=== PATIENT | male | born 1965 | race Caucasian/White ===

== ENCOUNTER 2022-04-08 16:29 | Inpatient (IN) ==
[2022-04-08] MEDS ORDERED: IOPAMIDOL 100 ML BOTTLE IV ONE (16:30)
[2022-04-08] MEDS ORDERED: LACTATED RINGERS 1,000 ML IV ONE (16:31)
[2022-04-08] MEDS ORDERED: ONDANSETRON 4 MG/2 ML VIAL IV ONE (16:31)
[2022-04-08] MEDS ORDERED: morphine 10 MG/ML VIAL IV ONE ×2 (16:31→18:18)
[2022-04-08] MEDS ORDERED: 0.9 % SODIUM CHLORIDE 1,000 ML IV ONE (16:55)
[2022-04-08 17:00] LABS: POC Calcium, Ionized 1.04 (1.16-1.32); POC Creatinine 1.5 (0.6-1.2); POC Potassium 3.5 (3.3-5.1)
[2022-04-08] MEDS ORDERED: PIPERACILLIN SODIUM/TAZOBACTAM 3.375 GM in DEXTROSE 5% IN WATER 50 ML IV ONE (17:03)
[2022-04-08 17:26] LABS: Basophils # (Auto) 0.06 K/mcL (0.00-0.30); Basophils % (Auto) 0.7 % (0.0-2.0); Eosinophils # (Auto) 0.05 K/mcL (0.00-0.70); Eosinophils % (Auto) 0.6 % (0.0-7.0); Hematocrit 33.2 % (40.1-51.0); Hemoglobin 11.5 g/dL (13.7-17.5); Lymphocytes # (Auto) 1.69 K/mcL (1.50-4.80); Lymphocytes % (Auto) 19.7 % (15.5-49.0); Mean Cell Volume 98.5 fL (80.0-100.0); Mean Corpuscular HGB Conc 34.6 g/dL (31.0-36.0); Mean Platelet Volume 11.9 fL (7.4-10.4); Monocytes # (Auto) 0.68 K/mcL (0.10-0.90); Monocytes % (Auto) 7.9 % (1.0-12.0); Neutrophils % (Auto) 70.6 % (38.0-78.0); Platelet Count 144 K/mcL (140-440); RBC 3.37 M/mcL (4.63-6.08); Red Cell Distribution Width 13.4 % (11.5-14.5); WBC 8.6 K/mcL (4.5-11.0)
[2022-04-08 17:44] LABS: ALT/SGPT 19 U/L (<40); AST/SGOT 287 U/L (<40); Albumin 3.8 gm/dL (3.2-5.2); Alkaline Phosphatase 169 U/L (39-117); Bilirubin,Direct < 0.2 mg/dL (0-0.3); Bilirubin,Total 0.6 mg/dL (0.1-1.0); Globulin 2.5 gm/dL (2.2-3.7)
--- NOTE | 2022-04-08 17:57 | Cat Scan Report ---
CLINICAL INFORMATION: Epigastric pain COMPARISON: Abdomen and pelvic CT 12/10/2016 TECHNIQUE: Following enteric contrast, 80 cc of Isovue-370 were injected intravenously, and 60 seconds later, 0.625 mm helical slices were obtained from the mid heart through the subtrochanteric regions. Following reconstruction, 2.5 mm sagittal, coronal and axial reformatted images were processed and reviewed at bone, lung and soft tissue windows. Five minutes later, 0.625 mm helical slices were obtained from the mid heart through the kidneys and viewed at soft tissue windows.The exam was performed using radiation dose optimization techniques including, but not limited to, automated exposure control, adjustment of the mA and/or kV according to patient size and use of iterative reconstruction technique. FINDINGS: Left diaphragm is moderately dated resulting in mild compressive subsegmental atelectasis in the overlying left lower lobe. This is a new finding. Remaining lung bases are clear. The visualized heart is grossly normal. No effusions. Abdominal images show mild fatty change within the liver. The gallbladder is enlarged with slight wall thickening/enhancement moderate rim of pericholecystic fluid. No stones identified. Intrahepatic, common hepatic and common bile duct have increased in caliber and are now moderately dilated colon CBD 12 mm. There is abrupt tapering of the intrapancreatic common bile duct in the ampullary region. No definite stone or mass identified, however. The pancreas is mildly enlarged and inhomogeneous low attenuation with moderate dilatation of pancreatic duct: diameter 4 mm. There is moderate fluid in the peripancreatic fat planes compatible with acute interstitial pancreatitis. Fluid extends into the lesser sac with a small amount in the mesentery. Both kidneys, adrenal glands, spleen and aorta, including aortic branches are normal in size configuration and attenuation without focal lesion. There is no adenopathy or free air Pelvic images show mild prostate enlargement: transverse dimension 5 cm. Mild diffuse wall thickening urinary bladder noted. Scattered sigmoid diverticula appreciated.. Moderate wall thickening of the right colon mild wall thickening of the transverse and left colon. Small bowel and stomach are grossly normal. Bone windows show no osseous abnormality IMPRESSION: 1. Severe acute interstitial pancreatitis. There is no necrosis, pseudocyst or other complication. Small amount of free fluid noted. 2. Moderate gallbladder enlargement with wall enhancement and pericholecystic fluid. This could indicate associated cholecystitis. No stones identified. Intrahepatic, common bile and pancreatic ducts are all moderately dilated to the ampullary level. No stone or mass identified. Stones may however be occult on CT. Suggest ultrasound to evaluate for stones and the gallbladder and possibly choledocholithiasis. 3. Moderate wall thickening of the ascending colon with mild wall thickening of the transverse and descending colon. The patient could have ischemic, inflammatory or infectious colitis as a secondary process. Consider colonoscopy. 4. Mild prostate enlargement with wall thickening urinary bladder compatible chronic bladder outlet narrowing related to prostatism. Interpreted and Authenticated by: Moo Woods 04/08/22
--- NOTE | 2022-04-08 18:22 | Emergency Department Note ---
Abdominal Pain HPI General Chief Complaint: Abdominal Pain Stated Complaint: ABD pain Time Seen by Provider: 04/08/22 16:30 Source: patient and EMS Mode of arrival: EMS History of Present Illness HPI Narrative: Narrative: This is a 56-year-old male with a history of significant alcohol use he reports he drinks about a half a gallon of whiskey every 4 days, prior history of alcohol use reports sudden onset mid epigastric abdominal pain that started 1 hour prior to arrival there is associated nausea and vomiting. He also has a history of H. pylori infection. He reports he was in his usual state of health prior to the onset of his symptoms. There has been no associated fevers or chills. There is no alleviating or exacerbating factors. His pain radiates into his back. Related Data Home Medications Medication Instructions Recorded Confirmed oxygen 2 L as needed See Rx Instructions .Route .COMPLEX 08/13/20 03/19/22 omeprazole 20 mg capsule,delayed See Rx Instructions .Route .COMPLEX 12/03/20 03/19/22 release losartan 100 mg tablet 100 mg PO QDAY 05/27/21 03/19/22 tamsulosin 0.4 mg capsule 0.4 mg PO QDAY PRN 01/07/22 03/19/22 furosemide 20 mg tablet 10 mg PO PRN 03/19/22 03/19/22 Previous Rx's Medication Instructions Recorded melatonin 5 mg tablet 5 mg PO .COMPLEX PRN sleep #60 tabs 08/23/20 fluticasone 250 mcg-salmeterol 50 1 inh inhalation BID #60 ea 03/13/21 mcg/dose blistr powdr for inhalation (Advair Diskus) albuterol sulfate 90 mcg/actuation 2 puff inhalation .Q4-6H PRN 09/30/21 aerosol inhaler (Ventolin HFA) wheezing and/or shortness of breath #18 grams folic acid 1 mg tablet 1 mg PO QDAY #90 tabs 11/19/21 ferrous sulfate 325 mg (65 mg 325 mg PO BID #60 tabs 12/17/21 iron) tablet pregabalin 75 mg capsule (Lyrica) 75 mg PO BID #60 caps 12/17/21 hydrocodone 7.5 mg-acetaminophen 1 tab PO .COMPLEX PRN pain #120 04/07/22 325 mg tablet tabs Allergies Allergy/AdvReac Type Severity Reaction Status Date / Time amlodipine Allergy Unknown Itching Verified 04/08/22 16:29 Terazosin Allergy Unknown Itching Verified 04/08/22 16:29 Review of Systems ROS ROS Narrative: Narrative: All systems ED: reviewed and negative except as stated. PFSH Narrative Patient History Narrative: Narrative: Medical/Surgical/Family History All Active Problems Acute pancreatitis (Acute) Chronic back pain (Acute) Strain of left hip (Acute) Duodenitis (Acute) Increased serum lipase level (Acute) H. pylori infection (Acute) C. difficile colitis (Acute) Colitis (Acute) Upper GI hemorrhage (Chronic) Hypertension (Chronic) Back pain (Chronic) Pain in joint, multiple sites (Chronic) Neutrophilia (Chronic) Screening for malignant neoplasm of colon (Chronic) Screening for malignant neoplasm of prostate (Chronic) Tobacco dependence (Chronic) Alcohol dependence (Chronic) Chronic bronchitis (Chronic) Hypertension (Chronic) GERD (gastroesophageal reflux disease) (Chronic) Anxiety (Chronic) Arthritis (Chronic) Muscle pain (Chronic) Daytime sleepiness (Chronic) Heart problem (Chronic) History of arthroplasty of right ankle (Chronic ~2015) Cellulitis of foot (Chronic) Urticaria (Chronic) COPD (chronic obstructive pulmonary disease) (Chronic) Bilateral lower extremity edema (Chronic) Eczema (Chronic) Claudication of both lower extremities (Chronic) Stasis dermatitis (Chronic) Prostatitis (Chronic) Difficulty urinating (Chronic) Dizziness (Chronic) Syncope (Chronic) Pneumonia (Chronic) Hypotension (Chronic) Tooth abscess (Chronic) Dysphagia (Chronic) Hypokalemia (Chronic) Ascending aorta enlargement (Chronic) Aortic root enlargement (Chronic) Low back pain (Chronic) Chronic pain (Chronic) Tobacco use (Chronic) 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) use of opiate analgesic (Chronic) Spondylosis without myelopathy or radiculopathy, lumbar region (Acute) Spondylosis without myelopathy or radiculopathy, lumbosacral region (Acute) Decreased renal function (Acute) Blurred vision, bilateral (Acute) Alteration in vision (Acute) History of Helicobacter pylori infection (Acute) Episode of gagging (Acute) Nausea & vomiting (Acute) Low folate (Acute) Iron deficiency anemia (Acute) Resistant hypertension (Chronic) Excessive chloride salt intake (Chronic) Hyponatremia (Chronic) Alcohol abuse (Acute) Medical History Alcohol dependence Anxiety Arthritis Back pain Chronic alcohol use Chronic bronchitis Chronic pain Daytime sleepiness GERD (gastroesophageal reflux disease) Heart problem Hypertension Iron deficiency anemia 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) use of opiate analgesic for nonmalignant pain Low back pain Low folate Muscle pain Neutrophilia Pain in joint, multiple sites Screening for malignant neoplasm of colon Screening for malignant neoplasm of prostate Tobacco dependence Tobacco use Surgical History History of arthroplasty of right ankle (~2015) due to fracture Family History Family/Other Cancer Hypertension Mother Hypertension Arthritis Father Arthritis Hypertension Sister Arthritis Chronic pain Social History Smoking Status: Current every day smoker Alcohol Intake Frequency: 2+ drinks per day Substance Use: does not use Exam Narrative Narrative: Narrative: Vital signs noted General: Awake. Alert. Significant distress HEENT: NCAT PERRL EOMI. No conjunctivitis. Membranes moist. Neck: Supple, trachea midline Cardiovascular: RRR. No murmur. No rubs. No gallops. Respiratory: No respiratory distress. Breath sounds equal. Lungs clear. Gastrointestinal: Soft. Midepigastric tenderness to palpation there is voluntary guarding diffusely Musculoskeletal: No pain. No soft tissue swelling. Good ROM. No signs injury Skin: Warm. Dry. No rash Neurologic: Alert and oriented x3 moves all extremities equally and fully, speech is fluent face is symmetric Course Vital Signs Vital signs: Vital Signs Temperature 96.6 F L 04/08/22 16:29 Pulse Rate 68 04/08/22 16:29 Respiratory Rate 20 04/08/22 16:29 Blood Pressure 138/103 04/08/22 16:29 Pulse Oximetry (%) 100 04/08/22 16:29 Oxygen Delivery Method 04/08/22 16:29 Temperature 96.6 F L 04/08/22 16:29 Pulse Rate 73 04/08/22 18:39 Respiratory Rate 20 04/08/22 16:29 Blood Pressure 140/97 04/08/22 18:39 Pulse Oximetry (%) 100 04/08/22 18:39 Oxygen Delivery Method 04/08/22 16:29 [facility] MDM Narrative Medical decision making narrative: Narrative: Patient presents to the emergency department with midepigastric pain. His lipase is found to be 1700, CT scan is concerning for acute pancreatitis there is also inflammatory changes including pericholecystic fluid gallbladder wall thickening. His AST is mildly elevated likely related to his alcohol use, ALT is not significantly elevated, his bilirubin is 0.6 reviewing with low suspicion for an obstructed biliary stone. I did speak with Dr. Mackay on-call for surgery that these are likely secondary findings from the pancreatitis. He did recommen d obtaining an ultrasound and would like to be consulted for the case. I did give patient Zosyn he will be given 30 cc/kg of IV fluids. He has required multiple doses of IV pain medications for his pancreatitis. Lab Data Result diagrams: 04/08/22 16:47 Labs: Lab Results 04/08/22 04/08/22 04/08/22 Range/Units 16:47 16:47 16:50 WBC 8.6 (4.5-11.0) K/mcL RBC 3.37 L (4.63-6.08) M/mcL Hgb 11.5 L (13.7-17.5) g/dL Hct 33.2 L (40.1-51.0) % POC Hct (41-55) MCV 98.5 (80.0-100.0) fL MCH 34.1 H (26.0-34.0) pg MCHC 34.6 (31.0-36.0) g/dL RDW 13.4 (11.5-14.5) % Plt Count 144 (140-440) K/mcL MPV 11.9 H (7.4-10.4) fL Immature Gran % (Auto) 0.5 (0.0-0.5) % Neut % (Auto) 70.6 (38.0-78.0) % Lymph % (Auto) 19.7 (15.5-49.0) % Bailey % (Auto) 7.9 (1.0-12.0) % Eos % (Auto) 0.6 (0.0-7.0) % Baso % (Auto) 0.7 (0.0-2.0) % Lymph # (Auto) 1.69 (1.50-4.80) K/mcL Bailey # (Auto) 0.68 (0.10-0.90) K/mcL Eos # (Auto) 0.05 (0.00-0.70) K/mcL Baso # (Auto) 0.06 (0.00-0.30) K/mcL Immature Gran # 0.04 (0.00-0.05) K/mcl Absolute Neutrophils 6.04 (1.80-8.00) K/mcL POC VBG pH 7.44 H (7.32-7.42) POC VBG pCO2 at Temp 27.3 L (41-51) POC VBG pO2 30 (25-40) POC VBG HCO3 18.3 L (24-28) POC VBG Total CO2 19.0 L (25-29) POC Venous O2 Sat 61.0 (40-70) POC VBG Base Excess -6.0 L (-2-2) VBG Lactic Acid 5.2 H* (0.5-2) POC Sodium (133-145) POC Potassium (3.3-5.1) POC Chloride (96-108) POC Total CO2 (22-30) POC BUN (6-20) POC Creatinine (0.6-1.2) POC Glucose (70-105) POC WB Ioniz Calcium (1.16-1.32) Total Bilirubin 0.6 (0.1-1.0) mg/dL Direct Bilirubin < 0.2 (0-0.3) mg/dL AST 287 H (<40) U/L ALT 19 (<40) U/L Alkaline Phosphatase 169 H (39-117) U/L Total Protein 6.3 (5.9-8.4) gm/dL Albumin 3.8 (3.2-5.2) gm/dL Globulin 2.5 (2.2-3.7) gm/dL Lipase 1755 H (7-60) U/L POC Troponin I (0.02-0.08) 04/08/22 04/08/22 Range/Units 16:54 16:56 WBC (4.5-11.0) K/mcL RBC (4.63-6.08) M/mcL Hgb (13.7-17.5) g/dL Hct (40.1-51.0) % POC Hct 38.0 L (41-55) MCV (80.0-100.0) fL MCH (26.0-34.0) pg MCHC (31.0-36.0) g/dL RDW (11.5-14.5) % Plt Count (140-440) K/mcL MPV (7.4-10.4) fL Immature Gran % (Auto) (0.0-0.5) % Neut % (Auto) (38.0-78.0) % Lymph % (Auto) (15.5-49.0) % Bailey % (Auto) (1.0-12.0) % Eos % (Auto) (0.0-7.0) % Baso % (Auto) (0.0-2.0) % Lymph # (Auto) (1.50-4.80) K/mcL Bailey # (Auto) (0.10-0.90) K/mcL Eos # (Auto) (0.00-0.70) K/mcL Baso # (Auto) (0.00-0.30) K/mcL Immature Gran # (0.00-0.05) K/mcl Absolute Neutrophils (1.80-8.00) K/mcL POC VBG pH (7.32-7.42) POC VBG pCO2 at Temp (41-51) POC VBG pO2 (25-40) POC VBG HCO3 (24-28) POC VBG Total CO2 (25-29) POC Venous O2 Sat (40-70) POC VBG Base Excess (-2-2) VBG Lactic Acid (0.5-2) POC Sodium 135 (133-145) POC Potassium 3.5 (3.3-5.1) POC Chloride 101 (96-108) POC Total CO2 19.0 L (22-30) POC BUN 13 (6-20) POC Creatinine 1.5 H (0.6-1.2) POC Glucose 101 (70-105) POC WB Ioniz Calcium 1.04 L (1.16-1.32) Total Bilirubin (0.1-1.0) mg/dL Direct Bilirubin (0-0.3) mg/dL AST (<40) U/L ALT (<40) U/L Alkaline Phosphatase (39-117) U/L Total Protein (5.9-8.4) gm/dL Albumin (3.2-5.2) gm/dL Globulin (2.2-3.7) gm/dL Lipase (7-60) U/L POC Troponin I 0.01 L (0.02-0.08) Discharge Plan Patient/Caregiver Discharge Instructions Pt seen by [facility]/PA only: No Clinical Impression: Acute pancreatitis Patient Disposition: Xfer As Inpt ([facility]) Condition: Serious Follow up with: Pasquale Laboy, JASPREET [Primary Care Provider] - Prescriptions: No Action melatonin 5 mg tablet 5 mg PO .COMPLEX PRN (Reason: sleep) Qty: 60 2RF Rx Instructions: 5 mg PO 1-2 tabs q HS prn for insomnia PRN; albuterol sulfate [Ventolin HFA] 90 mcg/actuation HFA aerosol inhaler 2 puff INHALATION .Q4-6H PRN (Reason: wheezing and/or shortness of breath) Qty: 18 5RF folic acid 1 mg tablet 1 mg PO QDAY Qty: 90 1RF hydrocodone-acetaminophen 7.5-325 mg tablet 1 tab PO .COMPLEX PRN (Reason: pain) Qty: 120 0RF Rx Instructions: 1 tab orally q 6 hrs prn for pain. Max of 4/day. Must last 30 days. PRN; tamsulosin 0.4 mg capsule 0.4 mg PO QDAY PRN oxygen 2 L as needed See Rx Instructions .ROUTE .COMPLEX Rx Instructions: Nasal as needed; omeprazole 20 mg capsule,delayed release(DR/EC) See Rx Instructions .ROUTE .COMPLEX Dose Instruction: take 1 capsule by mouth once daily Rx Instructions: take capsule by mouth once daily losartan 100 mg tablet 100 mg PO QDAY furosemide 20 mg tablet 10 mg PO PRN fluticasone propion-salmeterol [Advair Diskus] 250-50 mcg/dose blister with device 1 inh INHALATION BID Qty: 60 5RF ferrous sulfate 325 mg (65 mg iron) tablet 325 mg PO BID Qty: 60 2RF pregabalin [Lyrica] 75 mg capsule 75 mg PO BID Qty: 60 2RF
--- NOTE | 2022-04-08 20:49 | Internal Med History&Physical ---
HPI History of Present Illness Patient information: Note initiated : 04/08/22 at 8:41 pm Service Date, if different from initiated Date: [] Patient: Artie Zavala 56 y/o M admitted on for ABD pain. Chief Complaint: [] History of present illness: Mr. Zavala is a 56 year old male with a history of hypertension, COPD, GERD, tobacco use disorder, alcohol use disorder who presented to the emergency department for abdominal pain and found to have acute pancreatitis. CT abdomen pelvis with contrast showed severe acute interstitial pancreatitis with no evidence of necrosis pseudocyst or other complication. The CT scan also showed moderate gallbladder enlargement with gallbladder wall enhancement and pericholecystic fluid, no gallstones identified. The patient drinks of substantial amount of alcohol daily and has had episodes of acute pancreatitis before. Laboratory work-up in the ED shows the patient also has an acute kidney injury, elevated lactic acid, hypocalcemia, elevated AST with normal ALT consistent with alcoholic hepatitis. Lipase level was 1755. Review of systems Constitutional: no fever, fatigue, or weight loss Eyes: no vision changes or pain Cardiovascular: no chest pain, no palpitations Respiratory: no cough or dyspnea Gastrointestinal: Positive for epigastric abdominal pain radiating to back. Genitourinary: no dysuria or difficulty voiding Musculoskeletal: no arthralgia or myalgia Integumentary: no skin lesion or wound Neurological: no focal weakness or numbness Psychiatric: no anxiety or depression Physical exam Head: Atraumatic, normal inspection. Eyes: normal appearance, no scleral icterus. Neck: full ROM Respiratory: no respiratory distress. Cardiovascular: normal rate and rhythm, S1, S2. GI/Abdominal: Distended abdomen, diffusely tender, involuntary guarding. Extremities: full range of motion, nontender. Neurological: CN II-XII intact, intact motor, intact sensation. Psychiatric: normal mood. Skin: warm, normal color PFSH PFSH All Active Problems Acute pancreatitis (Acute) Chronic back pain (Acute) Strain of left hip (Acute) Duodenitis (Acute) Increased serum lipase level (Acute) H. pylori infection (Acute) C. difficile colitis (Acute) Colitis (Acute) Upper GI hemorrhage (Chronic) Hypertension (Chronic) Back pain (Chronic) Pain in joint, multiple sites (Chronic) Neutrophilia (Chronic) Screening for malignant neoplasm of colon (Chronic) Screening for malignant neoplasm of prostate (Chronic) Tobacco dependence (Chronic) Alcohol dependence (Chronic) Chronic bronchitis (Chronic) Hypertension (Chronic) GERD (gastroesophageal reflux disease) (Chronic) Anxiety (Chronic) Arthritis (Chronic) Muscle pain (Chronic) Daytime sleepiness (Chronic) Heart problem (Chronic) History of arthroplasty of right ankle (Chronic ~2016) Cellulitis of foot (Chronic) Urticaria (Chronic) COPD (chronic obstructive pulmonary disease) (Chronic) Bilateral lower extremity edema (Chronic) Eczema (Chronic) Claudication of both lower extremities (Chronic) Stasis dermatitis (Chronic) Prostatitis (Chronic) Difficulty urinating (Chronic) Dizziness (Chronic) Syncope (Chronic) Pneumonia (Chronic) Hypotension (Chronic) Tooth abscess (Chronic) Dysphagia (Chronic) Hypokalemia (Chronic) Ascending aorta enlargement (Chronic) Aortic root enlargement (Chronic) Low back pain (Chronic) Chronic pain (Chronic) Tobacco use (Chronic) Chronic alcohol use (Chronic) penitentiary (current) use of opiate analgesic (Chronic) Spondylosis without myelopathy or radiculopathy, lumbar region (Acute) Spondylosis without myelopathy or radiculopathy, lumbosacral region (Acute) Decreased renal function (Acute) Blurred vision, bilateral (Acute) Alteration in vision (Acute) History of Helicobacter pylori infection (Acute) Episode of gagging (Acute) Nausea & vomiting (Acute) Low folate (Acute) Iron deficiency anemia (Acute) Resistant hypertension (Chronic) Excessive chloride salt intake (Chronic) Hyponatremia (Chronic) Alcohol abuse (Acute) Medical History Alcohol dependence Anxiety Arthritis Back pain Chronic alcohol use Chronic bronchitis Chronic pain Daytime sleepiness GERD (gastroesophageal reflux disease) Heart problem Hypertension Iron deficiency 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 analgesic for nonmalignant pain Low back pain Low folate Muscle pain Neutrophilia Pain in joint, multiple sites Screening for malignant neoplasm of colon Screening for malignant neoplasm of prostate Tobacco dependence Tobacco use Surgical History History of arthroplasty of right ankle (~2016) due to fracture Family History Family/Other Cancer Hypertension Mother Hypertension Arthritis Father Arthritis Hypertension Sister Arthritis Chronic pain Social History marital status: physical activity: none smoking status: Current every day smoker tobacco type: cigarettes per day: 1 smoking status start date: 07/26/81 alcohol intake frequency: 2+ drinks per day substance use type: does not use seatbelt use: always MEDS/ALLERGIES Home Medications and Allergies Home Medications Medication Instructions Recorded Confirmed Type oxygen 2 L as needed See Rx Instructions .Route .COMPLEX 08/13/20 03/19/22 History melatonin 5 mg tablet 5 mg PO .COMPLEX PRN sleep #60 tabs 08/23/20 03/19/22 Rx omeprazole 20 mg capsule,delayed See Rx Instructions .Route .COMPLEX 12/03/20 03/19/22 History release fluticasone 250 mcg-salmeterol 50 1 inh inhalation BID #60 ea 03/13/21 03/19/22 Rx mcg/dose blistr powdr for inhalation (Advair Diskus) losartan 100 mg tablet 100 mg PO QDAY 05/27/21 03/19/22 History albuterol sulfate 90 mcg/actuation 2 puff inhalation .Q4-6H PRN 09/30/21 03/19/22 Rx aerosol inhaler (Ventolin HFA) wheezing and/or shortness of breath #18 grams folic acid 1 mg tablet 1 mg PO QDAY #90 tabs 11/19/21 03/19/22 Rx ferrous sulfate 325 mg (65 mg 325 mg PO BID #60 tabs 12/17/21 03/19/22 Rx iron) tablet pregabalin 75 mg capsule (Lyrica) 75 mg PO BID #60 caps 12/17/21 03/19/22 Rx tamsulosin 0.4 mg capsule 0.4 mg PO QDAY PRN 01/07/22 03/19/22 History furosemide 20 mg tablet 10 mg PO PRN 03/19/22 03/19/22 History hydrocodone 7.5 mg-acetaminophen 1 tab PO .COMPLEX PRN pain #120 04/07/22 Rx 325 mg tablet tabs Allergies Allergy/AdvReac Type Severity Reaction Status Date / Time amlodipine Allergy Unknown Itching Verified 04/08/22 16:29 Terazosin Allergy Unknown Itching Verified 04/08/22 16:29 EXAM Constitutional Vitals: Temp Pulse Resp BP Pulse Ox O2 Del Method 96.6 F L 83 20 123/93 98 04/08/22 16:29 04/08/22 20:36 04/08/22 16:29 04/08/22 20:36 04/08/22 20:36 04/08/22 16:29 DATA Data Completed and Pending Labs: Labs from last 24 hours 04/08/22 04/08/22 04/08/22 16:56 16:54 16:50 WBC RBC Hgb Hct POC Hct 38.0 L MCV MCH MCHC RDW Plt Count MPV Immature Gran % (Auto) Neut % (Auto) Lymph % (Auto) Mineral % (Auto) Eos % (Auto) Baso % (Auto) Lymph # (Auto) Mineral # (Auto) Eos # (Auto) Baso # (Auto) Immature Gran # Absolute Neutrophils POC VBG pH 7.44 H POC VBG pCO2 at Temp 27.3 L POC VBG pO2 30 POC VBG HCO3 18.3 L POC VBG Total CO2 19.0 L POC Venous O2 Sat 61.0 POC VBG Base Excess -6.0 L VBG Lactic Acid 5.2 H* POC Sodium 135 POC Potassium 3.5 POC Chloride 101 POC Total CO2 19.0 L POC BUN 13 POC Creatinine 1.5 H POC Glucose 101 POC WB Ioniz Calcium 1.04 L Total Bilirubin Direct Bilirubin AST ALT Alkaline Phosphatase Total Protein Albumin Globulin Lipase POC Troponin I 0.01 L 04/08/22 04/08/22 16:47 16:47 WBC 8.6 RBC 3.37 L Hgb 11.5 L Hct 33.2 L POC Hct MCV 98.5 MCH 34.1 H MCHC 34.6 RDW 13.4 Plt Count 144 MPV 11.9 H Immature Gran % (Auto) 0.5 Neut % (Auto) 70.6 Lymph % (Auto) 19.7 Mineral % (Auto) 7.9 Eos % (Auto) 0.6 Baso % (Auto) 0.7 Lymph # (Auto) 1.69 Mineral # (Auto) 0.68 Eos # (Auto) 0.05 Baso # (Auto) 0.06 Immature Gran # 0.04 Absolute Neutrophils 6.04 POC VBG pH POC VBG pCO2 at Temp POC VBG pO2 POC VBG HCO3 POC VBG Total CO2 POC Venous O2 Sat POC VBG Base Excess VBG Lactic Acid POC Sodium POC Potassium POC Chloride POC Total CO2 POC BUN POC Creatinine POC Glucose POC WB Ioniz Calcium Total Bilirubin 0.6 Direct Bilirubin < 0.2 AST 287 H ALT 19 Alkaline Phosphatase 169 H Total Protein 6.3 Albumin 3.8 Globulin 2.5 Lipase 1755 H POC Troponin I Pending A/P Narrative A/P Narrative: Assessment: 56 year old male with a history of hypertension, COPD, GERD, tobacco use disorder, alcohol use disorder admitted for moderate to severe acute pancreatitis likely secondary to alcohol. CT abdomen pelvis with contrast showed severe acute interstitial pancreatitis as well as moderate gallbladder enlargement and wall enhancement and pericholecystic fluid, no gallstones identified on CT scan. #Moderate to severe acute pancreatitis likely secondary to alcohol #Acute kidney injury secondary to acute pancreatitis #Moderate gallbladder wall enhancement and pericholecystic fluid #Severe alcohol use disorder #Severe tobacco use disorder #COPD #Hypertension #GERD Plan -IV fluid, monitor urine output and volume status. -Analgesics as needed. -Monitor CBC, inpatient panel. -Replace electrolytes as needed. -Follow-up right upper quadrant ultrasound report. -Home medication reconciliation, continue important meds. -Nicotine replacement. -Monitor for alcohol withdrawal. -Thiamine and folic acid supplementation. -Clear liquid diet. -DVT prophylaxis: Lovenox -CODE STATUS: Programmer Spent With Patient Time: Total time spent is greater than 50% in coordination of care (as documented) at patient's floor/unit and/or counseling patient:
[2022-04-08] MEDS: LACTATED RINGERS 1,000 ML IV SCH (21:20)
[2022-04-08] MEDS ORDERED: ACETAMINOPHEN 325 MG TABLET PO PRN (21:43)
[2022-04-08] MEDS ORDERED: SENNOSIDES 1 TABLET PO PRN (21:43)
[2022-04-08] MEDS ORDERED: ONDANSETRON 4 MG/2 ML VIAL IV PRN (21:43)
[2022-04-08] MEDS ORDERED: HYDROmorphone 0.5 MG/0.5 ML SYRINGE IV PRN (21:43)
[2022-04-08] MEDS ORDERED: LACTULOSE 20 GM/30 ML ORAL.SOL PO PRN (21:43)
[2022-04-08] MEDS ORDERED: NICOTINE POLACRILEX 2 MG GUM CHEW/PARK PRN (21:43)
[2022-04-08] MEDS: 0.9 % SODIUM CHLORIDE 10 ML SYRINGE IV SCH (21:52)
[2022-04-08] MEDS: HYDROmorphone 1 MG/ML SYRINGE IV PRN ×2 (21:55→23:49)
[2022-04-08] MEDS ORDERED: HYDROmorphone 1 MG/ML SYRINGE ONE (22:06)
[2022-04-09] MEDS: LACTATED RINGERS 1,000 ML IV SCH ×3 (01:26→11:16)
--- NOTE | 2022-04-09 02:56 | Ultrasound Report ---
CLINICAL INFORMATION: Right upper quadrant pain COMPARISON: None. FINDINGS: Liver is normal in size with elevated echotexture compatible fatty change. No focal hepatic lesion. The gallbladder is enlarged with mild wall thickening. No stones identified. A 4 mm polyp noted in the gallbladder fundus, but no stones identified. Common bile duct is moderately dilated colon 12 mm. No stone could be identified within the common bile duct however. The pancreas is mildly enlarged and heterogeneous compatible with the diagnosis of pancreatitis. Small amount of free fluid noted. IMPRESSION: 1. Moderately enlarged gallbladder with diffuse wall thickening. No stones identified. This could represent associated acalculus cholecystitis. 2. Moderate dilatation of the common bile duct. No stone identified within the duct. Note: Stones in the common bile duct may not be detected by ultrasound. Suggest gastroenterology referral in consultation for ERCP 3, Heterogeneous pancreas compatible with the CT diagnosis of acute interstitial pancreatitis. Interpreted and Authenticated by: Moo Woods 04/09/22
[2022-04-09] MEDS: NICOTINE 21 MG PATCH TOPICAL SCH ×2 (05:34→10:42)
[2022-04-09] MEDS: 0.9 % SODIUM CHLORIDE 10 ML SYRINGE IV SCH ×3 (05:45→20:19)
[2022-04-09 06:49] LABS: Basophils # (Auto) 0.06 K/mcL (0.00-0.30); Basophils % (Auto) 0.3 % (0.0-2.0); Eosinophils # (Auto) 0.04 K/mcL (0.00-0.70); Eosinophils % (Auto) 0.2 % (0.0-7.0); Hematocrit 32.9 % (40.1-51.0); Hemoglobin 11.4 g/dL (13.7-17.5); Lymphocytes # (Auto) 0.33 K/mcL (1.50-4.80); Lymphocytes % (Auto) 1.7 % (15.5-49.0); Mean Cell Volume 101.9 fL (80.0-100.0); Mean Corpuscular HGB Conc 34.7 g/dL (31.0-36.0); Mean Platelet Volume 12.2 fL (7.4-10.4); Monocytes # (Auto) 0.59 K/mcL (0.10-0.90); Monocytes % (Auto) 3.1 % (1.0-12.0); Neutrophils % (Auto) 94.3 % (38.0-78.0); Platelet Count 123 K/mcL (140-440); RBC 3.23 M/mcL (4.63-6.08); Red Cell Distribution Width 13.7 % (11.5-14.5); WBC 19.3 K/mcL (4.5-11.0)
[2022-04-09 06:58] LABS: ALT/SGPT 34 U/L (<40); AST/SGOT 213 U/L (<40); Albumin 3.2 gm/dL (3.2-5.2); Albumin/Globulin Ratio 1.2 (1.0-2.3); Alkaline Phosphatase 280 U/L (39-117); Bilirubin,Direct 0.3 mg/dL (<0.3); Bilirubin,Total 0.7 mg/dL (0.1-1.0); Blood Urea Nitrogen 9 mg/dL (6-20); Calcium 7.8 mg/dL (8.6-10.4); Carbon Dioxide 19 mmol/L (22-30); Chloride 98 mmol/L (96-108); Globulin 2.6 gm/dL (2.2-3.7); Glomerular Filtration Rate 94; Glucose 84 mg/dL (70-105); Lactate Dehydrogenase 309 U/L (135-225); Phosphorous 3.2 mg/dL (2.5-4.5); Triglycerides 89 mg/dL (<150)
[2022-04-09] MEDS: FOLIC ACID 1 MG TABLET PO SCH (09:00)
[2022-04-09] MEDS: ENOXAPARIN 40 MG/0.4 ML SYRINGE SQ SCH (09:00)
[2022-04-09] MEDS ORDERED: MAGNESIUM SULFATE 2 GM/50 ML BAG IV ONE (09:00)
[2022-04-09] MEDS: HYDROmorphone 1 MG/ML SYRINGE IV PRN (09:12)
[2022-04-09] MEDS ORDERED: HYDROmorphone 1 MG/ML SYRINGE IV PRN (10:30)
[2022-04-09] MEDS: OMEPRAZOLE 20 MG CAPSULE PO SCH (11:04)
[2022-04-09] MEDS: LOSARTAN 50 MG TABLET PO SCH (11:04)
[2022-04-09] MEDS: FLUTICASONE/SALMETEROL 250/50 INHALER #14 INH SCH ×2 (11:06→21:40)
[2022-04-09] MEDS: 0.9 % SODIUM CHLORIDE 1,000 ML IV SCH ×4 (11:23→23:25)
[2022-04-09] MEDS: THIAMINE 100 MG in 0.9 % SODIUM CHLORIDE 50 ML IV SCH (11:23)
[2022-04-09] MEDS ORDERED: LORazepam 2 MG/ML VIAL IV PRN (11:32)
[2022-04-09] MEDS: cefTRIAXone 2 GM in DEXTROSE 5% IN WATER 50 ML IV SCH (12:44)
[2022-04-09] MEDS: metroNIDAZOLE 500 MG/100 ML BAG IV SCH ×2 (14:16→21:39)
[2022-04-09] MEDS: LORazepam 2 MG/ML VIAL IV PRN ×2 (14:58→22:44)
--- NOTE | 2022-04-09 15:08 | Internal Med Progress Note ---
SUBJECTIVE Subjective Patient information: Note initiated : 04/09/22 at 3:03 pm Service Date, if different from initiated Date: [] Patient: Artie Zavala 56 y/o M admitted on 04/08/22 for ABD pain. Chief Complaint: [] Interval history: Mr. Zavala is a 56 year old male with a history of hypertension, COPD, GERD, tobacco use disorder, alcohol use disorder who presented to the emergency department for abdominal pain and found to have acute pancreatitis. CT abdomen pelvis with contrast showed severe acute interstitial pancreatitis with no rowan dence of necrosis pseudocyst or other complication. The CT scan also showed moderate gallbladder enlargement with gallbladder wall enhancement and pericholecystic fluid, no gallstones identified. The patient drinks of substantial amount of alcohol daily and has had episodes of acute pancreatitis b efore. Laboratory work-up in the ED shows the patient also has an acute kidney injury, elevated lactic acid, hypocalcemia, elevated AST with normal ALT consistent with alcoholic hepatitis. Lipase level was 1755. 04/09 Patient had a high-grade temp overnight, leukocytosis noted from a morning labs. Acute kidney injury resolved with IV fluid. Lactic acid downtrending. Right upper quadrant ultrasound showed a moderately enlarged gallbladder with diffuse wall thickening, no stones identified. There is also moderate dilation of the common bile duct, no stone identified within the duct. Started empiric ceftriaxone and metronidazole IV for possible acalculous cholecystitis. MRCP ordered, GI and surgery consulted. Continue clear liquid diet for now. Physical exam Head: Atraumatic, normal inspection. Eyes: normal appearance, no scleral icterus. Neck: full ROM Respiratory: no respiratory distress. Cardiovascular: normal rate and rhythm, S1, S2. GI/Abdominal: Distended abdomen, diffusely tender, involuntary guarding. Extremities: full range of motion, nontender. Neurological: CN II-XII intact, intact motor, intact sensation. Psychiatric: normal mood. Skin: warm, normal color Constitutional Vitals: Vital Signs Temp Pulse Resp BP Pulse Ox O2 Del Method O2 Flow Rate 98.3 F 94 H 19 157/109 95 2 04/09/22 08:33 04/09/22 08:33 04/09/22 13:25 04/09/22 10:01 04/09/22 08:33 04/09/22 00:00 04/09/22 00:00 Period Temp Pulse Resp BP Sys/Mata Pulse Ox O2 Del Method O2 Flow Rate Last 24 Hr 96.6 F-100.3 F 65-104 11-20 122-176/85-113 90-100 Nasal Cannula-Room Air 2-3 Intake and Output 04/09/22 04/09/22 04/09/22 05:59 13:59 21:59 Intake Total 2530 1101 Output Total 275 275 Balance 2255 826 Weight 61.779 kg Patient Weight 04/10/22 05:59 Weight 61.779 kg Intake & Output: Intake & Output 04/09/22 04/09/22 04/09/22 05:59 13:59 21:59 Intake Total 2530 1101 Output Total 275 275 Balance 2255 826 Weight 61.779 kg Intake: IV 2000 1101 Lactated Ringers 1,000 ml @ 250 2000 1000 mls/hr IV .Q4H [facility] Rx#: [id number] Vitamin B1 100 mg In Sodium 51 Chloride 0.9% 50 ml @ 50 mls/hr IV DAILY [facility] Rx#:[id number] Oral 530 Output: Void Amount 275 275 Other: Urine Appearance Clear Clear Urine Color Bright Yellow Light Leyla Urine Odor Normal Normal Stool Size Small Stool Color Brown Stool Consistency Watery Loose # Voids 1 # Bowel Movements 1 OBJ DATA Labs CBC & Chem 7: 04/09/22 05:26 04/09/22 05:26 Labs: Abnormal Lab Results 04/09/22 04/09/22 04/08/22 05:26 05:26 22:24 WBC 19.3 H RBC 3.23 L Hgb 11.4 L Hct 32.9 L POC Hct MCV 101.9 H MCH 35.3 H Plt Count 123 L MPV 12.2 H Neut % (Auto) 94.3 H Lymph % (Auto) 1.7 L Lymph # (Auto) 0.33 L Immature Gran # 0.08 H Absolute Neutrophils 18.16 H POC VBG pH POC VBG pCO2 at Temp POC VBG HCO3 POC VBG Total CO2 POC VBG Base Excess VBG Lactic Acid 3.3 H Sodium 129 L Carbon Dioxide 19 L POC Total CO2 POC Creatinine Calcium 7.8 L POC WB Ioniz Calcium Magnesium 1.3 L Direct Bilirubin 0.3 H GGT 599 H AST 213 H Alkaline Phosphatase 280 H Lactate Dehydrogenase 309 H Total Protein 5.8 L Lipase POC Troponin I 04/08/22 04/08/22 04/08/22 16:56 16:54 16:50 WBC RBC Hgb Hct POC Hct 38.0 L MCV MCH Plt Count MPV Neut % (Auto) Lymph % (Auto) Lymph # (Auto) Immature Gran # Absolute Neutrophils POC VBG pH 7.44 H POC VBG pCO2 at Temp 27.3 L POC VBG HCO3 18.3 L POC VBG Total CO2 19.0 L POC VBG Base Excess -6.0 L VBG Lactic Acid 5.2 H* Sodium Carbon Dioxide POC Total CO2 19.0 L POC Creatinine 1.5 H Calcium POC WB Ioniz Calcium 1.04 L Magnesium Direct Bilirubin GGT AST Alkaline Phosphatase Lactate Dehydrogenase Total Protein Lipase POC Troponin I 0.01 L 04/08/22 04/08/22 16:47 16:47 WBC RBC 3.37 L Hgb 11.5 L Hct 33.2 L POC Hct MCV MCH 34.1 H Plt Count MPV 11.9 H Neut % (Auto) Lymph % (Auto) Lymph # (Auto) Immature Gran # Absolute Neutrophils POC VBG pH POC VBG pCO2 at Temp POC VBG HCO3 POC VBG Total CO2 POC VBG Base Excess VBG Lactic Acid Sodium Carbon Dioxide POC Total CO2 POC Creatinine Calcium POC WB Ioniz Calcium Magnesium Direct Bilirubin GGT AST 287 H Alkaline Phosphatase 169 H Lactate Dehydrogenase Total Protein Lipase 1755 H POC Troponin I Meds: Medications Acetaminophen (Acetaminophen 325 Mg Tablet) 650 mg PO Q6HP PRN; Protocol PRN Reason: Per Pain Protocol/Fever > 101 Hydrocodone Bitart/Acetaminophen (Hydrocodone/Apap 5/325mg Tablet) 1 tab PO Q4HP PRN; Protocol PRN Reason: Per Pain Protocol Albuterol Sulfate (Albuterol Sulfate 200 Puff Inhaler) 2 puff INH Q4-6HP PRN PRN Reason: wheezing and/or shortness of breath Enoxaparin Sodium (Enoxaparin 40 Mg/0.4 Ml Syringe) 40 mg SQ DAILY [facility] Last Admin: 04/09/22 09:00 Dose: 40 mg Folic Acid (Folic Acid 1 Mg Tablet) 1 mg PO DAILY [facility] Last Admin: 04/09/22 09:00 Dose: 1 mg Hydromorphone HCl (Hydromorphone 0.5 Mg/0.5 Ml Syringe) 0.5 - 1 mg IV Q2HP PRN; Protocol PRN Reason: Per Pain Protocol Thiamine HCl 100 mg/ Sodium (Chloride) 51 mls @ 50 mls/hr IV DAILY [facility] Stop: 04/11/22 10:02 Last Infusion: 04/09/22 13:08 Dose: Infused Ceftriaxone Sodium 2 gm/ (Dextrose) 50 mls @ 100 mls/hr IV Q24H [facility]; Protocol Last Admin: 04/09/22 12:44 Dose: 100 mls/hr Metronidazole (Flagyl) 500 mg in 100 mls @ 100 mls/hr IV Q8H [facility]; Protocol Last Admin: 04/09/22 14:16 Dose: 100 mls/hr Sodium Chloride (Sodium Chloride 0.9%) 1,000 mls @ 250 mls/hr IV .Q4H [facility] Last Admin: 04/09/22 11:23 Dose: 250 mls/hr Lactulose (Lactulose 20 Gm/30 Ml Oral.Sarah) 10 gm PO DAILYP PRN PRN Reason: Constipation Lorazepam (Lorazepam 2 Mg/Ml Vial) 1 mg IV Q1HP PRN PRN Reason: ANXIETY/SEDATION Last Admin: 04/09/22 14:58 Dose: 1 mg Losartan Potassium (Losartan 50 Mg Tablet) 100 mg PO DAILY [facility] Last Admin: 04/09/22 11:04 Dose: 100 mg Nicotine (Nicotine 21 Mg Patch) 21 mg TOPICAL DAILY@1000 [facility] Last Admin: 04/09/22 10:42 Dose: 21 mg Nicotine Polacrilex (Nicotine Polacrilex 2 Mg Gum) 2 mg CHEW/PARK Q4HP PRN PRN Reason: Nicotine Cravings Omeprazole ([facility] 20 Mg Capsule) [facility] Admin: 04/09/22 11:04 Dose: 20 mg Ondansetron HCl (Ondansetron 4 Mg/2 Ml Vial) 4 mg IV Q4HP PRN; Protocol PRN Reason: Nausea And Vomiting Last Admin: 04/08/22 23:48 Dose: 4 mg Oxycodone/Acetaminophen (Oxycodone/Apap 5/325mg Tablet) 1 tab PO Q4HP PRN; Protocol PRN Reason: Per Pain Protocol Pregabalin (Pregabalin 75 Mg Capsule) 75 mg PO BID [facility] Fluticasone/Salmeterol (Fluticasone/Salmeterol 250/50 Inhaler #14) 1 puff INH BID [facility] Last Admin: 04/09/22 11:06 Dose: Not Given Senna (Sennosides 1 Tablet) 2 tab PO HSP PRN PRN Reason: Constipation Sodium Chloride (0.9 % Sodium Chloride 10 Ml Syringe) 10 ml IV Q8 [facility] Last Admin: 04/09/22 14:21 Dose: Not Given A/P Narrative A/P Narrative: Assessment: 56 year old male with a history of hypertension, COPD, GERD, tobacco use disorder, alcohol use disorder admitted for moderate to severe acute pancreatitis likely secondary to alcohol. CT abdomen pelvis with contrast showed severe acute interstitial pancreatitis as well as moderate gallbladder enlargement and wall enhancement and pericholecystic fluid, no gallstones identified on CT scan. #Moderately severe acute pancreatitis likely secondary to alcohol #Concern for acalculous cholecystitis #Dilated common bile duct #Resolved acute kidney injury secondary to acute pancreatitis #Thrombocytopenia #Hyponatremia #Severe alcohol use disorder #Severe tobacco use disorder #COPD #Hypertension #GERD Plan -IV fluid, monitor urine output and volume status. -Analgesics as needed. -Ceftriaxone and metronidazole IV for possible acalculous cholecystitis. -General surgery consulted for possible acalculous cholecystitis. -GI consulted for dilated common bile duct occurring in the setting of acute pancreatitis. -MRCP ordered. -Monitor CBC, inpatient panel. -Replace electrolytes as needed. -Continue home losartan, Prilosec, Lyrica. -Nicotine replacement. -Monitor for alcohol withdrawal with CIWA scores. -Thiamine and folic acid supplementation. -Clear liquid diet. -DVT prophylaxis: Lovenox -CODE STATUS: Scale Manager Spent With Patient Time: Total time spent is greater than 50% in coordination of care (as documented) at patient's floor/unit and/or counseling patient: QUALITY VTE Deep Vein Thrombosis/Pulmonary Embolism Present on Admission: No
--- NOTE | 2022-04-09 16:13 | Magnetic Resonance Report ---
CLINICAL INFORMATION: Interstitial pancreatitis. Gallbladder enlargement with wall thickening possible associated cholecystitis. Also common bile and pancreatic duct dilatation. Evaluate for choledocholithiasis COMPARISON: Abdomen and pelvic CT 04/08/2022. TECHNIQUE: MRCP was performed using 3D FRFSE respiratory triggered and single-shot FSE thick slab technique. Axial T2 SSFSE and coronal SSFSE images were obtained through the upper abdomen as well. FINDINGS: Gallbladder is mildly enlarged with wall thickening and pericholecystic fluid. There are no stones within the gallbladder. Intrahepatic, common hepatic common bile ducts are mildly dilated colon CBD is 8 mm. No stones identified within the common bile duct. Pancreatic duct is only slightly dilated 3 mm. There is increased T2 signal throughout the pancreas compatible with acute interstitial pancreatitis. Moderate edema and peripancreatic fat planes Liver is normal in size and signal intensity. There is an 8 mm simple cyst superior right hepatic lobe. Both adrenal glands, spleen and aorta unremarkable. Leak Left diaphragm mildly elevated. Tiny bilateral pleural effusions noted IMPRESSION: 1. Mild dilatation of the intrahepatic, common hepatic and common bile ducts. No evidence, however, for choledocholithiasis. 2. Acute interstitial pancreatitis. Pancreatic duct is only slightly dilated proximally 3. Mild gallbladder enlargement with diffuse wall thickening. Patient could have as coexistent acalculous cholecystitis. Interpreted and Authenticated by: Moo Woods 04/09/22
--- NOTE | 2022-04-09 16:48 | General Surgery Consult Note ---
HPI Data of Consult Consult date: 04/09/22 Requesting physician: Odin Westbrook Primary Care Provider: JASPREET Wall Consult Narrative Patient Information: Note initiated : 04/09/22 at 4:46 pm Service Date, if different from initiated Date: [] Patient: Artie Zavala 56 y/o M admitted on 04/08/22 for ABD pain. Chief Complaint: [] Reason for consult: Abdominal pain, pancreatitis, dilated biliary ducts without stones cc:: CC: Odin Westbrook MD 56-year-old male with a long history of chronic alcohol abuse who developed acute onset of severe upper abdominal pain in the midepigastrium on yesterday. This was followed by nausea and vomiting. A few hours later he presented to the emergency room complaining of abdominal pain. Labs reveaed White blood count 8.6, hemoglobin 11.5, hematocrit 33.2, AST 285, ALT 19, alkaline phos 169. Lipase was 1750. CT of the abdomen showed dilated gallbladder with mild wall thickening and pericholecystic fluid but no stones. Common bile duct was also felt to be dilated. Upper abdominal ultrasound showed mild thickening of the gallbladder wall without stones but with dilated ducts. MRCP which was just completed shows no evidence of filling defect in the common bile duct to the common bile duct is dilated. Patient's white blood count increased today to 19,300. Lipase was not repeated today. At the present time the patient complains of diffuse pain in his upper abdomen more prominent on the left and midline than on the right. He also has some mid abdominal pain. Constitutional Constitutional: Present lethargy, malaise and weakness EENT Ears: Absent tinnitus Nose, mouth and throat: Absent dysphagia or hoarseness Cardiovascular Cardiovascular: Present dyspnea, dyspnea on exertion and rapid heart rate; Absent palpatations or pedal edema Respiratory Respiratory: Present cough and dyspnea on exertion Gastrointestinal Gastrointestinal: Present abdominal pain, heartburn, nausea and vomiting Genitourinary Genitourinary: urinary frequency, urinary hesitancy and urinary incontinence Musculoskeletal Musculoskeletal: Present arthralgias, muscle cramps and myalgias; Absent abnormal gait Integumentary Integumentary: Present changing lesions, new lesions, rash, sores and unusual bruising; Absent jaundice Neurological Neurological: Present weakness; Absent abnormal gait, behavioral changes, convulsions, restless legs, syncope or vertigo Psychiatric Psychiatric: Absent mood swings Endocrine Endocrine: Absent palpitations Hematologic/Lymphatic Hematologic/Lymphatic: Absent easy bleeding, easy bruising or lymphadenopathy Allergic/Immunologic Allergic/Immunologic: Absent tongue swelling, uticaria or wheezing PFSH PFSH All Active Problems Chronic alcoholism (Acute) Acute pancreatitis (Acute) Chronic back pain (Acute) Strain of left hip (Acute) Duodenitis (Acute) Increased serum lipase level (Acute) H. pylori infection (Acute) C. difficile colitis (Acute) Colitis (Acute) Upper GI hemorrhage (Chronic) Hypertension (Chronic) Back pain (Chronic) Pain in joint, multiple sites (Chronic) Neutrophilia (Chronic) Screening for malignant neoplasm of colon (Chronic) Screening for malignant neoplasm of prostate (Chronic) Tobacco dependence (Chronic) Alcohol dependence (Chronic) Chronic bronchitis (Chronic) Hypertension (Chronic) GERD (gastroesophageal reflux disease) (Chronic) Anxiety (Chronic) Arthritis (Chronic) Muscle pain (Chronic) Daytime sleepiness (Chronic) Heart problem (Chronic) History of arthroplasty of right ankle (Chronic ~2015) Cellulitis of foot (Chronic) Urticaria (Chronic) COPD (chronic obstructive pulmonary disease) (Chronic) Bilateral lower extremity edema (Chronic) Eczema (Chronic) Claudication of both lower extremities (Chronic) Stasis dermatitis (Chronic) Prostatitis (Chronic) Difficulty urinating (Chronic) Dizziness (Chronic) Syncope (Chronic) Pneumonia (Chronic) Hypotension (Chronic) Tooth abscess (Chronic) Dysphagia (Chronic) Hypokalemia (Chronic) Ascending aorta enlargement (Chronic) Aortic root enlargement (Chronic) Low back pain (Chronic) Chronic pain (Chronic) Tobacco use (Chronic) Chronic alcohol use (Chronic) prison (current) use of opiate analgesic (Chronic) Spondylosis without myelopathy or radiculopathy, lumbar region (Acute) Spondylosis without myelopathy or radiculopathy, lumbosacral region (Acute) Decreased renal function (Acute) Blurred vision, bilateral (Acute) Alteration in vision (Acute) History of Helicobacter pylori infection (Acute) Episode of gagging (Acute) Nausea & vomiting (Acute) Low folate (Acute) Iron deficiency anemia (Acute) Resistant hypertension (Chronic) Excessive chloride salt intake (Chronic) Hyponatremia (Chronic) Alcohol abuse (Acute) Medical History Alcohol dependence Anxiety Arthritis Back pain Chronic alcohol use Chronic bronchitis Chronic pain Daytime sleepiness GERD (gastroesophageal reflux disease) Heart problem Hypertension Iron deficiency anemia prison (current) use of opiate analgesic for nonmalignant pain Low back pain Low folate Muscle pain Neutrophilia Pain in joint, multiple sites Screening for malignant neoplasm of colon Screening for malignant neoplasm of prostate Tobacco dependence Tobacco use Surgical History History of arthroplasty of right ankle (~2015) due to fracture Family History Family/Other Cancer Hypertension Mother Hypertension Arthritis Father Arthritis Hypertension Sister Arthritis Chronic pain Social History marital status: physical activity: none smoking status: Current every day smoker tobacco type: cigarettes per day: 1 smoking status start date: 07/26/81 alcohol intake frequency: 2+ drinks per day substance use type: does not use seatbelt use: always MEDS/ALLERGIES Home Medications and Allergies Home Medications Medication Instructions Recorded Confirmed Type oxygen 2 L as needed See Rx Instructions .Route .COMPLEX 08/13/20 03/19/22 History melatonin 5 mg tablet 5 mg PO .COMPLEX PRN sleep #60 tabs 08/23/20 03/19/22 Rx omeprazole 20 mg capsule,delayed 20 mg PO QAM 12/03/20 04/09/22 History release fluticasone 250 mcg-salmeterol 50 1 inh inhalation BID #60 ea 03/13/21 04/09/22 Rx mcg/dose blistr powdr for inhalation (Advair Diskus) losartan 100 mg tablet 100 mg PO QDAY 05/27/21 04/09/22 History albuterol sulfate 90 mcg/actuation 2 puff inhalation .Q4-6H PRN 09/30/21 Rx aerosol inhaler (Ventolin HFA) wheezing and/or shortness of breath #18 grams folic acid 1 mg tablet 1 mg PO QDAY #90 tabs 11/19/21 03/19/22 Rx ferrous sulfate 325 mg (65 mg 325 mg PO BID #60 tabs 12/17/21 04/09/22 Rx iron) tablet pregabalin 75 mg capsule (Lyrica) 75 mg PO BID #60 caps 12/17/21 04/09/22 Rx tamsulosin 0.4 mg capsule 0.4 mg PO QDAY PRN 01/07/22 03/19/22 History hydrocodone 7.5 mg-acetaminophen 1 tab PO .COMPLEX PRN pain #120 04/07/22 04/09/22 Rx 325 mg tablet tabs Allergies Allergy/AdvReac Type Severity Reaction Status Date / Time amlodipine AdvReac Mild Itching Verified 04/08/22 22:01 Terazosin AdvReac Mild Itching Verified 04/08/22 22:01 Physical Examination Vital Signs Vital signs: Temp Pulse Resp BP Pulse Ox O2 Del Method O2 Flow Rate 98.3 F 94 H 19 157/109 95 2 04/09/22 08:33 04/09/22 08:33 04/09/22 13:25 04/09/22 10:01 04/09/22 08:33 04/09/22 00:00 04/09/22 00:00 General physical appearance General physical exam: well developed, well nourished, no distress and moderate pain Eyes Eye exam: PERRL and normal ocular movement; negative icteric ENT ENT exam: normal mucosa Head Head exam IM: Present atraumatic, normal inspection and normocephalic Neck Neck exam: no masses, no bruits, trachea midline, no lymphadenopathy and no venous distension Abdomen Abdomen: Present tender (Tenderness in epigastrium and bilateral upper quadrants; worse on left than right) Integumentary Integumentary: Present no rash, no growths and other (Scattered abrasions and old lacerations) Neurologic Neurologic: Present normal coordination and normal sensation Musculoskeletal Musculoskeletal: Present normal gait and normal posture Psychiatric Psychiatric: Present oriented to time, oriented to person, oriented to place, speech is normal and memory intact Results Labs Result diagrams: 04/09/22 05:26 04/09/22 05:26 Labs: Abnormal lab results 04/08/22 04/08/22 04/08/22 Range/Units 16:47 16:47 16:50 WBC (4.5-11.0) K/mcL RBC 3.37 L (4.63-6.08) M/mcL Hgb 11.5 L (13.7-17.5) g/dL Hct 33.2 L (40.1-51.0) % POC Hct (41-55) MCV (80.0-100.0) fL MCH 34.1 H (26.0-34.0) pg Plt Count (140-440) K/mcL MPV 11.9 H (7.4-10.4) fL Neut % (Auto) (38.0-78.0) % Lymph % (Auto) (15.5-49.0) % Lymph # (Auto) (1.50-4.80) K/mcL Immature Gran # (0.00-0.05) K/mcl Absolute Neutrophils (1.80-8.00) K/mcL POC VBG pH 7.44 H (7.32-7.42) POC VBG pCO2 at Temp 27.3 L (41-51) POC VBG HCO3 18.3 L (24-28) POC VBG Total CO2 19.0 L (25-29) POC VBG Base Excess -6.0 L (-2-2) VBG Lactic Acid 5.2 H* (0.5-2) Sodium (133-145) mmol/L Carbon Dioxide (22-30) mmol/L POC Total CO2 (22-30) POC Creatinine (0.6-1.2) Calcium (8.6-10.4) mg/dL POC WB Ioniz Calcium (1.16-1.32) Magnesium (1.6-2.5) mg/dL Direct Bilirubin (<0.3) mg/dL GGT (8-61) U/L AST 287 H (<40) U/L Alkaline Phosphatase 169 H (39-117) U/L Lactate Dehydrogenase (135-225) U/L Total Protein (5.9-8.4) gm/dL Lipase 1755 H (7-60) U/L POC Troponin I (0.02-0.08) 04/08/22 04/08/22 04/08/22 Range/Units 16:54 16:56 22:24 WBC (4.5-11.0) K/mcL RBC (4.63-6.08) M/mcL Hgb (13.7-17.5) g/dL Hct (40.1-51.0) % POC Hct 38.0 L (41-55) MCV (80.0-100.0) fL MCH (26.0-34.0) pg Plt Count (140-440) K/mcL MPV (7.4-10.4) fL Neut % (Auto) (38.0-78.0) % Lymph % (Auto) (15.5-49.0) % Lymph # (Auto) (1.50-4.80) K/mcL Immature Gran # (0.00-0.05) K/mcl Absolute Neutrophils (1.80-8.00) K/mcL POC VBG pH (7.32-7.42) POC VBG pCO2 at Temp (41-51) POC VBG HCO3 (24-28) POC VBG Total CO2 (25-29) POC VBG Base Excess (-2-2) VBG Lactic Acid 3.3 H (0.5-2) Sodium (133-145) mmol/L Carbon Dioxide (22-30) mmol/L POC Total CO2 19.0 L (22-30) POC Creatinine 1.5 H (0.6-1.2) Calcium (8.6-10.4) mg/dL POC WB Ioniz Calcium 1.04 L (1.16-1.32) Magnesium (1.6-2.5) mg/dL Direct Bilirubin (<0.3) mg/dL GGT (8-61) U/L AST (<40) U/L Alkaline Phosphatase (39-117) U/L Lactate Dehydrogenase (135-225) U/L Total Protein (5.9-8.4) gm/dL Lipase (7-60) U/L POC Troponin I 0.01 L (0.02-0.08) 04/09/22 04/09/22 Range/Units 05:26 05:26 WBC 19.3 H (4.5-11.0) K/mcL RBC 3.23 L (4.63-6.08) M/mcL Hgb 11.4 L (13.7-17.5) g/dL Hct 32.9 L (40.1-51.0) % POC Hct (41-55) MCV 101.9 H (80.0-100.0) fL MCH 35.3 H (26.0-34.0) pg Plt Count 123 L (140-440) K/mcL MPV 12.2 H (7.4-10.4) fL Neut % (Auto) 94.3 H (38.0-78.0) % Lymph % (Auto) 1.7 L (15.5-49.0) % Lymph # (Auto) 0.33 L (1.50-4.80) K/mcL Immature Gran # 0.08 H (0.00-0.05) K/mcl Absolute Neutrophils 18.16 H (1.80-8.00) K/mcL POC VBG pH (7.32-7.42) POC VBG pCO2 at Temp (41-51) POC VBG HCO3 (24-28) POC VBG Total CO2 (25-29) POC VBG Base Excess (-2-2) VBG Lactic Acid (0.5-2) Sodium 129 L (133-145) mmol/L Carbon Dioxide 19 L (22-30) mmol/L POC Total CO2 (22-30) POC Creatinine (0.6-1.2) Calcium 7.8 L (8.6-10.4) mg/dL POC WB Ioniz Calcium (1.16-1.32) Magnesium 1.3 L (1.6-2.5) mg/dL Direct Bilirubin 0.3 H (<0.3) mg/dL GGT 599 H (8-61) U/L AST 213 H (<40) U/L Alkaline Phosphatase 280 H (39-117) U/L Lactate Dehydrogenase 309 H (135-225) U/L Total Protein 5.8 L (5.9-8.4) gm/dL Lipase (7-60) U/L POC Troponin I (0.02-0.08) Diabetes panel 04/08/22 04/09/22 Range/Units 16:47 05:26 Sodium 129 L (133-145) mmol/L Potassium 4.0 (3.3-5.1) mmol/L Chloride 98 (96-108) mmol/L Carbon Dioxide 19 L (22-30) mmol/L BUN 9 (6-20) mg/dL Creatinine 0.9 (0.7-1.2) mg/dL Glucose 84 (70-105) mg/dL Calcium 7.8 L (8.6-10.4) mg/dL AST 287 H 213 H (<40) U/L ALT 19 34 (<40) U/L Alkaline Phosphatase 169 H 280 H (39-117) U/L Total Protein 6.3 5.8 L (5.9-8.4) gm/dL Albumin 3.8 3.2 (3.2-5.2) gm/dL Triglycerides 89 (<150) mg/dL Calcium panel 04/08/22 04/09/22 Range/Units 16:47 05:26 Calcium 7.8 L (8.6-10.4) mg/dL Phosphorus 3.2 (2.5-4.5) mg/dL Albumin 3.8 3.2 (3.2-5.2) gm/dL Pituitary panel 04/09/22 Range/Units 05:26 Sodium 129 L (133-145) mmol/L Potassium 4.0 (3.3-5.1) mmol/L Chloride 98 (96-108) mmol/L Carbon Dioxide 19 L (22-30) mmol/L BUN 9 (6-20) mg/dL Creatinine 0.9 (0.7-1.2) mg/dL Glucose 84 (70-105) mg/dL Calcium 7.8 L (8.6-10.4) mg/dL Adrenal panel 04/08/22 04/09/22 Range/Units 16:47 05:26 Sodium 129 L (133-145) mmol/L Potassium 4.0 (3.3-5.1) mmol/L Chloride 98 (96-108) mmol/L Carbon Dioxide 19 L (22-30) mmol/L BUN 9 (6-20) mg/dL Creatinine 0.9 (0.7-1.2) mg/dL Glucose 84 (70-105) mg/dL Calcium 7.8 L (8.6-10.4) mg/dL Total Bilirubin 0.6 0.7 (0.1-1.0) mg/dL AST 287 H 213 H (<40) U/L ALT 19 34 (<40) U/L Alkaline Phosphatase 169 H 280 H (39-117) U/L Total Protein 6.3 5.8 L (5.9-8.4) gm/dL Albumin 3.8 3.2 (3.2-5.2) gm/dL All other labs normal. A/P Assessment and plan (1) Acute pancreatitis: Status: Acute (2) Chronic alcoholism: Status: Acute (3) Hypertension: Status: Chronic Qualifiers: Hypertension type: essential hypertension Qualified Code(s): I10 - Essential (primary) hypertension (4) GERD (gastroesophageal reflux disease): Status: Chronic Qualifiers: Esophagitis presence: esophagitis presence not specified Qualified Code(s): K21.9 - Gastro-esophageal reflux disease without esophagitis (5) COPD (chronic obstructive pulmonary disease): Status: Chronic Qualifiers: COPD type: emphysema Emphysema type: unspecified Qualified Code(s): J43.9 - Emphysema, unspecified (6) Tobacco use: Status: Chronic Plan Presently the patient does not have any findings that would support acute chol ecystitis. With the extra edema from the pancreatitis it is not unusual for the gallbladder to have mild swelling of the gallbladder. She has significant fluid in the lesser sac and paraduodenal area from the pancreatitis. I will follow the patient closely just in case symptoms ofl acalculus cholecystitis should develop.. Time Spent With Patient Time: Total time spent is greater than 50% in coordination of care (as documented) at patient's floor/unit and/or counseling patient:
[2022-04-09] MEDS: LABETALOL 5 MG/ML ML IV PRN (17:04)
[2022-04-09] MEDS: HYDROmorphone 0.5 MG/0.5 ML SYRINGE IV PRN (18:52)
[2022-04-09] MEDS: HYDROcodone/APAP 5/325MG TABLET PO PRN (18:53)
[2022-04-09] MEDS: PREGABALIN 75 MG CAPSULE PO SCH (21:39)
[2022-04-10] MEDS: 0.9 % SODIUM CHLORIDE 1,000 ML IV SCH ×5 (03:36→20:30)
[2022-04-10] MEDS: metroNIDAZOLE 500 MG/100 ML BAG IV SCH (05:27)
[2022-04-10] MEDS: 0.9 % SODIUM CHLORIDE 10 ML SYRINGE IV SCH ×2 (05:27→14:10)
[2022-04-10] MEDS: HYDROmorphone 0.5 MG/0.5 ML SYRINGE IV PRN ×3 (06:46→18:08)
[2022-04-10 07:08] LABS: ALT/SGPT 17 U/L (<40); AST/SGOT 60 U/L (<40); Albumin 2.3 gm/dL (3.2-5.2); Albumin/Globulin Ratio 0.9 (1.0-2.3); Alkaline Phosphatase 194 U/L (39-117); Bilirubin,Direct < 0.2 mg/dL (0-0.3); Bilirubin,Total 0.3 mg/dL (0.1-1.0); Blood Urea Nitrogen 6 mg/dL (6-20); Calcium 7.3 mg/dL (8.6-10.4); Carbon Dioxide 19 mmol/L (22-30); Chloride 103 mmol/L (96-108); Globulin 2.6 gm/dL (2.2-3.7); Glomerular Filtration Rate 99; Glucose 78 mg/dL (70-105); Lactate Dehydrogenase 245 U/L (135-225); Phosphorous 2.3 mg/dL (2.5-4.5); Triglycerides 76 mg/dL (<150); Uric Acid 3.8 mg/dL (2.5-8.0)
[2022-04-10] MEDS: PREGABALIN 75 MG CAPSULE PO SCH ×2 (08:29→20:29)
[2022-04-10] MEDS: OMEPRAZOLE 20 MG CAPSULE PO SCH (08:29)
[2022-04-10] MEDS: ENOXAPARIN 40 MG/0.4 ML SYRINGE SQ SCH (08:29)
[2022-04-10] MEDS: FOLIC ACID 1 MG TABLET PO SCH (08:29)
[2022-04-10] MEDS: LOSARTAN 50 MG TABLET PO SCH (08:29)
[2022-04-10] MEDS: cefTRIAXone 2 GM in DEXTROSE 5% IN WATER 50 ML IV SCH (08:29)
[2022-04-10 08:54] LABS: Basophils # (Auto) 0.02 K/mcL (0.00-0.30); Basophils % (Auto) 0.2 % (0.0-2.0); Eosinophils # (Auto) 0.05 K/mcL (0.00-0.70); Eosinophils % (Auto) 0.4 % (0.0-7.0); Hematocrit 29.9 % (40.1-51.0); Hemoglobin 9.7 g/dL (13.7-17.5); Lymphocytes # (Auto) 0.64 K/mcL (1.50-4.80); Mean Cell Volume 103.8 fL (80.0-100.0); Mean Corpuscular HGB Conc 32.4 g/dL (31.0-36.0); Mean Platelet Volume 12.4 fL (7.4-10.4); Monocytes # (Auto) 0.65 K/mcL (0.10-0.90); Monocytes % (Auto) 5.1 % (1.0-12.0); Neutrophils % (Auto) 88.8 % (38.0-78.0); Platelet Count 81 K/mcL (140-440); RBC 2.88 M/mcL (4.63-6.08); Red Cell Distribution Width 13.7 % (11.5-14.5); WBC 12.8 K/mcL (4.5-11.0)
[2022-04-10] MEDS: THIAMINE 100 MG in 0.9 % SODIUM CHLORIDE 50 ML IV SCH (09:47)
[2022-04-10] MEDS: HYDROcodone/APAP 5/325MG TABLET PO PRN ×3 (09:47→20:29)
[2022-04-10] MEDS: NICOTINE 21 MG PATCH TOPICAL SCH (09:47)
[2022-04-10] MEDS: FLUTICASONE/SALMETEROL 250/50 INHALER #14 INH SCH (09:48)
[2022-04-10] MEDS ORDERED: POTASSIUM CHLORIDE 20 MEQ in DEXTROSE 5% IN WATER 250 ML IV ONE (12:18)
[2022-04-10] MEDS ORDERED: MAGNESIUM SULFATE 8.12 MEQ in DEXTROSE 5% IN WATER 50 ML IV ONE (12:18)
--- NOTE | 2022-04-10 13:29 | Internal Med Progress Note ---
SUBJECTIVE Subjective Patient information: Note initiated : 04/10/22 at 1:25 pm Service Date, if different from initiated Date: [] Patient: Artie Zavala 56 y/o M admitted on 04/08/22 for ABD pain. Chief Complaint: [] Interval history: Mr. Zavala is a 56 year old male with a history of hypertension, COPD, GERD, tobacco use disorder, alcohol use disorder who presented to the emergency department for abdominal pain and found to have acute pancreatitis. CT abdomen pelvis with contrast showed severe acute interstitial pancreatitis with no rowan dence of necrosis pseudocyst or other complication. The CT scan also showed moderate gallbladder enlargement with gallbladder wall enhancement and pericholecystic fluid, no gallstones identified. The patient drinks of substantial amount of alcohol daily and has had episodes of acute pancreatitis b efore. Laboratory work-up in the ED shows the patient also has an acute kidney injury, elevated lactic acid, hypocalcemia, elevated AST with normal ALT consistent with alcoholic hepatitis. Lipase level was 1755. 04/09 Patient had a high-grade temp overnight, leukocytosis noted from a morning labs. Acute kidney injury resolved with IV fluid. Lactic acid downtrending. Right upper quadrant ultrasound showed a moderately enlarged gallbladder with diffuse wall thickening, no stones identified. There is also moderate dilation of the common bile duct, no stone identified within the duct. Started empiric ceftriaxone and metronidazole IV for possible acalculous cholecystitis. MRCP ordered, GI and surgery consulted. Continue clear liquid diet for now. 04/10 Vital stable overnight, the patient feels better overall. General surgery did not feel the patient has acute cholecystitis. Empiric antibiotics discontinued. IV fluid rate decreased. Diet advanced. Physical exam Head: Atraumatic, normal inspection. Eyes: normal appearance, no scleral icterus. Neck: full ROM Respiratory: no respiratory distress. Cardiovascular: normal rate and rhythm, S1, S2. GI/Abdominal: Decreased abdominal tenderness, no guarding. Extremities: full range of motion, nontender. Neurological: CN II-XII intact, intact motor, intact sensation. Psychiatric: normal mood. Skin: warm, normal color Constitutional Vitals: Vital Signs Temp Pulse Resp BP Pulse Ox O2 Del Method O2 Flow Rate 98.3 F 79 17 152/99 100 2 04/10/22 12:04/10/22 12:04/10/22 12:04/10/22 12:01 04/10/22 12:01 04/10/22 00:00 04/09/22 00:00 Period Temp Pulse Resp BP Sys/Mata Pulse Ox O2 Del Method O2 Flow Rate Last 24 Hr 98.3 F-100.1 F 79-106 14-21 126-169/87-113 90-100 Room Air- Room Air Intake and Output 04/09/22 04/10/22 04/10/22 21:59 05:59 13:59 Intake Total 1650 2500 2021 Output Total 800 1325 1225 Balance 850 1175 797 Weight 66.088 kg Intake & Output: Intake & Output 04/09/22 04/10/22 04/10/22 21:59 05:59 13:59 Intake Total 1650 2500 2021 Output Total 800 1325 1225 Balance 850 1175 797 Weight 66.088 kg Intake: IV 1150 2100 2021 Sodium Chloride 0.9% 1,000 ml @ 1000 2000 1821 250 mls/hr IV .Q4H [facility] Rx#: [id number] Vitamin B1 100 mg In Sodium 51 Chloride 0.9% 50 ml @ 50 mls/hr IV DAILY [facility] Rx#:[id number] Rocephin 2 gm In Dextrose 5% in 50 50 Water 50 ml @ 100 mls/hr IV Q24H [facility] Rx#:[id number] Oral 500 400 Output: Void Amount 800 1025 525 Urine/Stool Mix 700 Stool 300 Other: Meal Dinner Percent of Meal Consumed 0% Urine Appearance Clear Clear Clear Urine Color Yellow Pale Yellow Urine Odor Normal Normal Stool Size Large Stool Color Green Stool Consistency Liquid # Bowel Movements 1 OBJ DATA Labs CBC & Chem 7: 04/10/22 05:36 04/10/22 05:36 Labs: Abnormal Lab Results 04/10/22 04/10/22 04/10/22 05:36 05:36 05:36 WBC 12.8 H RBC 2.88 L Hgb 9.7 L Hct 29.9 L POC Hct MCV 103.8 H MCH Plt Count 81 L MPV 12.4 H Neut % (Auto) 88.8 H Lymph % (Auto) 5.0 L Lymph # (Auto) 0.64 L Immature Gran # 0.07 H Absolute Neutrophils 11.37 H POC VBG pH POC VBG pCO2 at Temp POC VBG HCO3 POC VBG Total CO2 POC VBG Base Excess VBG Lactic Acid Sodium Carbon Dioxide 19 L POC Total CO2 POC Creatinine Calcium 7.3 L POC WB Ioniz Calcium Phosphorus 2.3 L Magnesium Direct Bilirubin GGT 402 H AST 60 H Alkaline Phosphatase 194 H Lactate Dehydrogenase 245 H C-Reactive Protein 15.30 H Total Protein 4.9 L Albumin 2.3 L Albumin/Globulin Ratio 0.9 L Lipase 160 H POC Troponin I 04/09/22 04/09/22 04/08/22 05:26 05:26 22:24 WBC 19.3 H RBC 3.23 L Hgb 11.4 L Hct 32.9 L POC Hct MCV 101.9 H MCH 35.3 H Plt Count 123 L MPV 12.2 H Neut % (Auto) 94.3 H Lymph % (Auto) 1.7 L Lymph # (Auto) 0.33 L Immature Gran # 0.08 H Absolute Neutrophils 18.16 H POC VBG pH POC VBG pCO2 at Temp POC VBG HCO3 POC VBG Total CO2 POC VBG Base Excess VBG Lactic Acid 3.3 H Sodium 129 L Carbon Dioxide 19 L POC Total CO2 POC Creatinine Calcium 7.8 L POC WB Ioniz Calcium Phosphorus Magnesium 1.3 L Direct Bilirubin 0.3 H GGT 599 H AST 213 H Alkaline Phosphatase 280 H Lactate Dehydrogenase 309 H C-Reactive Protein Total Protein 5.8 L Albumin Albumin/Globulin Ratio Lipase POC Troponin I 04/08/22 04/08/22 04/08/22 16:56 16:54 16:50 WBC RBC Hgb Hct POC Hct 38.0 L MCV MCH Plt Count MPV Neut % (Auto) Lymph % (Auto) Lymph # (Auto) Immature Gran # Absolute Neutrophils POC VBG pH 7.44 H POC VBG pCO2 at Temp 27.3 L POC VBG HCO3 18.3 L POC VBG Total CO2 19.0 L POC VBG Base Excess -6.0 L VBG Lactic Acid 5.2 H* Sodium Carbon Dioxide POC Total CO2 19.0 L POC Creatinine 1.5 H Calcium POC WB Ioniz Calcium 1.04 L Phosphorus Magnesium Direct Bilirubin GGT AST Alkaline Phosphatase Lactate Dehydrogenase C-Reactive Protein Total Protein Albumin Albumin/Globulin Ratio Lipase POC Troponin I 0.01 L 04/08/22 04/08/22 16:47 16:47 WBC RBC 3.37 L Hgb 11.5 L Hct 33.2 L POC Hct MCV MCH 34.1 H Plt Count MPV 11.9 H Neut % (Auto) Lymph % (Auto) Lymph # (Auto) Immature Gran # Absolute Neutrophils POC VBG pH POC VBG pCO2 at Temp POC VBG HCO3 POC VBG Total CO2 POC VBG Base Excess VBG Lactic Acid Sodium Carbon Dioxide POC Total CO2 POC Creatinine Calcium POC WB Ioniz Calcium Phosphorus Magnesium Direct Bilirubin GGT AST 287 H Alkaline Phosphatase 169 H Lactate Dehydrogenase C-Reactive Protein Total Protein Albumin Albumin/Globulin Ratio Lipase 1755 H POC Troponin I Meds: Medications Acetaminophen (Acetaminophen 325 Mg Tablet) 650 mg PO Q6HP PRN; Protocol PRN Reason: Per Pain Protocol/Fever > 101 Hydrocodone Bitart/Acetaminophen (Hydrocodone/Apap 5/325mg Tablet) 1 tab PO Q4HP PRN; Protocol PRN Reason: Per Pain Protocol Last Admin: 04/10/22 09:47 Dose: 1 tab Albuterol Sulfate (Albuterol Sulfate 200 Puff Inhaler) 2 puff INH Q4-6HP PRN PRN Reason: wheezing and/or shortness of breath Enoxaparin Sodium (Enoxaparin 40 Mg/0.4 Ml Syringe) 40 mg SQ DAILY [facility] Last Admin: 04/10/22 08:29 Dose: 40 mg Folic Acid (Folic Acid 1 Mg Tablet) 1 mg PO DAILY [facility] Last Admin: 04/10/22 08:29 Dose: 1 mg Hydromorphone HCl (Hydromorphone 0.5 Mg/0.5 Ml Syringe) 0.5 - 1 mg IV Q2HP PRN; Protocol PRN Reason: Per Pain Protocol Last Admin: 04/10/22 11:16 Dose: 0.5 mg Thiamine HCl 100 mg/ Sodium (Chloride) 51 mls @ 50 mls/hr IV DAILY [facility] Stop: 04/11/22 10:02 Last Infusion: 04/10/22 10:49 Dose: Infused Potassium Chloride 20 meq/ (Dextrose) 260 mls @ 130 mls/hr IV ONCE ONE Stop: 04/10/22 14:17 Sodium Chloride (Sodium Chloride 0.9%) 1,000 mls @ 75 mls/hr IV .[id number] [facility] Labetalol HCl (Labetalol 5 Mg/Ml Ml) 10 mg IV Q2HP PRN PRN Reason: hypertension Last Admin: 04/09/22 17:04 Dose: 10 mg Lactulose (Lactulose 20 Gm/30 Ml Oral.Sarah) 10 gm PO DAILYP PRN PRN Reason: Constipation Lorazepam (Lorazepam 2 Mg/Ml Vial) 1 mg IV Q1HP PRN PRN Reason: ANXIETY/SEDATION Last Admin: 04/09/22 22:44 Dose: 1 mg Losartan Potassium (Losartan 50 Mg Tablet) 100 mg PO DAILY [facility] Last Admin: 04/10/22 08:29 Dose: 100 mg Nicotine (Nicotine 21 Mg Patch) 21 mg TOPICAL DAILY@1000 [facility] Last Admin: 04/10/22 09:47 Dose: 21 mg Nicotine Polacrilex (Nicotine Polacrilex 2 Mg Gum) 2 mg CHEW/PARK Q4HP PRN PRN Reason: Nicotine Cravings Last Admin: 04/09/22 16:41 Dose: 2 mg Omeprazole (Omeprazole 20 Mg Capsule) 20 mg PO QAM [facility] Last Admin: 04/10/22 08:29 Dose: 20 mg Ondansetron HCl (Ondansetron 4 Mg/2 Ml Vial) 4 mg IV Q4HP PRN; Protocol PRN Reason: Nausea And Vomiting Last Admin: 04/08/22 23:48 Dose: 4 mg Oxycodone/Acetaminophen (Oxycodone/Apap 5/325mg Tablet) 1 tab PO Q4HP PRN; Protocol PRN Reason: Per Pain Protocol Pregabalin (Pregabalin 75 Mg Capsule) 75 mg PO BID [facility] Last Admin: 04/10/22 08:29 Dose: 75 mg Fluticasone/Salmeterol (Fluticasone/Salmeterol 250/50 Inhaler #14) 1 puff INH BID [facility] Last Admin: 04/10/22 09:48 Dose: Not Given Senna (Sennosides 1 Tablet) 2 tab PO HSP PRN PRN Reason: Constipation Sodium Chloride (0.9 % Sodium Chloride 10 Ml Syringe) 10 ml IV Q8 [facility] Last Admin: 04/10/22 05:27 Dose: Not Given A/P Narrative A/P Narrative: Assessment: 56 year old male with a history of hypertension, COPD, GERD, tobacco use disorder, alcohol use disorder admitted for moderate to severe acute pancreatitis likely secondary to alcohol. CT abdomen pelvis with contrast showed severe acute interstitial pancreatitis as well as moderate gallbladder enlargement and wall enhancement and pericholecystic fluid, no gallstones identified on CT scan. #Moderately severe acute pancreatitis likely secondary to alcohol #Resolved acute kidney injury secondary to acute pancreatitis #Thrombocytopenia #Anemia, likely dilutional #Severe alcohol use disorder #Severe tobacco use disorder #COPD #Hypertension #GERD Plan -IV fluid, monitor urine output and volume status. -Analgesics as needed. -Discontinue ceftriaxone and metronidazole IV. -General surgery consulted for possible acalculous cholecystitis. -Monitor CBC, inpatient panel. -Replace electrolytes as needed. -Continue home losartan, Prilosec, Lyrica. -Nicotine replacement. -Monitor for alcohol withdrawal with CIWA scores. -Thiamine and folic acid supplementation. 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
[2022-04-10] MEDS: LABETALOL 5 MG/ML ML IV PRN ×2 (14:14→16:49)
[2022-04-11] MEDS: 0.9 % SODIUM CHLORIDE 10 ML SYRINGE IV SCH ×4 (00:22→21:08)
[2022-04-11] MEDS: FLUTICASONE/SALMETEROL 250/50 INHALER #14 INH SCH ×3 (00:22→20:37)
[2022-04-11] MEDS: LABETALOL 5 MG/ML ML IV PRN ×3 (03:27→21:39)
[2022-04-11 07:27] LABS: ALT/SGPT 13 U/L (<40); AST/SGOT 31 U/L (<40); Albumin 2.9 gm/dL (3.2-5.2); Alkaline Phosphatase 174 U/L (39-117); Bilirubin,Direct < 0.2 mg/dL (0-0.3); Bilirubin,Total 0.4 mg/dL (0.1-1.0); Blood Urea Nitrogen 4 mg/dL (6-20); Carbon Dioxide 20 mmol/L (22-30); Chloride 102 mmol/L (96-108); Globulin 2.8 gm/dL (2.2-3.7); Glomerular Filtration Rate 99; Glucose 77 mg/dL (70-105); Lactate Dehydrogenase 298 U/L (135-225); Phosphorous 1.6 mg/dL (2.5-4.5); Triglycerides 82 mg/dL (<150); Uric Acid 3.9 mg/dL (2.5-8.0)
[2022-04-11 07:36] LABS: Basophils # (Auto) 0.04 K/mcL (0.00-0.30); Basophils % (Auto) 0.4 % (0.0-2.0); Eosinophils # (Auto) 0.16 K/mcL (0.00-0.70); Eosinophils % (Auto) 1.4 % (0.0-7.0); Hematocrit 33.2 % (40.1-51.0); Lymphocytes # (Auto) 0.73 K/mcL (1.50-4.80); Lymphocytes % (Auto) 6.6 % (15.5-49.0); Mean Cell Volume 102.8 fL (80.0-100.0); Mean Corpuscular HGB Conc 33.1 g/dL (31.0-36.0); Mean Platelet Volume 12.1 fL (7.4-10.4); Monocytes # (Auto) 0.76 K/mcL (0.10-0.90); Monocytes % (Auto) 6.8 % (1.0-12.0); Neutrophils % (Auto) 84.4 % (38.0-78.0); Platelet Count 85 K/mcL (140-440); RBC 3.23 M/mcL (4.63-6.08); Red Cell Distribution Width 13.3 % (11.5-14.5); WBC 11.1 K/mcL (4.5-11.0)
[2022-04-11] MEDS: oxyCODONE/APAP 5/325MG TABLET PO PRN ×2 (07:52→11:40)
[2022-04-11] MEDS: ALBUTEROL SULFATE 200 PUFF INHALER INH PRN ×2 (08:14→17:15)
[2022-04-11] MEDS: PREGABALIN 75 MG CAPSULE PO SCH ×2 (08:14→20:32)
[2022-04-11] MEDS: FOLIC ACID 1 MG TABLET PO SCH (08:14)
[2022-04-11] MEDS: ENOXAPARIN 40 MG/0.4 ML SYRINGE SQ SCH (08:14)
[2022-04-11] MEDS: LOSARTAN 50 MG TABLET PO SCH (08:14)
[2022-04-11] MEDS: OMEPRAZOLE 20 MG CAPSULE PO SCH (08:14)
[2022-04-11] MEDS ORDERED: POTASSIUM CHLORIDE 20 MEQ TABLET PO ONE (08:31)
[2022-04-11] MEDS: THIAMINE 100 MG in 0.9 % SODIUM CHLORIDE 50 ML IV SCH (09:16)
[2022-04-11] MEDS: NEUTRA PHOS 1 PACKET PO SCH ×2 (09:16→20:32)
[2022-04-11] MEDS: NICOTINE 21 MG PATCH TOPICAL SCH (09:16)
[2022-04-11] MEDS: amLODIPine 5 MG TABLET PO SCH ×2 (09:16→09:39)
[2022-04-11] MEDS: 0.9 % SODIUM CHLORIDE 1,000 ML IV SCH (09:35)
--- NOTE | 2022-04-11 12:24 | Internal Med Progress Note ---
SUBJECTIVE Subjective Patient information: Note initiated : 04/11/22 at 12:14 pm Service Date, if different from initiated Date: [] Patient: Artie Zavala 56 y/o M admitted on 04/08/22 for ABD pain. Chief Complaint: [] Interval history: Mr. Zavala is a 56 year old male with a history of hypertension, COPD, GERD, tobacco use disorder, alcohol use disorder who presented to the emergency department for abdominal pain and found to have acute pancreatitis. CT abdomen pelvis with contrast showed severe acute interstitial pancreatitis with no ev idence of necrosis pseudocyst or other complication. The CT scan also showed moderate gallbladder enlargement with gallbladder wall enhancement and pericholecystic fluid, no gallstones identified. The patient drinks of substantial amount of alcohol daily and has had episodes of acute pancreatitis before. Laboratory work-up in the ED shows the patient also has an acute kidney injury, elevated lactic acid, hypocalcemia, elevated AST with normal ALT consistent with alcoholic hepatitis. Lipase level was 1755. 04/09 Patient had a high-grade temp overnight, leukocytosis noted from a morning labs. Acute kidney injury resolved with IV fluid. Lactic acid downtrending. Right upper quadrant ultrasound showed a moderately enlarged gallbladder with diffuse wall thickening, no stones identified. There is also moderate dilation of the common bile duct, no stone identified within the duct. Started empiric ceftriaxone and metronidazole IV for possible acalculous cholecystitis. MRCP ordered, GI and surgery consulted. Continue clear liquid diet for now. 04/10 Vital stable overnight, the patient feels better overall. General surgery did not feel the patient has acute cholecystitis. Empiric antibiotics discontinued. IV fluid rate decreased. Diet advanced. 917 Improving clinically, tolerating diet. Replace phosphorus with Neutra-Phos, discontinue IV fluid. Weaning IV Dilaudid. Transition to MedSurg. Physical exam Head: Atraumatic, normal inspection. Eyes: normal appearance, no scleral icterus. Neck: full ROM Respiratory: no respiratory distress. Cardiovascular: normal rate and rhythm, S1, S2. GI/Abdominal: Decreased abdominal tenderness, no guarding. Extremities: full range of motion, nontender. Neurological: CN II-XII intact, intact motor, intact sensation. Psychiatric: normal mood. Skin: warm, normal color Constitutional Vitals: Vital Signs Temp Pulse Resp BP Pulse Ox O2 Del Method O2 Flow Rate 97.7 F 92 H 20 160/102 100 0 04/11/22 11:08 04/11/22 09:20 04/11/22 11:08 04/11/22 11:08 04/11/22 11:08 04/11/22 11:08 04/11/22 09:20 Period Temp Pulse Resp BP Sys/Mata Pulse Ox O2 Del Method O2 Flow Rate Last 24 Hr 97.7 F-99.8 F 79-98 14-26 144-171/95-112 90-100 Nasal Cannula- Room Air 0-2 Intake and Output 04/10/22 04/11/22 04/11/22 21:59 05:59 13:59 Intake Total 437 694 1157 Output Total 700 2150 550 Balance 252 -1750 1141 Weight 68.311 kg Intake & Output: Intake & Output 04/10/22 04/11/22 04/11/22 21:59 05:59 13:59 Intake Total 191 204 7703 Output Total 700 2150 550 Balance 252 -1750 1141 Weight 68.311 kg Intake: IV 312 1051 Sodium Chloride 0.9% 1,000 ml @ 0 1000 75 mls/hr IV .[id number] [facility] Rx#: [id number] Magnesium Sulfate 8.12 Meq In 52 Dextrose 5% in Water 50 ml @ 52 mls/hr IV ONCE ONE Rx#: [id number] Potassium Chloride 20 Meq In 260 Dextrose 5% in Water 250 ml @ 130 mls/hr IV ONCE ONE Rx#: [id number] Vitamin B1 100 mg In Sodium 51 Chloride 0.9% 50 ml @ 50 mls/hr IV DAILY [facility] Rx#:[id number] Oral 640 400 640 Output: Void Amount 450 2150 550 Urine/Stool Mix 250 Other: Meal Dinner Breakfast Percent of Meal Consumed 75% 50% Feeding Ability Independent Independent Urine Appearance Clear Clear Clear Urine Color Yellow Pale Dark Yellow Pale Stool Size Small Large Small Stool Color Green Brown Brown Green Black Stool Consistency Liquid Liquid Liquid Loose Watery # Voids 1 # Bowel Movements 1 1 # of times incontinent of 0 Bowels OBJ DATA Labs CBC & Chem 7: 04/11/22 05:03 04/11/22 05:03 Labs: Abnormal Lab Results 04/11/22 04/11/22 04/10/22 05:03 05:03 05:36 WBC 11.1 H RBC 3.23 L Hgb 11.0 L Hct 33.2 L POC Hct MCV 102.8 H MCH 34.1 H Plt Count 85 L MPV 12.1 H Neut % (Auto) 84.4 H Lymph % (Auto) 6.6 L Lymph # (Auto) 0.73 L Immature Gran # Absolute Neutrophils 9.38 H POC VBG pH POC VBG pCO2 at Temp POC VBG HCO3 POC VBG Total CO2 POC VBG Base Excess VBG Lactic Acid Sodium Potassium 3.2 L Carbon Dioxide 20 L POC Total CO2 BUN 4 L POC Creatinine Calcium 8.0 L POC WB Ioniz Calcium Phosphorus 1.6 L Magnesium Direct Bilirubin GGT 399 H AST Alkaline Phosphatase 174 H Lactate Dehydrogenase 298 H C-Reactive Protein Total Protein 5.7 L Albumin 2.9 L Albumin/Globulin Ratio Lipase 160 H POC Troponin I 04/10/22 04/10/22 04/09/22 05:36 05:36 05:26 WBC 12.8 H RBC 2.88 L Hgb 9.7 L Hct 29.9 L POC Hct MCV 103.8 H MCH Plt Count 81 L MPV 12.4 H Neut % (Auto) 88.8 H Lymph % (Auto) 5.0 L Lymph # (Auto) 0.64 L Immature Gran # 0.07 H Absolute Neutrophils 11.37 H POC VBG pH POC VBG pCO2 at Temp POC VBG HCO3 POC VBG Total CO2 POC VBG Base Excess VBG Lactic Acid Sodium 129 L Potassium Carbon Dioxide 19 L 19 L POC Total CO2 BUN POC Creatinine Calcium 7.3 L 7.8 L POC WB Ioniz Calcium Phosphorus 2.3 L Magnesium 1.3 L Direct Bilirubin 0.3 H GGT 402 H 599 H AST 60 H 213 H Alkaline Phosphatase 194 H 280 H Lactate Dehydrogenase 245 H 309 H C-Reactive Protein 15.30 H Total Protein 4.9 L 5.8 L Albumin 2.3 L Albumin/Globulin Ratio 0.9 L Lipase POC Troponin I 04/09/22 04/08/22 04/08/22 05:26 22:24 16:56 WBC 19.3 H RBC 3.23 L Hgb 11.4 L Hct 32.9 L POC Hct MCV 101.9 H MCH 35.3 H Plt Count 123 L MPV 12.2 H Neut % (Auto) 94.3 H Lymph % (Auto) 1.7 L Lymph # (Auto) 0.33 L Immature Gran # 0.08 H Absolute Neutrophils 18.16 H POC VBG pH POC VBG pCO2 at Temp POC VBG HCO3 POC VBG Total CO2 POC VBG Base Excess VBG Lactic Acid 3.3 H Sodium Potassium Carbon Dioxide POC Total CO2 BUN POC Creatinine Calcium POC WB Ioniz Calcium Phosphorus Magnesium Direct Bilirubin GGT AST Alkaline Phosphatase Lactate Dehydrogenase C-Reactive Protein Total Protein Albumin Albumin/Globulin Ratio Lipase POC Troponin I 0.01 L 04/08/22 04/08/22 04/08/22 16:54 16:50 16:47 WBC RBC Hgb Hct POC Hct 38.0 L MCV MCH Plt Count MPV Neut % (Auto) Lymph % (Auto) Lymph # (Auto) Immature Gran # Absolute Neutrophils POC VBG pH 7.44 H POC VBG pCO2 at Temp 27.3 L POC VBG HCO3 18.3 L POC VBG Total CO2 19.0 L POC VBG Base Excess -6.0 L VBG Lactic Acid 5.2 H* Sodium Potassium Carbon Dioxide POC Total CO2 19.0 L BUN POC Creatinine 1.5 H Calcium POC WB Ioniz Calcium 1.04 L Phosphorus Magnesium Direct Bilirubin GGT AST 287 H Alkaline Phosphatase 169 H Lactate Dehydrogenase C-Reactive Protein Total Protein Albumin Albumin/Globulin Ratio Lipase 1755 H POC Troponin I 04/08/22 16:47 WBC RBC 3.37 L Hgb 11.5 L Hct 33.2 L POC Hct MCV MCH 34.1 H Plt Count MPV 11.9 H Neut % (Auto) Lymph % (Auto) Lymph # (Auto) Immature Gran # Absolute Neutrophils POC VBG pH POC VBG pCO2 at Temp POC VBG HCO3 POC VBG Total CO2 POC VBG Base Excess VBG Lactic Acid Sodium Potassium Carbon Dioxide POC Total CO2 BUN POC Creatinine Calcium POC WB Ioniz Calcium Phosphorus Magnesium Direct Bilirubin GGT AST Alkaline Phosphatase Lactate Dehydrogenase C-Reactive Protein Total Protein Albumin Albumin/Globulin Ratio Lipase POC Troponin I Meds: Medications Acetaminophen (Acetaminophen 325 Mg Tablet) 650 mg PO Q6HP PRN; Protocol PRN Reason: Per Pain Protocol/Fever > 101 Hydrocodone Bitart/Acetaminophen (Hydrocodone/Apap 5/325mg Tablet) 1 tab PO Q4HP PRN; Protocol PRN Reason: Per Pain Protocol Last Admin: 04/10/22 20:29 Dose: 1 tab Albuterol Sulfate (Albuterol Sulfate 200 Puff Inhaler) 2 puff INH Q4-6HP PRN PRN Reason: wheezing and/or shortness of breath Last Admin: 04/11/22 08:14 Dose: 2 puff Enoxaparin Sodium (Enoxaparin 40 Mg/0.4 Ml Syringe) 40 mg SQ DAILY [facility] Last Admin: 04/11/22 08:14 Dose: 40 mg Folic Acid (Folic Acid 1 Mg Tablet) 1 mg PO DAILY [facility] Last Admin: 04/11/22 08:14 Dose: 1 mg Hydromorphone HCl (Hydromorphone 0.5 Mg/0.5 Ml Syringe) 0.5 - 1 mg IV Q2HP PRN; Protocol PRN Reason: Per Pain Protocol Last Admin: 04/10/22 18:08 Dose: 0.5 mg Labetalol HCl (Labetalol 5 Mg/Ml Ml) 10 mg IV Q2HP PRN PRN Reason: hypertension Last Admin: 04/11/22 03:27 Dose: 10 mg Lactulose (Lactulose 20 Gm/30 Ml Oral.Sarah) 10 gm PO DAILYP PRN PRN Reason: Constipation Lorazepam (Lorazepam 2 Mg/Ml Vial) 1 mg IV Q1HP PRN PRN Reason: ANXIETY/SEDATION Last Admin: 04/09/22 22:44 Dose: 1 mg Losartan Potassium (Losartan 50 Mg Tablet) 100 mg PO DAILY [facility] Last Admin: 04/11/22 08:14 Dose: 100 mg Nicotine (Nicotine 21 Mg Patch) 21 mg TOPICAL DAILY@1000 [facility] Last Admin: 04/11/22 09:16 Dose: 21 mg Nicotine Polacrilex (Nicotine Polacrilex 2 Mg Gum) 2 mg CHEW/PARK Q4HP PRN PRN Reason: Nicotine Cravings Last Admin: 04/09/22 16:41 Dose: 2 mg Omeprazole (Omeprazole 20 Mg Capsule) 20 mg PO QAM [facility] Last Admin: 04/11/22 08:14 Dose: 20 mg Ondansetron HCl (Ondansetron 4 Mg/2 Ml Vial) 4 mg IV Q4HP PRN; Protocol PRN Reason: Nausea And Vomiting Last Admin: 04/08/22 23:48 Dose: 4 mg Oxycodone/Acetaminophen (Oxycodone/Apap 5/325mg Tablet) 1 tab PO Q4HP PRN; Protocol PRN Reason: Per Pain Protocol Last Admin: 04/11/22 11:40 Dose: 1 tab Potassium/Phosphorus/Sodium (Neutra Phos 1 Packet) 2 packet PO BID [facility] Stop: 04/13/22 08:59 Last Admin: 04/11/22 09:16 Dose: 2 packet Pregabalin (Pregabalin 75 Mg Capsule) 75 mg PO BID [facility] Last Admin: 04/11/22 08:14 Dose: 75 mg Fluticasone/Salmeterol (Fluticasone/Salmeterol 250/50 Inhaler #14) 1 puff INH BID [facility] Last Admin: 04/11/22 08:15 Dose: Not Given Senna (Sennosides 1 Tablet) 2 tab PO HSP PRN PRN Reason: Constipation Sodium Chloride (0.9 % Sodium Chloride 10 Ml Syringe) 10 ml IV Q8 [facility] Last Admin: 04/11/22 07:47 Dose: Not Given A/P Narrative A/P Narrative: Assessment: 56 year old male with a history of hypertension, COPD, GERD, tobacco use disorder, alcohol use disorder admitted for moderate to severe acute pancreatitis likely secondary to alcohol. CT abdomen pelvis with contrast showed severe acute interstitial pancreatitis as well as moderate gallbladder enlargement and wall enhancement. Right upper quadrant ultrasound showed diffuse gallbladder wall thickening, moderate dilation of the common bile duct, no gallstones. MRCP did not show any evidence of choledocholithiasis. General surgery was consulted, did not feel the patient had acute cholecystitis. Empiri c ceftriaxone and metronidazole were discontinued at that time. The patient is recovering from acute pancreatitis, tolerating a diet. #Resolving moderately severe acute pancreatitis secondary to alcohol #Gallbladder wall thickening, mildly dilated CBD -MRCP did not show any evidence of choledocholithiasis. -General surgery did not feel the patient had acute cholecystitis. #Leukocytosis, likely secondary to acute pancreatitis -General surgery did not feel the patient has acute cholecystitis. -No evidence of other infectious etiology. #Thrombocytopenia, likely secondary to alcohol #Acute on chronic anemia, likely dilutional #Resolved acute kidney injury secondary to acute pancreatitis #Severe alcohol use disorder #Severe tobacco use disorder #COPD #Hypertension #GERD Plan -Transferred to [facility]. -Analgesics as needed, wean IV Dilaudid -Discontinue IV fluid. -General surgery was consulted, did not feel the patient had acute cholecystitis. -Monitor CBC, inpatient panel. -Replace electrolytes as needed. -Continue home losartan, Prilosec, Lyrica. -Nicotine replacement. -Monitor for alcohol withdrawal with CIWA scores, Ativan as needed. -Thiamine and folic acid supplementation. -Continue low-fat diet. 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
[2022-04-11] MEDS ORDERED: HYDROmorphone 0.5 MG/0.5 ML SYRINGE IV PRN (12:25)
[2022-04-11] MEDS: HYDROcodone/APAP 5/325MG TABLET PO PRN (19:18)
[2022-04-12] MEDS: 0.9 % SODIUM CHLORIDE 10 ML SYRINGE IV SCH (05:20)
[2022-04-12] MEDS: HYDROcodone/APAP 5/325MG TABLET PO PRN (06:00)
[2022-04-12] MEDS: ALBUTEROL SULFATE 200 PUFF INHALER INH PRN (06:00)
[2022-04-12 06:53] LABS: Basophils # (Auto) 0.04 K/mcL (0.00-0.30); Basophils % (Auto) 0.4 % (0.0-2.0); Eosinophils # (Auto) 0.15 K/mcL (0.00-0.70); Eosinophils % (Auto) 1.4 % (0.0-7.0); Hematocrit 28.6 % (40.1-51.0); Hemoglobin 9.7 g/dL (13.7-17.5); Lymphocytes # (Auto) 0.99 K/mcL (1.50-4.80); Lymphocytes % (Auto) 9.5 % (15.5-49.0); Mean Cell Volume 101.4 fL (80.0-100.0); Mean Corpuscular HGB Conc 33.9 g/dL (31.0-36.0); Mean Platelet Volume 12.3 fL (7.4-10.4); Monocytes # (Auto) 1.33 K/mcL (0.10-0.90); Monocytes % (Auto) 12.7 % (1.0-12.0); Neutrophils % (Auto) 75.5 % (38.0-78.0); Platelet Count 107 K/mcL (140-440); RBC 2.82 M/mcL (4.63-6.08); Red Cell Distribution Width 13.2 % (11.5-14.5); WBC 10.4 K/mcL (4.5-11.0)
[2022-04-12 07:07] LABS: ALT/SGPT 9 U/L (<40); AST/SGOT 17 U/L (<40); Albumin 2.9 gm/dL (3.2-5.2); Albumin/Globulin Ratio 1.5 (1.0-2.3); Alkaline Phosphatase 135 U/L (39-117); Bilirubin,Direct < 0.2 mg/dL (0-0.3); Bilirubin,Total 0.4 mg/dL (0.1-1.0); Blood Urea Nitrogen 4 mg/dL (6-20); Calcium 8.4 mg/dL (8.6-10.4); Carbon Dioxide 24 mmol/L (22-30); Chloride 100 mmol/L (96-108); Glomerular Filtration Rate 94; Glucose 77 mg/dL (70-105); Lactate Dehydrogenase 219 U/L (135-225); Phosphorous 1.7 mg/dL (2.5-4.5); Triglycerides 91 mg/dL (<150); Uric Acid 4.5 mg/dL (2.5-8.0)
[2022-04-12] MEDS: LOSARTAN 50 MG TABLET PO SCH (08:31)
[2022-04-12] MEDS: PREGABALIN 75 MG CAPSULE PO SCH (08:31)
[2022-04-12] MEDS: NEUTRA PHOS 1 PACKET PO SCH (08:31)
[2022-04-12] MEDS: FLUTICASONE/SALMETEROL 250/50 INHALER #14 INH SCH (08:31)
[2022-04-12] MEDS: OMEPRAZOLE 20 MG CAPSULE PO SCH (08:31)
[2022-04-12] MEDS: ENOXAPARIN 40 MG/0.4 ML SYRINGE SQ SCH (08:32)
[2022-04-12] MEDS: FOLIC ACID 1 MG TABLET PO SCH (08:32)
[2022-04-12] MEDS ORDERED: MAGNESIUM SULFATE 2 GM/50 ML BAG IV ONE (09:18)
--- NOTE | 2022-04-12 09:28 | Discharge Summary ---
Discharge Provider Provider IMPORTANT FOLLOW-UP INFORMATION FOR PCP: Patient information: Note initiated : 04/12/22 at 9:26 am Service Date, if different from initiated Date: [] Patient: Artie Zavala 56 y/o M admitted on 04/08/22 for ABD pain. Chief Complaint: [] Date of admission: 04/08/22 21:17 Discharge date: 04/12/22 Primary care physician: JASPREET Wall Consults: 04/08/22 18:51 Consult to Physician [CONS] Stat Comment: Consulting Provider: Odin Westbrook Reason For Exam: Physician to Consult 04/09/22 12:13 Consult to Physician [CONS] Routine Comment: Consulting Provider: Domingo Matthew Reason For Exam: Physician to Consult 04/09/22 12:24 Consult to Physician [CONS] Routine Comment: Consulting Provider: Paul Mackay Reason For Exam: Physician to Consult COURSE Hospital Course Hospital course: Mr. Zavala is a 56 year old male with a history of hypertension, COPD, GERD, tobacco use disorder, alcohol use disorder who presented to the emergency department for abdominal pain and found to have acute pancreatitis. CT abdomen pelvis with contrast showed severe acute interstitial pancreatitis with no evidence of necrosis pseudocyst or other complication. The CT scan also showed moderate gallbladder enlargement with gallbladder wall enhancement and pericholecystic fluid, no gallstones identified. The patient drinks of substantial amount of alcohol daily and has had episodes of acute pancreatitis before. Laboratory work-up in the ED shows the patient also has an acute kidney injury, elevated lactic acid, hypocalcemia, elevated AST with normal ALT consistent with alcoholic hepatitis. Lipase level was 1755. 04/09 Patient had a high-grade temp overnight, leukocytosis noted from a morning labs. Acute kidney injury resolved with IV fluid. Lactic acid downtrending. Right upper quadrant ultrasound showed a moderately enlarged gallbladder with diffuse wall thickening, no stones identified. There is also moderate dilation of the common bile duct, no stone identified within the duct. Started empiric ceftriaxone and metronidazole IV for possible acalculous cholecystitis. MRCP ordered, GI and surgery consulted. Continue clear liquid diet for now. 04/10 Vital stable overnight, the patient feels better overall. General surgery did not feel the patient has acute cholecystitis. Empiric antibiotics discontinued. IV fluid rate decreased. Diet advanced. 04/11 Improving clinically, tolerating diet. Replace phosphorus with Neutra-Phos, discontinue IV fluid. Weaning IV Dilaudid. Transition to MedSurg. 04/12 No significant events overnight, magnesium and phosphorus low on morning labs, replaced. Discharge this afternoon with sister. Discussed alcohol abstinence or at a minimum reducing alcohol intake, encouraged the patient to seek assistance for alcohol use disorder. Physical exam Head: Atraumatic, normal inspection. Eyes: normal appearance, no scleral icterus. Neck: full ROM Respiratory: no respiratory distress. Cardiovascular: normal rate and rhythm, S1, S2. GI/Abdominal: Decreased abdominal tenderness, no guarding. Extremities: full range of motion, nontender. Neurological: CN II-XII intact, intact motor, intact sensation. Psychiatric: normal mood. Skin: warm, normal color Discharge diagnosis: Acute pancreatitis secondary to alcohol Time Spent with Patient Time attestation: Total time spent providing and/or coordinating discharge services: Time spent: Less than 30 minutes EXAM Constitutional Vitals: Temp Pulse Resp BP Pulse Ox O2 Del Method O2 Flow Rate 99.2 F H 84 16 157/112 96 0 04/12/22 06:59 04/12/22 06:59 04/12/22 04:08 04/12/22 06:59 04/12/22 04:08 04/12/22 04:08 04/11/22 09:20 Discharge Data Data Completed and Pending Labs on day of discharge: Labs from last 24 hours 04/12/22 04/12/22 05:46 05:46 WBC 10.4 RBC 2.82 L Hgb 9.7 L Hct 28.6 L MCV 101.4 H MCH 34.4 H MCHC 33.9 RDW 13.2 Plt Count 107 L MPV 12.3 H Immature Gran % (Auto) 0.5 Neut % (Auto) 75.5 Lymph % (Auto) 9.5 L Cecil % (Auto) 12.7 H Eos % (Auto) 1.4 Baso % (Auto) 0.4 Lymph # (Auto) 0.99 L Cecil # (Auto) 1.33 H Eos # (Auto) 0.15 Baso # (Auto) 0.04 Immature Gran # 0.05 Absolute Neutrophils 7.88 Sodium 132 L Potassium 3.6 Chloride 100 Carbon Dioxide 24 Anion Gap 8.0 BUN 4 L Creatinine 0.9 GFR Calculation 94 Glucose 77 Uric Acid 4.5 Calcium 8.4 L Phosphorus 1.7 L Magnesium 1.5 L Total Bilirubin 0.4 Direct Bilirubin < 0.2 GGT 341 H AST 17 ALT 9 Alkaline Phosphatase 135 H Lactate Dehydrogenase 219 Total Protein 4.9 L Albumin 2.9 L Globulin 2.0 L Albumin/Globulin Ratio 1.5 Triglycerides 91 Preliminary micro results at discharge 04/08/22 17:50 Blood Culture - Preliminary Blood 04/08/22 17:40 Blood Culture - Preliminary Blood Discharge Plan Patient/Caregiver Discharge Instructions Activity: increase activity as tolerated Diet: Regular Diet Prescriptions: New nicotine (polacrilex) 2 mg Gum 2 mg CHEW/PARK Q4HP PRN (Reason: Nicotine Cravings) Qty: 100 6RF nicotine 21 mg/24 hr Patch 24 Hour 21 mg topical DAILY@1000 Qty: 60 2RF folic acid 1 mg Tablet 1 mg PO DAILY 60 Days Qty: 60 0RF thiamine HCl (vitamin B1) 100 mg tablet 100 mg PO QDAY Qty: 60 2RF Continued albuterol sulfate [Ventolin HFA] 90 mcg/actuation HFA aerosol inhaler 2 puff INHALATION .Q4-6H PRN (Reason: wheezing and/or shortness of breath) Qty: 18 5RF folic acid 1 mg tablet 1 mg PO QDAY Qty: 90 1RF hydrocodone-acetaminophen 7.5-325 mg tablet 1 tab PO .COMPLEX PRN (Reason: pain) Qty: 120 0RF Rx Instructions: 1 tab orally q 6 hrs prn for pain. Max of 4/day. Must last 30 days. PRN; tamsulosin 0.4 mg capsule 0.4 mg PO QDAY oxygen 2 L as needed See Rx Instructions .ROUTE .COMPLEX Rx Instructions: Nasal as needed; omeprazole 20 mg capsule,delayed release(DR/EC) 20 mg PO QAM Dose Instruction: take 1 capsule by mouth once daily losartan 100 mg tablet 100 mg PO QDAY fluticasone propion-salmeterol [Advair Diskus] 250-50 mcg/dose blister with device 1 inh INHALATION BID Qty: 60 5RF ferrous sulfate 325 mg (65 mg iron) tablet 325 mg PO BID Qty: 60 2RF pregabalin [Lyrica] 75 mg capsule 75 mg PO BID Qty: 60 2RF Follow Up Plan Follow up with: Pasquale Laboy ARNP [Primary Care Provider] - Patient Disposition: Home, Self-Care Prognosis: Serious Overall status at discharge: patient is progressing back to baseline Discharge Orders: Discharge Order (Routine); Ordered 04/12/22 Ordered By: Odin RICHARDS VTE Deep Vein Thrombosis/Pulmonary Embolism Present on Admission: No
[2022-04-12] MEDS: NICOTINE 21 MG PATCH TOPICAL SCH (10:22)
[2022-04-12] MEDS ORDERED: POTASSIUM PHOSPHATE 40 MEQ in DEXTROSE 5% IN WATER 500 ML IV ONE (11:00)
== END 2022-04-12 13:36 | disposition home or self-care (01) | DRG 439 ==
LOC: ED 16:29 → ICU 21:17 → MEDSUR 04-11 11:00
PROVIDERS: ADMIT Internal Medicine; ATTEND Internal Medicine

== ENCOUNTER 2022-05-08 16:25 | Inpatient (IN) ==
--- NOTE | 2022-05-08 16:45 | Internal Med History&Physical ---
HPI History of Present Illness Patient information: Note initiated : 05/08/22 at 4:37 pm Service Date, if different from initiated Date: [] Patient: Artie Zavala a 56 y/o M admitted on for Fracture/dislocation. Chief Complaint: [fall] Chief complaint: fall History of present illness: Mr. Zavala is a 56 year old M history of alcoholism, COPD, hypertensions, chronic back pain, presented with fall and resultant right intertrochanteric hip fracture. Patient was walking dog earlier today, being tripped by the dog leash, fell and unable to get up. He was sent by EMS to outside hospital, where he was found to have a right intertrochanteric hip fracture. Outside ER physicians contacted our orthopedic surgeon Dr. Cruz, who agreed to operate on the patient's. Admission request was called for medical management. Patient's is reported to be heavy drinker with daily drinks of at least 5 shots of hard liquor and last drink was earlier today. Review of Systems ROS unobtainable: other PFSH PFSH All Active Problems Fracture, intertrochanteric, right femur (Acute) Chronic alcoholism (Acute) Acute pancreatitis (Acute) Chronic back pain (Acute) Strain of left hip (Acute) Duodenitis (Acute) Increased serum lipase level (Acute) H. pylori infection (Acute) C. difficile colitis (Acute) Colitis (Acute) Upper GI hemorrhage (Chronic) Hypertension (Chronic) Back pain (Chronic) Pain in joint, multiple sites (Chronic) Neutrophilia (Chronic) Screening for malignant neoplasm of colon (Chronic) Screening for malignant neoplasm of prostate (Chronic) Tobacco dependence (Chronic) Alcohol dependence (Chronic) Chronic bronchitis (Chronic) Hypertension (Chronic) GERD (gastroesophageal reflux disease) (Chronic) Anxiety (Chronic) Arthritis (Chronic) Muscle pain (Chronic) Daytime sleepiness (Chronic) Heart problem (Chronic) History of arthroplasty of right ankle (Chronic ~2016) Cellulitis of foot (Chronic) Urticaria (Chronic) COPD (chronic obstructive pulmonary disease) (Chronic) Bilateral lower extremity edema (Chronic) Eczema (Chronic) Claudication of both lower extremities (Chronic) Stasis dermatitis (Chronic) Prostatitis (Chronic) Difficulty urinating (Chronic) Dizziness (Chronic) Syncope (Chronic) Pneumonia (Chronic) Hypotension (Chronic) Tooth abscess (Chronic) Dysphagia (Chronic) Hypokalemia (Chronic) Ascending aorta enlargement (Chronic) Aortic root enlargement (Chronic) Low back pain (Chronic) Chronic pain (Chronic) Tobacco use (Chronic) Chronic alcohol 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 (Chronic) 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 (Chronic) Spondylosis without myelopathy or radiculopathy, lumbar region (Acute) Spondylosis without myelopathy or radiculopathy, lumbosacral region (Acute) Decreased renal function (Acute) Blurred vision, bilateral (Acute) Alteration in vision (Acute) History of Helicobacter pylori infection (Acute) Episode of gagging (Acute) Nausea & vomiting (Acute) Low folate (Acute) Iron deficiency anemia (Acute) Resistant hypertension (Chronic) Excessive chloride salt intake (Chronic) Hyponatremia (Chronic) Alcohol abuse (Acute) Medical History Alcohol dependence Anxiety Arthritis Back pain Chronic alcohol use Chronic bronchitis Chronic pain Daytime sleepiness GERD (gastroesophageal reflux disease) Heart problem Hypertension Iron deficiency anemia 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 for nonmalignant pain Low back pain Low folate Muscle pain Neutrophilia Pain in joint, multiple sites Screening for malignant neoplasm of colon Screening for malignant neoplasm of prostate Tobacco dependence Tobacco use Surgical History (Updated 05/07/22 @ 15:38 by Nunu Morrow) History of arthroplasty of right ankle (~2015) due to fracture History of esophagogastroduodenoscopy (EGD) (05/06/22) Family History Family/Other Cancer Hypertension Mother Hypertension Arthritis Father Arthritis Hypertension Sister Arthritis Chronic pain Social History marital status: physical activity: none smoking status: Current every day smoker tobacco type: cigarettes per day: 1 smoking status start date: 07/26/81 alcohol intake frequency: 2+ drinks per day substance use type: does not use seatbelt use: always MEDS/ALLERGIES Home Medications and Allergies Home Medications Medication Instructions Recorded Confirmed Type oxygen 2 L as needed See Rx Instructions .Route .COMPLEX 08/13/20 05/07/22 History omeprazole 20 mg capsule,delayed 20 mg PO QAM 12/03/20 05/07/22 History release fluticasone 250 mcg-salmeterol 50 1 inh inhalation BID #60 ea 03/13/21 05/07/22 Rx mcg/dose blistr powdr for inhalation (Advair Diskus) losartan 100 mg tablet 100 mg PO QDAY 05/27/21 05/07/22 History albuterol sulfate 90 mcg/actuation 2 puff inhalation .Q4-6H PRN 09/30/21 05/07/22 Rx aerosol inhaler (Ventolin HFA) wheezing and/or shortness of breath #18 grams folic acid 1 mg tablet 1 mg PO QDAY #90 tabs 11/19/21 05/07/22 Rx ferrous sulfate 325 mg (65 mg 325 mg PO BID #60 tabs 12/17/21 05/07/22 Rx iron) tablet tamsulosin 0.4 mg capsule 0.4 mg PO QDAY 01/07/22 05/07/22 History folic acid 1 mg tablet 1 mg PO DAILY 60 days #60 tabs 04/12/22 05/07/22 Rx nicotine (polacrilex) 2 mg gum 2 mg CHEW/PARK Q4HP PRN Nicotine 04/12/22 05/07/22 Rx Cravings #100 ea nicotine 21 mg/24 hr daily 21 mg topical DAILY@1000 #60 ea 04/12/22 05/07/22 Rx transdermal patch thiamine HCl (vitamin B1) 100 mg 100 mg PO QDAY #60 tabs 04/12/22 05/07/22 Rx tablet pregabalin 75 mg capsule (Lyrica) 75 mg PO BID #60 caps 04/28/22 05/07/22 Rx sodium chloride 1 gram tablet 2,000 mg PO BID #180 tabs 04/29/22 05/07/22 Rx hydrocodone 7.5 mg-acetaminophen 1 tab PO .COMPLEX PRN pain #120 05/05/22 05/07/22 Rx 325 mg tablet tabs Allergies Allergy/AdvReac Type Severity Reaction Status Date / Time amlodipine AdvReac Mild Itching Verified 04/14/22 07:30 Terazosin AdvReac Mild Itching Verified 04/14/22 07:30 EXAM Constitutional General appearance: cooperative and no acute distress Head Head exam: Present atraumatic and normocephalic Eye Eye exam: Present EOMI and PERRL ENT ENT exam: Present mucous membranes moist, normal exam and normal external ear exam Neck Neck exam: Present normal inspection; Absent lymphadenopathy, tenderness or thyromegaly Respiratory Respiratory exam: Absent accessory muscle use, respiratory distress or wheezes Cardiovascular Cardiovascular exam: Present normal rate and rhythm; Absent JVD GI/Abdominal GI/Abdominal exam: Present normal bowel sounds and soft; Absent organomegaly or tenderness Rectal Rectal exam: Present deferred Extremities Exam Extremities exam: Present normal capillary refill and tenderness; Absent full ROM or normal inspection Neurological Exam Neurological exam: Present alert, CN II-XII intact and oriented X3; Absent motor sensory deficit Psychiatric Psychiatric exam: Present normal affect and normal mood; Absent anxious or depressed Skin Skin exam: Present dry and intact A/P Assessment and plan (1) Alcohol abuse: Status: Acute Comment: Root cause of all this patient's maladies (2) COPD (chronic obstructive pulmonary disease): Status: Chronic Qualifiers: COPD type: emphysema Emphysema type: unspecified Qualified Code(s): J43.9 - Emphysema, unspecified (3) Hypertension: Status: Chronic Qualifiers: Hypertension type: essential hypertension Qualified Code(s): I10 - Essential (primary) hypertension (4) Alcohol dependence: Status: Chronic Qualifiers: Substance use status: unspecified alcohol-induced disorder Qualified Code(s): F10.29 - Alcohol dependence with unspecified alcohol-induced disorder (5) Chronic back pain: Status: Acute (6) Fracture, intertrochanteric, right femur: Status: Acute Narrative A/P Narrative: Assessment and Plans: 1. Right intertrochanteric hip fracture: Inpatient med surg Bedrest NPO with NS@100cc/hr Consult orthopedic surgeon Dr. Cruz for surgical management Physical therapy Tylenol [place] Dialudid IV 2. 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 Essential hypertension: Losartan Hydralazine 10mg IV q4-6hr PRN SBP>=180 and/or DBP>=110mmHg Treat right hip pain, see #1 4. COPD: Continue bronchodilators from home regimen 5. Chronic back pain: [place] GI ppx: oral PPI DVT ppx: SCDs Code status: Full Prognosis: guarded Disposition: inpatient med surg Time Spent With Patient Time: Total time spent is greater than 50% in coordination of care (as documented) at patient's floor/unit and/or counseling patient: Total time spent with greater than 50% in coordination of care (as documented) at patient's floor/unit and/or counseling patient:: 50 - 70 minutes
[2022-05-08] MEDS ORDERED: hydrALAZINE 20 MG/ML VIAL IV PRN (17:48)
[2022-05-08] MEDS ORDERED: ACETAMINOPHEN 325 MG TABLET PO PRN (17:48)
[2022-05-08] MEDS ORDERED: HALOPERIDOL LACTATE 5 MG/ML VIAL IV PRN (17:48)
[2022-05-08] MEDS ORDERED: ONDANSETRON 4 MG/2 ML VIAL IV PRN (17:48)
[2022-05-08] MEDS ORDERED: IPRATROPIUM/ALBUTEROL 3 ML AMPUL.NEB NEB PRN (17:48)
[2022-05-08] MEDS ORDERED: LORazepam 1 MG TABLET PO PRN (17:48)
[2022-05-08] MEDS ORDERED: cloNIDine HCL 0.1 MG TABLET PO PRN (17:48)
--- OUTSIDE RECORDS SUMMARY | 2022-05-08 17:48 | External Medical Summary ---
:1965 Author Care Team Providers Name Role Phone NEISHA RILEY Referring Provider [phone] Allergies Code Code System Name Reaction Severity Status Onset RxNorm Amlodipine Active Medications Name Status Start Date Stop Date acetaminophen 300 mg-codeine 30 mg tablet Active Not available Take 1 tablet every 6 hours by oral route as needed. albuterol sulf 90 mcg/actuation breath activated powder inhaler, sensor Active Not available Inhale 2 puffs every 4 hours by inhalation route as needed. amlodipine 10 mg tablet Completed 04/15/20 20 Take 1 tablet every day by oral route. amlodipine 5 mg tablet Completed 0 Ativan 1 mg tablet Active Not available 1 tab prior to MRI cephalexin 500 mg capsule Completed 2019 ciprofloxacin 500 mg tablet Completed 03/27 ferrous sulfate 325 mg (65 mg iron) tablet Completed 06/10/2020 folic acid 1 mg tablet Completed 0 furosemide 20 mg tablet Active Not avai lable halobetasol propionate 0.05 % topical ointment Active Not available hydrochlorothiazide 12.5 mg capsule Completed 04/15/2020 hydroxyzine HCl 25 mg tablet Completed Take 1 tablet 3 times a day by oral route. hydroxyzine HCl 50 mg tablet Active Not available losartan 100 mg tablet Completed 0 losartan 100 mg-hydrochlorothiazide 12.5 mg tablet Completed 06/10/2020 Take 1 tablet every day by oral route. losartan 100 mg-hydrochlorothiazide 25 mg tablet Active Not available take 1 tablet by mouth once daily naproxen 500 mg tablet Completed 0 Take 1 tablet twice a day by oral route. omeprazole 10 mg capsule,delayed release Completed 04/15/2020 Take 2 capsules every day by oral route. omeprazole 20 mg capsule,delayed release Active Not available potassium chloride ER 10 mEq capsule,extended release Completed 06/10/2020 potassium chloride ER 10 mEq tablet,extended release Active Not available Take 1 tablet every day by oral route. prednisone 20 mg tablet Completed 04/15/20 20 Take 1 tablet every day by oral route. prednisone 50 mg tablet Completed 04/15/20 20 salmeterol 50 mcg/dose blister powder for inhalation Active Not available Inhale 1 puff twice a day by inhalation route. sodium chloride 1 gram tablet Active No t available take 2 tablets by mouth twice a day tamsulosin 0.4 mg capsule Active Not av ailable terazosin 5 mg capsule Completed 0 tizanidine 4 mg tablet Active Not avail able triamcinolone acetonide 0.1 % topical cream Active Not available Problems Name Status Onset Date Source Peripheral Vascular Disease Active 04/15/2020 Peripheral Venous Insufficiency Active 04/15/2020 Procedures Date Name Performed by 07/26/2016 Foot Surgery Information not avai lable 05/22/2020 US, Duplex, Arterial, Lower Extremity, [facility] [place] Rad[facility] Complete [address] [facility] [place] [id number] ([address]) 06/13/2020 MRI, Lumbar Spine, W/wo Contrast [facility] [address] [facility] [place] [id number] (Work Place) 06/13/2020 MRI, Sacral Plexus, W/wo Contrast [facility] [address] [facility] [place] [address] (Work Place) Results Lab Results None recorded. Past Encounters None recorded. Social History Tobacco Smoking Status Heavy Tobacco Smoker (1 pack per day) Vaccine List None recorded. Plan of Care Reminders Provider Appointments None recorded. Lab None recorded. Referral None recorded. Procedures None recorded. Surgeries None recorded. Imaging None recorded. Vitals 06/10/2020 08:15AM IR- ESTABLISHED Height Weight BMI Blood Pressure 5 ft 8 in 154.5 lbs 23.5 kg/m2 (1) 125/88 mm[H g] (2) 125/88 mm[Hg ] 04/15/2020 08:30AM New Patient 30 Height Weight BMI Blood Pressure 5 ft 8 in 162 lbs 24.6 kg/m2 151/62 mm[Hg] 01/18/2020 Height Weight BMI Blood Pressure 5 ft 8 in 153 lbs 23.3 kg/m2 142/90 mm[Hg]
[2022-05-08 18:58] LABS: Alcohol, Blood < 10.0 mg/dL; Alcohol,Blood < 0.010 gm/dL (<0.010)
[2022-05-08] MEDS: HYDROmorphone 0.5 MG/0.5 ML SYRINGE IV PRN ×2 (18:59→23:13)
[2022-05-08] MEDS: 0.9 % SODIUM CHLORIDE 1,000 ML IV SCH (18:59)
[2022-05-08] MEDS: HYDROcodone/APAP 5/325MG TABLET PO PRN ×2 (19:00→23:04)
--- NOTE | 2022-05-08 19:57 | Orthopedic History & Physical ---
HPI History of Present Illness Patient information: Note initiated : 05/08/22 at 7:47 pm Service Date, if different from initiated Date: [] Patient: Artie Zavala a 56 y/o M admitted on 05/08/22 for Fracture/dislocation. Chief Complaint: [Right hip pain s/p fall ] Chief complaint: Right hip pain s/p fall History of present illness: Mr. Zavala is a 56 year old M history of alcoholism, COPD, hypertensions, chronic back pain, who presented to [place] ER after a fall. Imaging obtained at that facility demonstrated a right intertrochanteric hip fracture. Reportedly; Patient was walking dog earlier today, and fell when his own dog jumped on him, he was unable to get up. ER physicians contacted orthopedic surgeon Dr. Cruz, who asked that patient be transferred and admitted to [facility] hospitalist service. Patient is a 1/2 pack a day smoker and admitted heavy drinker with daily drinks of at least 5 shots of hard liquor and last drink was earlier today. Review of Systems All systems: reviewed and no additional remarkable complaints except as stated PFSH PFSH All Active Problems Fracture, intertrochanteric, right femur (Acute) Chronic alcoholism (Acute) Acute pancreatitis (Acute) Chronic back pain (Acute) Strain of left hip (Acute) Duodenitis (Acute) Increased serum lipase level (Acute) H. pylori infection (Acute) C. difficile colitis (Acute) Colitis (Acute) Upper GI hemorrhage (Chronic) Hypertension (Chronic) Back pain (Chronic) Pain in joint, multiple sites (Chronic) Neutrophilia (Chronic) Screening for malignant neoplasm of colon (Chronic) Screening for malignant neoplasm of prostate (Chronic) Tobacco dependence (Chronic) Alcohol dependence (Chronic) Chronic bronchitis (Chronic) Hypertension (Chronic) GERD (gastroesophageal reflux disease) (Chronic) Anxiety (Chronic) Arthritis (Chronic) Muscle pain (Chronic) Daytime sleepiness (Chronic) Heart problem (Chronic) History of arthroplasty of right ankle (Chronic ~2015) Cellulitis of foot (Chronic) Urticaria (Chronic) COPD (chronic obstructive pulmonary disease) (Chronic) Bilateral lower extremity edema (Chronic) Eczema (Chronic) Claudication of both lower extremities (Chronic) Stasis dermatitis (Chronic) Prostatitis (Chronic) Difficulty urinating (Chronic) Dizziness (Chronic) Syncope (Chronic) Pneumonia (Chronic) Hypotension (Chronic) Tooth abscess (Chronic) Dysphagia (Chronic) Hypokalemia (Chronic) Ascending aorta enlargement (Chronic) Aortic root enlargement (Chronic) Low back pain (Chronic) Chronic pain (Chronic) Tobacco use (Chronic) 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) use of opiate analgesic (Chronic) Spondylosis without myelopathy or radiculopathy, lumbar region (Acute) Spondylosis without myelopathy or radiculopathy, lumbosacral region (Acute) Decreased renal function (Acute) Blurred vision, bilateral (Acute) Alteration in vision (Acute) History of Helicobacter pylori infection (Acute) Episode of gagging (Acute) Nausea & vomiting (Acute) Low folate (Acute) Iron deficiency anemia (Acute) Resistant hypertension (Chronic) Excessive chloride salt intake (Chronic) Hyponatremia (Chronic) Alcohol abuse (Acute) Medical History Alcohol dependence Anxiety Arthritis Back pain Chronic alcohol use Chronic bronchitis Chronic pain Daytime sleepiness GERD (gastroesophageal reflux disease) Heart problem Hypertension Iron deficiency anemia [facility] (current) use of opiate analgesic for nonmalignant pain Low back pain Low folate Muscle pain Neutrophilia Pain in joint, multiple sites Screening for malignant neoplasm of colon Screening for malignant neoplasm of prostate Tobacco dependence Tobacco use Surgical History History of arthroplasty of right ankle (~2015) due to fracture History of esophagogastroduodenoscopy (EGD) (05/06/22) Family History Family/Other Cancer Hypertension Mother Hypertension Arthritis Father Arthritis Hypertension Sister Arthritis Chronic pain Social History marital status: physical activity: none smoking status: Current every day smoker tobacco type: cigarettes per day: 1 smoking status start date: 07/26/81 alcohol intake frequency: 2+ drinks per day substance use type: does not use seatbelt use: always MEDS/ALLERGIES Home Medications and Allergies Home Medications Medication Instructions Recorded Confirmed Type oxygen 2 L as needed See Rx Instructions .Route .COMPLEX 08/13/20 05/07/22 History omeprazole 20 mg capsule,delayed 20 mg PO QAM 12/03/20 05/07/22 History release fluticasone 250 mcg-salmeterol 50 1 inh inhalation BID #60 ea 03/13/21 05/07/22 Rx mcg/dose blistr powdr for inhalation (Advair Diskus) losartan 100 mg tablet 100 mg PO QDAY 05/27/21 05/07/22 History albuterol sulfate 90 mcg/actuation 2 puff inhalation .Q4-6H PRN 09/30/21 05/07/22 Rx aerosol inhaler (Ventolin HFA) wheezing and/or shortness of breath #18 grams folic acid 1 mg tablet 1 mg PO QDAY #90 tabs 11/19/21 05/07/22 Rx ferrous sulfate 325 mg (65 mg 325 mg PO BID #60 tabs 12/17/21 05/07/22 Rx iron) tablet tamsulosin 0.4 mg capsule 0.4 mg PO QDAY 01/07/22 05/07/22 History folic acid 1 mg tablet 1 mg PO DAILY 60 days #60 tabs 04/12/22 05/07/22 Rx nicotine (polacrilex) 2 mg gum 2 mg CHEW/PARK Q4HP PRN Nicotine 04/12/22 05/07/22 Rx Cravings #100 ea nicotine 21 mg/24 hr daily 21 mg topical DAILY@1000 #60 ea 04/12/22 05/07/22 Rx transdermal patch thiamine HCl (vitamin B1) 100 mg 100 mg PO QDAY #60 tabs 04/12/22 05/07/22 Rx tablet pregabalin 75 mg capsule (Lyrica) 75 mg PO BID #60 caps 04/28/22 05/07/22 Rx sodium chloride 1 gram tablet 2,000 mg PO BID #180 tabs 04/29/22 05/07/22 Rx hydrocodone 7.5 mg-acetaminophen 1 tab PO .COMPLEX PRN pain #120 05/05/22 05/07/22 Rx 325 mg tablet tabs Allergies Allergy/AdvReac Type Severity Reaction Status Date / Time amlodipine AdvReac Mild Itching Verified 04/14/22 07:30 Terazosin AdvReac Mild Itching Verified 04/14/22 07:30 Physical Examination Narrative Narrative: Narrative: Results Labs Labs: All other labs normal. Diagnostic results Shoulder x-ray: pending A/P Assessment and plan (1) Fracture, intertrochanteric, right femur: Status: Acute Plan On exam, patient is seated in bed in no acute distress eating dinner. Pupils are PERRL with intact ocular motion, CN II through XII are grossly intact, mucous membranes are moist. Heart is normal rate and rhythm, lungs are equal and clear bilaterally head, neck, chest, abdomen are nontender to palpation, bilateral upper extremities are nontender to palpation warm, well-perfused neurovascular intact with normal range of motion. Bilateral lower extremities are warm, well-perfused neurovascularly intact. At the right side pelvis and hip area there is tenderness palpation and with any range of motion. Sepsis Sepsis Identified: No Narrative A/P Narrative: On exam patient seated in bed in no acute distress eating dinner. Pupils are PERRL with intact ocular motion, CN II through XII are grossly intact, mucous membranes are moist. Heart is normal rate and rhythm, lungs are equal and clear bilaterally head, neck, chest, abdomen are nontender to palpation, bilateral upper extremities are nontender to palpation warm, well-perfused neurovascular intact with normal range of motion. Bilateral lower extremities are warm, well- perfused, neurovascularly intact. At the right side pelvis and hip area there is tenderness palpation and with any range of motion. Plan of Treatment: Options were presented to the patient including nonsurgical and surgical. Nonsurgical consisting of splinting, pain medication carries risk of increased pain, increased risk of injury to adjacent structures including nerves and blood vessels, loss of range of motion and ambulation. Surgical option consisting of right hip intramedullary hip nail or TFNA. At this time patient is interested in surgery. Plan is for right hip TFNA to be performed semi-emergently with Dr. Cruz orthopedic surgeon and José Miguel LIZARRAGA. Surgical risks were explained the patient including but not limited to: Pain, bleeding, infection, injury to adjacent structures, need for further surgery, implant failure, stroke risk, cardiac complications including heart attack or [place], pulmonary complications including pneumonia or pulmonary embolism, anesthesia reactions and . Patient understands his risks and wishes to proceed with surgery. Time Spent With Patient Time: Total time spent is greater than 50% in coordination of care (as documented) at patient's floor/unit and/or counseling patient:
[2022-05-08] MEDS: DOCUSATE SODIUM 100 MG CAPSULE PO SCH (21:27)
[2022-05-08] MEDS: ZOLPIDEM 5 MG TABLET PO PRN (21:27)
[2022-05-08] MEDS: CYCLOBENZAPRINE 10 MG TABLET PO PRN (21:27)
[2022-05-08] MEDS: 0.9 % SODIUM CHLORIDE 10 ML SYRINGE IV SCH ×2 (21:28→21:46)
[2022-05-08] MEDS ORDERED: NICOTINE 21 MG PATCH TOPICAL ONE (21:41)
[2022-05-08] MEDS ORDERED: NICOTINE 21 MG PATCH ONE (22:26)
[2022-05-08] MEDS: SENNOSIDES 1 TABLET PO SCH (22:26)
[2022-05-09] MEDS: HYDROcodone/APAP 5/325MG TABLET PO PRN (03:50)
[2022-05-09] MEDS: 0.9 % SODIUM CHLORIDE 1,000 ML IV SCH ×3 (04:21→14:17)
[2022-05-09] MEDS: 0.9 % SODIUM CHLORIDE 10 ML SYRINGE IV SCH ×6 (06:38→20:06)
[2022-05-09 06:40] LABS: Basophils # (Auto) 0.04 K/mcL (0.00-0.30); Basophils % (Auto) 0.4 % (0.0-2.0); Eosinophils % (Auto) 1.1 % (0.0-7.0); Hematocrit 28.9 % (40.1-51.0); Hemoglobin 9.2 g/dL (13.7-17.5); Lymphocytes # (Auto) 1.24 K/mcL (1.50-4.80); Lymphocytes % (Auto) 13.7 % (15.5-49.0); Mean Cell Volume 104.3 fL (80.0-100.0); Mean Corpuscular HGB Conc 31.8 g/dL (31.0-36.0); Mean Platelet Volume 12.7 fL (8.8-12.5); Monocytes # (Auto) 1.13 K/mcL (0.10-0.90); Monocytes % (Auto) 12.5 % (1.0-12.0); Neutrophils % (Auto) 71.9 % (38.0-78.0); Platelet Count 149 K/mcL (140-440); RBC 2.77 M/mcL (4.63-6.08)
[2022-05-09 07:01] LABS: ALT/SGPT < 5 U/L (<40); AST/SGOT 11 U/L (<40); Albumin 2.8 gm/dL (3.2-5.2); Albumin/Globulin Ratio 1.6 (1.0-2.3); Alkaline Phosphatase 82 U/L (39-117); Bilirubin,Total 0.4 mg/dL (0.1-1.0); Blood Urea Nitrogen 10 mg/dL (6-20); Calcium 7.8 mg/dL (8.6-10.4); Carbon Dioxide 21 mmol/L (22-30); Chloride 107 mmol/L (96-108); Globulin 1.8 gm/dL (2.2-3.7); Glomerular Filtration Rate 94; Glucose 82 mg/dL (70-105)
[2022-05-09] MEDS ORDERED: ceFAZolin 2 GM in DEXTROSE 5% IN WATER 50 ML IV SCH ×2 (07:45→09:15)
[2022-05-09] MEDS ORDERED: HYDROcodone/APAP (PP) 7.5/325MG TABLET (#4) PO PRN (07:48)
[2022-05-09] MEDS ORDERED: ALBUTEROL SULFATE 200 PUFF INHALER INH PRN (07:48)
[2022-05-09] MEDS ORDERED: SCOPOLAMINE 1 PATCH PATCH TOPICAL PRN (08:00)
[2022-05-09] MEDS ORDERED: ceFAZolin 1 GM VIAL ONE (08:01)
--- NOTE | 2022-05-09 08:01 | XRay Report ---
CLINICAL INFORMATION: Dyspnea COMPARISON: 08/13/2020 TECHNIQUE: Portable FINDINGS: The heart size, mediastinum and pulmonary vessels are unremarkable. COPD changes with scattered fibrosis the mid and lower lungs appreciated. No acute disease. No effusions. IMPRESSION: COPD changes no acute disease Interpreted and Authenticated by: Moo Woods 05/09/22
[2022-05-09] MEDS ORDERED: LIDOCAINE HCL/PF 100 MG/5 ML SYRINGE IV ONE (08:20)
[2022-05-09] MEDS ORDERED: MAGNESIUM SULFATE 2 GM/50 ML BAG IV ONE (08:20)
[2022-05-09] MEDS ORDERED: ONDANSETRON 4 MG/2 ML VIAL ONE (08:20)
[2022-05-09] MEDS ORDERED: fentaNYL 100 MCG/2 ML VIAL IV ONE (08:20)
[2022-05-09] MEDS ORDERED: TRANEXAMIC ACID 1,000 MG/10 ML VIAL ONE (08:20)
[2022-05-09] MEDS ORDERED: DEXAMETHASONE 10 MG/ML VIAL ONE (08:20)
[2022-05-09] MEDS ORDERED: ROPIVACAINE HCL/PF 20 ML VIAL IJ ONE (08:20)
[2022-05-09] MEDS ORDERED: PROPOFOL 200 MG/20 ML VIAL IV ONE (08:20)
[2022-05-09] MEDS ORDERED: KETAMINE 50 MG/ML Syringe (ANEST) IV ONE (08:20)
[2022-05-09] MEDS ORDERED: IPRATROPIUM/ALBUTEROL 3 ML AMPUL.NEB NEB PRN (08:47)
[2022-05-09] MEDS ORDERED: ACETAMINOPHEN 1,000 MG/100 ML BAG IV ONE (08:47)
[2022-05-09] MEDS ORDERED: diphenhydrAMINE 50 MG/ML VIAL IV PRN (08:47)
[2022-05-09] MEDS ORDERED: MEPERIDINE 25 MG/ML VIAL IV PRN (08:47)
[2022-05-09] MEDS ORDERED: ONDANSETRON 4 MG/2 ML VIAL IV PRN (08:47)
[2022-05-09] MEDS ORDERED: PROMETHAZINE 25 MG/ML VIAL IV PRN (08:47)
[2022-05-09] MEDS ORDERED: LACTATED RINGERS 250 ML IV PRN (08:47)
[2022-05-09] MEDS ORDERED: NALOXONE HCL 0.4 MG/ML VIAL IV PRN (08:47)
[2022-05-09] MEDS ORDERED: LOSARTAN 50 MG TABLET PO SCH (09:00)
[2022-05-09] MEDS ORDERED: LACTATED RINGERS 1,000 ML IV SCH (09:00)
[2022-05-09] MEDS ORDERED: THIAMINE 100 MG TABLET PO SCH (09:00)
[2022-05-09] MEDS ORDERED: FOLIC ACID 1 MG TABLET PO SCH (09:00)
--- NOTE | 2022-05-09 09:06 | General Surgery Procedure Note ---
Date of procedure: Note initiated : 05/09/22 at 9:05 am Service Date, if different from initiated Date: [] Pre-op diagnosis: right hip intertroch fracture Post-op diagnosis: same Procedure: right hip tfna nail Findings: IT fracture Anesthesia: DAYSI Surgeon: Moo Cruz Ampoule Sealer: Kobe Briceño Estimated blood loss: 100 Pathology: none sent Condition: stable Disposition: PACU
[2022-05-09] MEDS ORDERED: FLEETS ADULT ENEMA PR PRN (09:07)
[2022-05-09] MEDS ORDERED: BISACODYL 10 MG SUPP.RECT PR PRN (09:07)
[2022-05-09] MEDS ORDERED: POLYETHYLENE GLYCOL 3350 17 GM PACKET PO PRN (09:07)
[2022-05-09] MEDS ORDERED: ONDANSETRON 4 MG ODT TABLET SL PRN (09:07)
[2022-05-09] MEDS ORDERED: morphine 4 MG/ML VIAL IV PRN (09:07)
[2022-05-09] MEDS ORDERED: MAGNESIUM HYDROXIDE 30 ML ORAL.SUSP PO PRN (09:07)
--- NOTE | 2022-05-09 09:07 | Discharge Plan ---
DC Instructions-General Patient Instructions Dressing Care: May shower in 2 days Discharge Plan Patient/Caregiver Discharge Instructions Activity: ambulate only with your walker and as per physical therapy Prescriptions: No Action albuterol sulfate [Ventolin HFA] 90 mcg/actuation HFA aerosol inhaler 2 puff INHALATION .Q4-6H PRN (Reason: wheezing and/or shortness of breath) Qty: 18 5RF pregabalin [Lyrica] 75 mg capsule 75 mg PO BID Qty: 60 2RF hydrocodone-acetaminophen 7.5-325 mg tablet 1 tab PO .COMPLEX PRN (Reason: pain) Qty: 120 0RF Rx Instructions: 1 tab orally q 6 hrs prn for pain. Max of 4/day. Must last 30 days. PRN; tamsulosin 0.4 mg capsule 0.4 mg PO QDAY oxygen 2 L as needed See Rx Instructions .ROUTE .COMPLEX Rx Instructions: Nasal as needed; omeprazole 20 mg capsule,delayed release(DR/EC) 20 mg PO QAM Dose Instruction: take 1 capsule by mouth once daily losartan 100 mg tablet 100 mg PO QDAY fluticasone propion-salmeterol [Advair Diskus] 250-50 mcg/dose blister with device 1 inh INHALATION BID Qty: 60 5RF ferrous sulfate 325 mg (65 mg iron) tablet 325 mg PO BID Qty: 60 2RF folic acid 1 mg Tablet 1 mg PO DAILY 60 Days Qty: 60 0RF thiamine HCl (vitamin B1) 100 mg tablet 100 mg PO QDAY Qty: 60 2RF sodium chloride 1 gram tablet 2,000 mg PO QDAY Follow Up Plan Follow up with: Moo Cruz MD [Physician] - Patient Disposition: Home, Self-Care Plan of Treatment: Options were presented to the patient including nonsurgical and surgical. Nonsurgical consisting of splinting, pain medication carries risk of increased pain, increased risk of injury to adjacent structures including nerves and blood vessels, loss of range of motion and ambulation. Surgical option consisting of right hip intramedullary hip nail or TFNA. At this time patient is interested in surgery. Plan is for right hip TFNA to be performed semi-emergently with Dr. Cruz orthopedic surgeon and José Miguel LIZARRAGA. Surgical risks were explained the patient including but not limited to: Pain, bleeding, infection, injury to adjacent structures, need for further surgery, implant failure, stroke risk, cardiac complications including heart attack or [place], pulmonary complications including pneumonia or pulmonary embolism, anesthesia reactions and . Patient understands his risks and wishes to proceed with surgery. Rehab Potential: Good I certify that the patient requires SNF services: No Overall status at discharge: patient is progressing back to baseline Discharge Orders: Discharge Order (Routine); Ordered 05/09/22 Ordered By: Moo Cruz Discharge Comment: cc: right hip fx s/p imn
[2022-05-09] MEDS: fentaNYL 100 MCG/2 ML VIAL IV PRN ×4 (09:22→09:44)
[2022-05-09] MEDS: HYDROmorphone 0.5 MG/0.5 ML SYRINGE IV PRN ×4 (09:47→22:38)
--- NOTE | 2022-05-09 09:58 | EKG ---
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
[2022-05-09] MEDS: LOSARTAN 50 MG TABLET PO SCH (10:32)
[2022-05-09] MEDS: CYCLOBENZAPRINE 10 MG TABLET PO PRN ×2 (10:39→19:19)
[2022-05-09] MEDS: LACTATED RINGERS 1,000 ML IV SCH ×3 (11:05→19:53)
--- NOTE | 2022-05-09 11:05 | Internal Med Progress Note ---
SUBJECTIVE Subjective Patient information: Note initiated : 05/09/22 at 11:02 am Service Date, if different from initiated Date: [] Patient: Artie Zavala 56 y/o M admitted on 05/08/22 for Fractur e/dislocation. Chief Complaint: [] Interval history: Mr. Zavala is a 56 year old M history of alcoholism, COPD, hypertensions, chronic back pain, presented with fall and resultant right intertrochanteric hip fracture. Patient was walking dog earlier today, being tripped by the dog leash, fell and unable to get up. He was sent by EMS to outside hospital, where he was found to have a right intertrochanteric hip fracture. Outside ER physicians contacted our orthopedic surgeon Dr. Cruz, who agreed to operate on the patient's. Admission request was called for medical management. Patient's is reported to be heavy drinker with daily drinks of at least 5 shots of hard liquor and last drink was earlier today. 05/09: CIWA score 4 earlier this morning. s/p right hip tfna nail placement by Dr. Cruz earlier this morning. Continue post-surgical care as per Dr. Cruz. PT evaluation and treatment for placement planning. Continue CIWA protocol for any potential alcohol withdrawal. Constitutional Vitals: Vital Signs Temp Pulse Resp BP Pulse Ox O2 Del Method O2 Flow Rate 37.1 C 78 15 146/101 96 6 05/09/22 10:08 05/09/22 10:14 05/09/22 10:14 05/09/22 10:14 05/09/22 10:14 05/09/22 10:08 05/09/22 09:26 Period Temp Pulse Resp BP Sys/Mata Pulse Ox O2 Del Method O2 Flow Rate Last 24 Hr 36.8 C-37.6 C 78-95 10- 107-177/90-149 91-100 Room Air- Simple Mask 6-6 Intake and Output 05/08/22 05/09/22 05/09/22 21:59 05:59 13:59 Intake Total 1737 2515 Output Total 400 650 Balance 1337 1865 Weight 64.864 kg 64.864 kg Patient Weight 05/10/22 05:59 Weight 64.864 kg Intake & Output: Intake & Output 05/08/22 05/09/22 05/09/22 21:59 05:59 13:59 Intake Total 1737 7615 Output Total 400 650 Balance 1337 1865 Weight 64.864 kg 64.864 kg Intake: IV 937 815 Sodium Chloride 0.9% 1,000 ml @ 937 665 100 mls/hr IV .Q10H JASON Rx#: [id number] Ancef 2 gm In Dextrose 5% in 50 Water 50 ml @ 100 mls/hr IV PREOP JASON Rx#:[id number] Oral 800 IV - Manual Only 1700 Output: Urine Catheter Amount 550 Void Amount 400 Estimated Blood Loss 100 Other: Urine Appearance Clear Clear Urine Color Dark Yellow Yellow Urine Odor Normal Head Head exam: Present atraumatic and normal inspection Eye Eye exam: Present normal appearance ENT ENT exam: Present mucous membranes moist, normal exam and normal external ear exam Neck Neck exam: Present normal inspection Respiratory Respiratory exam: Present normal respiratory exam Cardiovascular Cardiovascular exam: Present normal rate and rhythm GI/Abdominal GI/Abdominal exam: Present normal bowel sounds Extremities Exam Extremities exam: Present tenderness; Absent full ROM or normal inspection Additional comments: Right lateral hip covered by surgical dressing Back Exam Back exam: Present normal inspection Neurological Exam Neurological exam: Present alert and oriented X3 Skin Skin exam: Present intact and warm OBJ DATA Labs CBC & Chem 7: 05/09/22 05:16 05/09/22 05:16 Labs: Abnormal Lab Results 05/09/22 05/09/22 05:16 05:16 RBC 2.77 L Hgb 9.2 L Hct 28.9 L MCV 104.3 H RDW 15.0 H MPV 12.7 H Lymph % (Auto) 13.7 L [place] % (Auto) 12.5 H Lymph # (Auto) 1.24 L [place] # (Auto) 1.13 H Carbon Dioxide 21 L Calcium 7.8 L Total Protein 4.6 L Albumin 2.8 L Globulin 1.8 L Meds: Medications Acetaminophen (Acetaminophen 325 Mg Tablet) 650 mg PO Q6HP PRN; Protocol PRN Reason: Per Pain Protocol/Fever > 101 Hydrocodone Bitart/Acetaminophen (Hydrocodone/Apap 5/325mg Tablet) 1 tab PO Q4HP PRN; Protocol PRN Reason: Per Pain Protocol Last Admin: 05/09/22 03:50 Dose: 1 tab Hydrocodone Bitart/Acetaminophen (Hydrocodone/Apap 10/325mg Tablet) 0 tab PO Q4HP PRN; Protocol PRN Reason: Per Pain Protocol Albuterol Sulfate (Albuterol Sulfate 200 Puff Inhaler) 2 puff INH Q4-6HP PRN PRN Reason: wheezing and/or shortness of breath Albuterol/Ipratropium (Ipratropium/Albuterol 3 Ml Ampul.Neb) 3 ml NEB Q4HRT PRN PRN Reason: Wheezing Aspirin (Aspirin 81 Mg Tab.Chew) 81 mg PO BID JAS[facility] Bisacodyl (Bisacodyl 10 Mg Supp.Rect) 10 mg HI Q2-3DAYS PRN PRN Reason: Constipation Cefazolin Sodium (Cefazolin 1 Gm Vial) 2 gm IV Q8H [facility] Stop: 05/10/22 00:01 Clonidine HCl (Clonidine Hcl 0.1 Mg Tablet) 0.1 mg PO Q4HP PRN PRN Reason: ALC Cyclobenzaprine HCl (Cyclobenzaprine 10 Mg Tablet) 5 mg PO Q8HP PRN PRN Reason: Muscle Spasm Last Admin: 05/09/22 10:39 Dose: 5 mg Docusate Sodium (Docusate Sodium 100 Mg Capsule) 100 mg PO BID [facility] Last Admin: 05/08/22 21:27 Dose: 100 mg Docusate Sodium (Docusate Sodium 100 Mg Capsule) 100 mg PO BID [facility] Ferrous Sulfate (Ferrous Sulfate 325 Mg Tablet) 325 mg PO BID [facility] Folic Acid (Folic Acid 1 Mg Tablet) 1 mg PO DAILY [facility] Folic Acid (Folic Acid 1 Mg Tablet) 1 mg PO DAILY [facility] Haloperidol Lactate (Haloperidol Lactate 5 Mg/Ml Vial) 0.5 mg IV Q2HP PRN PRN Reason: Alcohol Withdrawal/Assess CIWA Hydralazine HCl (Hydralazine 20 Mg/Ml Vial) 10 mg IV Q4-6HP PRN PRN Reason: Hypertension Last Admin: 05/09/22 09:52 Dose: 10 mg Hydromorphone HCl (Hydromorphone 0.5 Mg/0.5 Ml Syringe) 0.5 mg IV Q4HP PRN; Protocol PRN Reason: Per Pain Protocol Last Admin: 05/09/22 10:12 Dose: 0.5 mg Sodium Chloride (Sodium Chloride 0.9%) 1,000 mls @ 100 mls/hr IV .Q10H [facility] Last Admin: 05/09/22 11:00 Dose: 100 mls/hr Cefazolin Sodium 2 gm/ (Dextrose) 50 mls @ 100 mls/hr IV PREOP JASON; Protocol Stop: 05/09/22 17:00 Last Infusion: 05/09/22 08:20 Dose: Infused Lactated Ringer's (Lactated Ringers) 1,000 mls @ 125 mls/hr IV .Q8H [facility] Iron Carb/Multivit/Java Lead Engineer/Folic Acid (Multivit,Ther Iron,Ca,Fa & Min 1 Tablet) 1 tab PO DAILY [facility] Lorazepam (Lorazepam 1 Mg Tablet) 0 mg PO Q4HP PRN; Protocol PRN Reason: Alcohol Withdrawal/Assess CIWA Losartan Potassium (Losartan 50 Mg Tablet) 100 mg PO DAILY [facility] Last Admin: 05/09/22 10:32 Dose: Not Given Losartan Potassium (Losartan 50 Mg Tablet) 100 mg PO DAILY [facility] Magnesium Hydroxide (Magnesium Hydroxide 30 Ml Oral.Susp) 30 ml PO BIDP PRN PRN Reason: Constipation Morphine Sulfate (Morphine 4 Mg/Ml Vial) 0 mg IV Q1HP PRN; Protocol PRN Reason: Per Pain Protocol Nicotine (Nicotine 21 Mg Patch) 21 mg TOPICAL DAILY@1000 [facility] Omeprazole (Omeprazole 20 Mg Capsule) 20 mg PO QAM [facility] Ondansetron HCl (Ondansetron 4 Mg/2 Ml Vial) 4 mg IV Q6HP PRN PRN Reason: Nausea And Vomiting Ondansetron HCl (Ondansetron 4 Mg Odt Tablet) 4 mg SL Q4HP PRN; Protocol PRN Reason: Nausea And Vomiting Polyethylene Glycol (Polyethylene Glycol 3350 17 Gm Packet) 17 gm PO DAILYP PRN PRN Reason: Constipation Pregabalin (Pregabalin 75 Mg Capsule) 75 mg PO BID [facility] Fluticasone/Salmeterol (Fluticasone/Salmeterol 250/50 Inhaler #14) 1 puff INH BID [facility] Senna (Sennosides 1 Tablet) 2 tab PO HS [facility] Last Admin: 05/08/22 22:26 Dose: Not Given Senna (Sennosides 1 Tablet) 2 tab PO HS [facility] Sodium Biphosphate/Sodium Phosphate (Fleets Adult Enema) 1 dose HI Q3-4DAYS PRN PRN Reason: Constipation Sodium Chloride (0.9 % Sodium Chloride 10 Ml Syringe) 10 ml IV Q8 [facility] Last Admin: 05/09/22 06:38 Dose: Not Given Sodium Chloride (0.9 % Sodium Chloride 10 Ml Syringe) 10 ml IV Q8 [facility] Last Admin: 05/09/22 06:38 Dose: Not Given Sodium Chloride (Sodium Chloride 1 Gm Tablet) 2 gm PO QDAY [facility] Tamsulosin HCl (Tamsulosin 0.4 Mg Capsule) 0.4 mg PO QDAY [facility] Thiamine HCl (Thiamine 100 Mg Tablet) 100 mg PO QDAY [facility] Thiamine HCl (Thiamine 100 Mg Tablet) 100 mg PO DAILY [facility] Zolpidem Tartrate (Zolpidem 5 Mg Tablet) 5 mg PO HSP PRN PRN Reason: Insomnia Last Admin: 05/08/22 21:27 Dose: 5 mg A/P Assessment and plan (1) Alcohol abuse: Status: Acute Comment: Root cause of all this patient's maladies (2) COPD (chronic obstructive pulmonary disease): Status: Chronic Qualifiers: COPD type: emphysema Emphysema type: unspecified Qualified Code(s): J43.9 - Emphysema, unspecified (3) Hypertension: Status: Chronic Qualifiers: Hypertension type: essential hypertension Qualified Code(s): I10 - Essential (primary) hypertension (4) Alcohol dependence: Status: Chronic Qualifiers: Substance use status: unspecified alcohol-induced disorder Qualified Code(s): F10.29 - Alcohol dependence with unspecified alcohol-induced disorder (5) Chronic back pain: Status: Acute (6) Fracture, intertrochanteric, right femur: Status: Acute (7) Cigarette smoker: Status: Acute Narrative A/P Narrative: Assessment and Plans: 1. Right intertrochanteric hip fracture: Inpatient med surg s/p right hip tfna nail placement by Dr. Cruz earlier this morning Physical therapy Tylenol [place] Dialudid IV 2. Alcohol dependence and abuse: Serum alcohol level [facility] protocol with PO Ativan Thiamine, folic acid, multivitamins satellite manager 3. Essential hypertension: Losartan Hydralazine 10mg IV q4-6hr PRN SBP>=180 and/or DBP>=110mmHg Treat right hip pain, see #1 4. COPD: Continue bronchodilators from home regimen 5. Chronic back pain: [place] 6. Cigarette smoker: Nicotine replacement therapy GI ppx: oral PPI DVT ppx: SCDs Code status: Full Prognosis: guarded Disposition: inpatient med surg Plan of Treatment: Options were presented to the patient including nonsurgical and surgical. Nonsurgical consisting of splinting, pain medication carries risk of increased pain, increased risk of injury to adjacent structures including nerves and blood vessels, loss of range of motion and ambulation. Surgical option consisting of right hip intramedullary hip nail or TFNA. At this time patient is interested in surgery. Plan is for right hip TFNA to be performed semi-emergently with Dr. Cruz orthopedic surgeon and José Miguel LIZARRAGA. Surgical risks were explained the patient including but not limited to: Pain, bleeding, infection, injury to adjacent structures, need for further surgery, implant failure, stroke risk, cardiac complications including heart attack or [place], pulmonary complications including pneumonia or pulmonary embolism, anesthesia reactions and . Patient understands his risks and wishes to proceed with surgery. Time Spent With Patient Time: Total time spent is greater than 50% in coordination of care (as documented) at patient's floor/unit and/or counseling patient: QUALITY VTE Deep Vein Thrombosis/Pulmonary Embolism Present on Admission: No
[2022-05-09] MEDS: THIAMINE 100 MG TABLET PO SCH (11:06)
[2022-05-09] MEDS: NICOTINE 21 MG PATCH TOPICAL SCH (11:16)
[2022-05-09] MEDS: OMEPRAZOLE 20 MG CAPSULE PO SCH (11:17)
[2022-05-09] MEDS: DOCUSATE SODIUM 100 MG CAPSULE PO SCH ×2 (11:17→20:05)
[2022-05-09] MEDS: PREGABALIN 75 MG CAPSULE PO SCH ×2 (11:17→20:05)
[2022-05-09] MEDS: FERROUS SULFATE 325 MG TABLET PO SCH ×2 (11:18→20:05)
[2022-05-09] MEDS: TAMSULOSIN 0.4 MG CAPSULE PO SCH (11:18)
[2022-05-09] MEDS: MULTIVIT,THER IRON,CA,FA & MIN 1 TABLET PO SCH (11:18)
[2022-05-09] MEDS: FOLIC ACID 1 MG TABLET PO SCH (11:19)
[2022-05-09] MEDS: SODIUM CHLORIDE 1 GM TABLET PO SCH ×2 (11:19→11:49)
[2022-05-09] MEDS: FLUTICASONE/SALMETEROL 250/50 INHALER #14 INH SCH ×2 (11:49→20:15)
--- NOTE | 2022-05-09 13:09 | Internal Med Progress Note ---
SUBJECTIVE Subjective Patient information: Note initiated : 05/09/22 at 1:08 pm Service Date, if different from initiated Date: [] Patient: Artie Zavala 56 y/o M admitted on 05/08/22 for Fracture /dislocation. Chief Complaint: [] Interval history: 05/10 CIWA scores improved, main issue is pain with ambulation. Discussed possible discharge tomorrow if pain is adequately controlled on oral medications. Patient says he did use a walker at home prior to this admission. Hemoglobin was 7.2, will repeat hemoglobin this afternoon. Physical exam Head: Atraumatic, normal inspection. Eyes: normal appearance, no scleral icterus. Neck: full ROM Respiratory: no respiratory distress. Cardiovascular: normal rate and rhythm, S1, S2. GI/Abdominal: soft, nontender, no guarding. Extremities: Right hip covered with slightly bloody but otherwise clean bandages.. Neurological: CN II-XII intact, intact motor, intact sensation. Psychiatric: normal mood. Skin: warm, normal color Constitutional Vitals: Vital Signs Temp Pulse Resp BP Pulse Ox O2 Del Method O2 Flow Rate 98.7 F 78 15 146/101 96 6 05/09/22 10:08 05/09/22 10:14 05/09/22 10:14 05/09/22 10:14 05/09/22 10:14 05/09/22 10:08 05/09/22 09:26 Period Temp Pulse Resp BP Sys/Mata Pulse Ox O2 Del Method O2 Flow Rate Last 24 Hr 98.2 F-99.7 F 78-95 10-21 107-177/90-149 91-100 Room Air- Simple Mask 6-6 Intake and Output 05/08/22 05/09/22 05/09/22 21:59 05:59 13:59 Intake Total 1737 2515 Output Total 400 650 Balance 1337 1865 Weight 64.864 kg 64.864 kg Patient Weight 05/10/22 05:59 Weight 64.864 kg Intake & Output: Intake & Output 05/08/22 05/09/22 05/09/22 21:59 05:59 13:59 Intake Total 1737 2515 Output Total 400 650 Balance 1337 1865 Weight 64.864 kg 64.864 kg Intake: IV 937 815 Sodium Chloride 0.9% 1,000 ml @ 937 665 100 mls/hr IV .Q10H [facility] Rx#: [id number] Ancef 2 gm In Dextrose 5% in 50 Water 50 ml @ 100 mls/hr IV PREOP [facility] Rx#:[id number] Oral 800 IV - Manual Only 1700 Output: Urine Catheter Amount 550 Void Amount 400 Estimated Blood Loss 100 Other: Urine Appearance Clear Clear Urine Color Dark Yellow Yellow Urine Odor Normal OBJ DATA Labs CBC & Chem 7: 05/10/22 05:03 05/09/22 05:16 Labs: Abnormal Lab Results 05/09/22 05/09/22 05:16 05:16 RBC 2.77 L Hgb 9.2 L Hct 28.9 L MCV 104.3 H RDW 15.0 H MPV 12.7 H Lymph % (Auto) 13.7 L [place] % (Auto) 12.5 H Lymph # (Auto) 1.24 L [place] # (Auto) 1.13 H Carbon Dioxide 21 L Calcium 7.8 L Total Protein 4.6 L Albumin 2.8 L Globulin 1.8 L Meds: Medications Acetaminophen (Acetaminophen 325 Mg Tablet) 650 mg PO Q6HP PRN; Protocol PRN Reason: Per Pain Protocol/Fever > 101 Hydrocodone Bitart/Acetaminophen (Hydrocodone/Apap 5/325mg Tablet) 1 tab PO Q4HP PRN; Protocol PRN Reason: Per Pain Protocol Last Admin: 05/09/22 03:50 Dose: 1 tab Hydrocodone Bitart/Acetaminophen (Hydrocodone/Apap 10/325mg Tablet) 0 tab PO Q4HP PRN; Protocol PRN Reason: Per Pain Protocol Albuterol Sulfate (Albuterol Sulfate 200 Puff Inhaler) 2 puff INH Q4-6HP PRN PRN Reason: wheezing and/or shortness of breath Albuterol/Ipratropium (Ipratropium/Albuterol 3 Ml Ampul.Neb) 3 ml NEB Q4HRT PRN PRN Reason: Wheezing Aspirin (Aspirin 81 Mg Tab.Chew) 81 mg PO BID JASON Bisacodyl (Bisacodyl 10 Mg Supp.Rect) 10 mg [place] Q2-3DAYS PRN PRN Reason: Constipation Cefazolin Sodium (Cefazolin 1 Gm Vial) 2 gm IV Q8H [facility] Stop: 05/10/22 00:01 Clonidine HCl (Clonidine Hcl 0.1 Mg Tablet) 0.1 mg PO Q4HP PRN PRN Reason: ALC Cyclobenzaprine HCl (Cyclobenzaprine 10 Mg Tablet) 5 mg PO Q8HP PRN PRN Reason: Muscle Spasm Last Admin: 05/09/22 10:39 Dose: 5 mg Docusate Sodium (Docusate Sodium 100 Mg Capsule) 100 mg PO BID [facility] Last Admin: 05/09/22 11:17 Dose: 100 mg Docusate Sodium (Docusate Sodium 100 Mg Capsule) 100 mg PO BID [facility] Ferrous Sulfate (Ferrous Sulfate 325 Mg Tablet) 325 mg PO BID [facility] Last Admin: 05/09/22 11:18 Dose: 325 mg Folic Acid (Folic Acid 1 Mg Tablet) 1 mg PO DAILY [facility] Last Admin: 05/09/22 11:19 Dose: 1 mg Folic Acid (Folic Acid 1 Mg Tablet) 1 mg PO DAILY [facility] Last Admin: 05/09/22 11:05 Dose: Not Given Haloperidol Lactate (Haloperidol Lactate 5 Mg/Ml Vial) 0.5 mg IV Q2HP PRN PRN Reason: Alcohol Withdrawal/Assess CIWA Hydralazine HCl (Hydralazine 20 Mg/Ml Vial) 10 mg IV Q4-6HP PRN PRN Reason: Hypertension Last Admin: 05/09/22 09:52 Dose: 10 mg Hydromorphone HCl (Hydromorphone 0.5 Mg/0.5 Ml Syringe) 0.5 mg IV Q4HP PRN; Protocol PRN Reason: Per Pain Protocol Last Admin: 05/09/22 10:12 Dose: 0.5 mg Sodium Chloride (Sodium Chloride 0.9%) 1,000 mls @ 100 mls/hr IV .Q10H [facility] Last Admin: 05/09/22 11:00 Dose: 100 mls/hr Cefazolin Sodium 2 gm/ (Dextrose) 50 mls @ 100 mls/hr IV PREOP JASON; Protocol Stop: 05/09/22 17:00 Last Infusion: 05/09/22 08:20 Dose: Infused Lactated Ringer's (Lactated Ringers) 1,000 mls @ 125 mls/hr IV .Q8H [facility] Last Admin: 05/09/22 11:05 Dose: Not Given Iron Carb/Multivit/Dredge Pump Operator/Folic Acid (Multivit,Ther Iron,Ca,Fa & Min 1 Tablet) 1 tab PO DAILY [facility] Last Admin: 05/09/22 11:18 Dose: 1 tab Lorazepam (Lorazepam 1 Mg Tablet) 0 mg PO Q4HP PRN; Protocol PRN Reason: Alcohol Withdrawal/Assess CIWA Losartan Potassium (Losartan 50 Mg Tablet) 100 mg PO DAILY [facility] Last Admin: 05/09/22 10:32 Dose: Not Given Losartan Potassium (Losartan 50 Mg Tablet) 100 mg PO DAILY [facility] Last Admin: 05/09/22 11:19 Dose: 100 mg Magnesium Hydroxide (Magnesium Hydroxide 30 Ml Oral.Susp) 30 ml PO BIDP PRN PRN Reason: Constipation Morphine Sulfate (Morphine 4 Mg/Ml Vial) 0 mg IV Q1HP PRN; Protocol PRN Reason: Per Pain Protocol Nicotine (Nicotine 21 Mg Patch) 21 mg TOPICAL DAILY@1000 [facility] Last Admin: 05/09/22 11:16 Dose: 21 mg Omeprazole (Omeprazole 20 Mg Capsule) 20 mg PO QAM [facility] Last Admin: 05/09/22 11:17 Dose: 20 mg Ondansetron HCl (Ondansetron 4 Mg/2 Ml Vial) 4 mg IV Q6HP PRN PRN Reason: Nausea And Vomiting Ondansetron HCl (Ondansetron 4 Mg Odt Tablet) 4 mg SL Q4HP PRN; Protocol PRN Reason: Nausea And Vomiting Polyethylene Glycol (Polyethylene Glycol 3350 17 Gm Packet) 17 gm PO DAILYP PRN PRN Reason: Constipation Pregabalin (Pregabalin 75 Mg Capsule) 75 mg PO BID [facility] Last Admin: 05/09/22 11:17 Dose: 75 mg Fluticasone/Salmeterol (Fluticasone/Salmeterol 250/50 Inhaler #14) 1 puff INH BID [facility] Last Admin: 05/09/22 11:49 Dose: Not Given Senna (Sennosides 1 Tablet) 2 tab PO HS [facility] Last Admin: 05/08/22 22:26 Dose: Not Given Senna (Sennosides 1 Tablet) 2 tab PO HS [facility] Sodium Biphosphate/Sodium Phosphate (Fleets Adult Enema) 1 dose [place] Q3-4DAYS PRN PRN Reason: Constipation Sodium Chloride (0.9 % Sodium Chloride 10 Ml Syringe) 10 ml IV Q8 [facility] Last Admin: 05/09/22 06:38 Dose: Not Given Sodium Chloride (0.9 % Sodium Chloride 10 Ml Syringe) 10 ml IV Q8 [facility] Last Admin: 05/09/22 06:38 Dose: Not Given Sodium Chloride (Sodium Chloride 1 Gm Tablet) 2 gm PO QDAY [facility] Last Admin: 05/09/22 11:49 Dose: Not Given Tamsulosin HCl (Tamsulosin 0.4 Mg Capsule) 0.4 mg PO QDAY [facility] Last Admin: 05/09/22 11:18 Dose: 0.4 mg Thiamine HCl (Thiamine 100 Mg Tablet) 100 mg PO QDAY [facility] Last Admin: 05/09/22 11:06 Dose: Not Given Thiamine HCl (Thiamine 100 Mg Tablet) 100 mg PO DAILY [facility] Last Admin: 05/09/22 11:18 Dose: 100 mg Zolpidem Tartrate (Zolpidem 5 Mg Tablet) 5 mg PO HSP PRN PRN Reason: Insomnia Last Admin: 05/08/22 21:27 Dose: 5 mg A/P Narrative A/P Narrative: Assessment and Plans: 1. Right intertrochanteric hip fracture: Inpatient med surg s/p right hip tfna nail placement by Dr. Cruz 05/09 Physical therapy Tylenol [place] Dialudid IV, wean as tolerated 2. 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 Essential hypertension: Losartan Hydralazine 10mg IV q4-6hr PRN SBP>=180 and/or DBP>=110mmHg Treat right hip pain, see #1 4. COPD: Continue bronchodilators from home regimen 5. Chronic back pain: [place] 6. Cigarette smoker: Nicotine replacement therapy GI ppx: oral PPI DVT ppx: Aspirin 81 mg twice daily Code status: Full Disposition: Probably home tomorrow. Plan of Treatment: Time Spent With Patient Time: Total time spent is greater than 50% in coordination of care (as documented) at patient's floor/unit and/or counseling patient: QUALITY VTE Deep Vein Thrombosis/Pulmonary Embolism Present on Admission: No
--- NOTE | 2022-05-09 13:11 | XRay Report ---
CLINICAL INFORMATION: Right intertrochanteric hip fracture COMPARISON: 02/22/2022. FINDINGS: Oblique right intertrochanteric fracture is transfixed by gamma nail. Alignment is anatomic. Mild degeneration seen in both SI and hip joints-stable. Soft tissue swelling over the surgical site. IMPRESSION: ORIF right intertrochanteric fracture-anatomic alignment Interpreted and Authenticated by: Moo Woods 05/09/22
[2022-05-09] MEDS: HYDROcodone/APAP 10/325MG TABLET PO PRN ×2 (13:17→19:19)
--- NOTE | 2022-05-09 13:17 | XRay Report ---
CLINICAL INFORMATION: Right intertrochanteric hip fracture COMPARISON: 02/22/2022. FINDINGS: Digital films from the OR show oblique right intertrochanteric fracture is transfixed by gamma nail. Alignment is anatomic. Mild degeneration seen in both SI and hip joints-stable. Soft tissue swelling over the surgical site. IMPRESSION: ORIF right intertrochanteric fracture-anatomic alignment. Total fluoroscopy time 0.5 minutes. Interpreted and Authenticated by: Moo Woods 05/09/22
[2022-05-09] MEDS: ceFAZolin 1 GM VIAL IV SCH ×2 (16:20→23:04)
[2022-05-09] MEDS: SENNOSIDES 1 TABLET PO SCH ×2 (20:05→20:06)
[2022-05-09] MEDS: ASPIRIN 81 MG TAB.CHEW PO SCH (20:05)
[2022-05-09] MEDS: ZOLPIDEM 5 MG TABLET PO PRN (22:38)
[2022-05-10] MEDS: HYDROcodone/APAP 10/325MG TABLET PO PRN ×4 (01:01→19:44)
[2022-05-10] MEDS: LACTATED RINGERS 1,000 ML IV SCH (03:34)
[2022-05-10] MEDS: 0.9 % SODIUM CHLORIDE 10 ML SYRINGE IV SCH ×3 (04:55→22:04)
[2022-05-10 06:34] LABS: Hematocrit 22.4 % (40.1-51.0); Hemoglobin 7.2 g/dL (13.7-17.5)
[2022-05-10] MEDS: CYCLOBENZAPRINE 10 MG TABLET PO PRN ×2 (07:59→19:45)
[2022-05-10] MEDS: SODIUM CHLORIDE 1 GM TABLET PO SCH (08:01)
[2022-05-10] MEDS: ASPIRIN 81 MG TAB.CHEW PO SCH ×2 (08:02→21:29)
[2022-05-10] MEDS: TAMSULOSIN 0.4 MG CAPSULE PO SCH (08:02)
[2022-05-10] MEDS: FERROUS SULFATE 325 MG TABLET PO SCH ×2 (08:02→21:29)
[2022-05-10] MEDS: FOLIC ACID 1 MG TABLET PO SCH (08:02)
[2022-05-10] MEDS: FLUTICASONE/SALMETEROL 250/50 INHALER #14 INH SCH ×2 (08:02→22:22)
[2022-05-10] MEDS: MULTIVIT,THER IRON,CA,FA & MIN 1 TABLET PO SCH (08:02)
[2022-05-10] MEDS: OMEPRAZOLE 20 MG CAPSULE PO SCH (08:02)
[2022-05-10] MEDS: PREGABALIN 75 MG CAPSULE PO SCH ×2 (08:02→21:29)
[2022-05-10] MEDS: LOSARTAN 50 MG TABLET PO SCH (08:02)
[2022-05-10] MEDS: THIAMINE 100 MG TABLET PO SCH (08:03)
--- NOTE | 2022-05-10 09:21 | Orthopedic Progress Note ---
SUBJECTIVE Subjective Patient information: Note initiated : 05/10/22 at 9:13 am Service Date, if different from initiated Date: [] Patient: Artie Zavala 56 y/o M admitted on 05/08/22 for Fracture /dislocation. Chief Complaint: [s/p right im hip nail ] Pertinent ROS: 10 point reviewed and are negative except where mentioned Constitutional Vitals: Vital Signs Temp Pulse Resp BP Pulse Ox O2 Del Method O2 Flow Rate 98.8 F 83 20 147/92 98 6 05/10/22 07:44 05/10/22 07:44 05/10/22 07:44 05/10/22 07:44 05/10/22 07:44 05/10/22 07:44 05/09/22 09:26 Period Temp Pulse Resp BP Sys/Mata Pulse Ox O2 Del Method O2 Flow Rate Last 24 Hr 97.3 F-98.8 F 78-103 05-16 99-177/74-149 91-100 Room Air- Simple Mask 6-6 Intake and Output 05/09/22 05/10/22 05/10/22 21:59 05:59 13:59 Intake Total 600 2960 480 Output Total 1125 1700 700 Balance -525 1260 -220 Weight 149 lb 11.2 oz Intake & Output: Intake & Output 05/09/22 05/10/22 05/10/22 21:59 05:59 13:59 Intake Total 600 2960 480 Output Total 1125 1700 700 Balance -525 1260 -220 Weight 149 lb 11.2 oz Intake: IV 960 Lactated Ringers 1,000 ml @ 125 960 mls/hr IV .Q8H [facility] Rx#: [id number] Oral 600 2000 480 Output: Void Amount 1125 1700 700 Other: Meal Dinner Breakfast Percent of Meal Consumed 100% 75% Urine Appearance Clear Clear Clear Urine Color Yellow Pale Pale Urine Odor Normal # Voids 1 OBJ DATA Labs CBC & Chem 7: 05/10/22 05:03 05/09/22 05:16 Labs: Abnormal Lab Results 05/10/22 05/09/22 05/09/22 05:03 05:16 05:16 RBC 2.77 L Hgb 7.2 L 9.2 L Hct 22.4 L 28.9 L MCV 104.3 H RDW 15.0 H MPV 12.7 H Lymph % (Auto) 13.7 L [place] % (Auto) 12.5 H Lymph # (Auto) 1.24 L [place] # (Auto) 1.13 H Carbon Dioxide 21 L Calcium 7.8 L Total Protein 4.6 L Albumin 2.8 L Globulin 1.8 L Meds: Medications Acetaminophen (Acetaminophen 325 Mg Tablet) 650 mg PO Q6HP PRN; Protocol PRN Reason: Per Pain Protocol/Fever > 101 Hydrocodone Bitart/Acetaminophen (Hydrocodone/Apap 10/325mg Tablet) 0 tab PO Q4HP PRN; Protocol PRN Reason: Per Pain Protocol Last Admin: 05/10/22 08:03 Dose: 2 tab Albuterol Sulfate (Albuterol Sulfate 200 Puff Inhaler) 2 puff INH Q4-6HP PRN PRN Reason: wheezing and/or shortness of breath Albuterol/Ipratropium (Ipratropium/Albuterol 3 Ml Ampul.Neb) 3 ml NEB Q4HRT PRN PRN Reason: Wheezing Aspirin (Aspirin 81 Mg Tab.Chew) 81 mg PO BID [facility] Last Admin: 05/10/22 08:02 Dose: 81 mg Bisacodyl (Bisacodyl 10 Mg Supp.Rect) 10 mg [place] Q2-3DAYS PRN PRN Reason: Constipation Clonidine HCl (Clonidine Hcl 0.1 Mg Tablet) 0.1 mg PO Q4HP PRN PRN Reason: ALC Cyclobenzaprine HCl (Cyclobenzaprine 10 Mg Tablet) 5 mg PO Q8HP PRN PRN Reason: Muscle Spasm Last Admin: 05/10/22 07:59 Dose: 5 mg Docusate Sodium (Docusate Sodium 100 Mg Capsule) 100 mg PO BID [facility] Last Admin: 05/09/22 20:05 Dose: 100 mg Ferrous Sulfate (Ferrous Sulfate 325 Mg Tablet) 325 mg PO BID [facility] Last Admin: 05/10/22 08:02 Dose: 325 mg Folic Acid (Folic Acid 1 Mg Tablet) 1 mg PO DAILY [facility] Last Admin: 05/10/22 08:02 Dose: 1 mg Haloperidol Lactate (Haloperidol Lactate 5 Mg/Ml Vial) 0.5 mg IV Q2HP PRN PRN Reason: Alcohol Withdrawal/Assess CIWA Hydralazine HCl (Hydralazine 20 Mg/Ml Vial) 10 mg IV Q4-6HP PRN PRN Reason: Hypertension Last Admin: 05/09/22 09:52 Dose: 10 mg Hydromorphone HCl (Hydromorphone 0.5 Mg/0.5 Ml Syringe) 0.5 mg IV Q4HP PRN; Protocol PRN Reason: Per Pain Protocol Last Admin: 05/09/22 22:38 Dose: 0.5 mg Iron Carb/Multivit/[place]/Folic Acid (Multivit,Ther Iron,Ca,Fa & Min 1 Tablet) 1 tab PO DAILY [facility] Last Admin: 05/10/22 08:02 Dose: 1 tab Lorazepam (Lorazepam 1 Mg Tablet) 0 mg PO Q4HP PRN; Protocol PRN Reason: Alcohol Withdrawal/Assess CIWA Losartan Potassium (Losartan 50 Mg Tablet) 100 mg PO DAILY [facility] Last Admin: 05/10/22 08:02 Dose: 100 mg Magnesium Hydroxide (Magnesium Hydroxide 30 Ml Oral.Susp) 30 ml PO BIDP PRN PRN Reason: Constipation Morphine Sulfate (Morphine 4 Mg/Ml Vial) 0 mg IV Q1HP PRN; Protocol PRN Reason: Per Pain Protocol Nicotine (Nicotine 21 Mg Patch) 21 mg TOPICAL DAILY@1000 [facility] Last Admin: 05/09/22 11:16 Dose: 21 mg Omeprazole (Omeprazole 20 Mg Capsule) 20 mg PO QAM [facility] Last Admin: 05/10/22 08:02 Dose: 20 mg Ondansetron HCl (Ondansetron 4 Mg Odt Tablet) 4 mg SL Q4HP PRN; Protocol PRN Reason: Nausea And Vomiting Polyethylene Glycol (Polyethylene Glycol 3350 17 Gm Packet) 17 gm PO DAILYP PRN PRN Reason: Constipation Last Admin: 05/10/22 03:53 Dose: 17 gm Pregabalin (Pregabalin 75 Mg Capsule) 75 mg PO BID [facility] Last Admin: 05/10/22 08:02 Dose: 75 mg Fluticasone/Salmeterol (Fluticasone/Salmeterol 250/50 Inhaler #14) 1 puff INH BID [facility] Last Admin: 05/10/22 08:02 Dose: 1 puff Senna (Sennosides 1 Tablet) 2 tab PO HS [facility] Last Admin: 05/09/22 20:06 Dose: Not Given Sodium Biphosphate/Sodium Phosphate (Fleets Adult Enema) 1 dose [place] Q3-4DAYS PRN PRN Reason: Constipation Sodium Chloride (0.9 % Sodium Chloride 10 Ml Syringe) 10 ml IV Q8 [facility] Last Admin: 05/10/22 04:55 Dose: Not Given Sodium Chloride (Sodium Chloride 1 Gm Tablet) 2 gm PO QDAY [facility] Last Admin: 05/10/22 08:01 Dose: 2 gm Tamsulosin HCl (Tamsulosin 0.4 Mg Capsule) 0.4 mg PO QDAY [facility] Last Admin: 05/10/22 08:02 Dose: 0.4 mg Thiamine HCl (Thiamine 100 Mg Tablet) 100 mg PO QDAY [facility] Last Admin: 05/10/22 08:03 Dose: 100 mg Zolpidem Tartrate (Zolpidem 5 Mg Tablet) 5 mg PO HSP PRN PRN Reason: Insomnia Last Admin: 05/09/22 22:38 Dose: 5 mg A/P Narrative Plan of Treatment: Patient seen and examined this am, awake alert conversant eager for discharge. has some expected post op pain but feels it is well managed on current regimen dressing at RLE clean and dry some peeling will order reinforcement, both LE are warm well perfused neuro intact with intact ankle motion to testing. Patient endorses occasional ambulation with walker/ PT assistance. Labwork notable for Hemoglobin 7.3, however he is asymptomatic, denies SOB, palpitations, fatigue. Stable form orthopedic standpoint will defer final dispo to attending hospitalist. Plan is for expected discharge tomorrow to home with follow up at [facility] in 10-14 days. PT/ OT pain control WB as tolerated with walker for assistance Time Spent With Patient Time: Total time spent is greater than 50% in coordination of care (as documented) at patient's floor/unit and/or counseling patient:
[2022-05-10] MEDS: DOCUSATE SODIUM 100 MG CAPSULE PO SCH ×2 (10:11→21:29)
[2022-05-10] MEDS: NICOTINE 21 MG PATCH TOPICAL SCH (10:12)
[2022-05-10] MEDS: HYDROmorphone 0.5 MG/0.5 ML SYRINGE IV PRN (11:20)
[2022-05-10] MEDS: SENNOSIDES 1 TABLET PO SCH (21:29)
[2022-05-11] MEDS: HYDROcodone/APAP 10/325MG TABLET PO PRN ×3 (00:43→09:21)
[2022-05-11] MEDS: 0.9 % SODIUM CHLORIDE 10 ML SYRINGE IV SCH (05:14)
[2022-05-11] MEDS: CYCLOBENZAPRINE 10 MG TABLET PO PRN (05:34)
[2022-05-11 06:53] LABS: Hematocrit 26.1 % (40.1-51.0); Hemoglobin 8.3 g/dL (13.7-17.5)
[2022-05-11] MEDS: TAMSULOSIN 0.4 MG CAPSULE PO SCH (07:26)
[2022-05-11] MEDS: SODIUM CHLORIDE 1 GM TABLET PO SCH (07:26)
[2022-05-11] MEDS: PREGABALIN 75 MG CAPSULE PO SCH (07:26)
[2022-05-11] MEDS: OMEPRAZOLE 20 MG CAPSULE PO SCH (07:26)
[2022-05-11] MEDS: FOLIC ACID 1 MG TABLET PO SCH (07:27)
[2022-05-11] MEDS: MULTIVIT,THER IRON,CA,FA & MIN 1 TABLET PO SCH (07:27)
[2022-05-11] MEDS: ASPIRIN 81 MG TAB.CHEW PO SCH (07:27)
[2022-05-11] MEDS: LOSARTAN 50 MG TABLET PO SCH (07:27)
[2022-05-11] MEDS: FERROUS SULFATE 325 MG TABLET PO SCH (07:27)
[2022-05-11] MEDS: DOCUSATE SODIUM 100 MG CAPSULE PO SCH (07:28)
[2022-05-11] MEDS: FLUTICASONE/SALMETEROL 250/50 INHALER #14 INH SCH (07:28)
[2022-05-11] MEDS: THIAMINE 100 MG TABLET PO SCH (07:28)
[2022-05-11] MEDS: NICOTINE 21 MG PATCH TOPICAL SCH ×2 (07:38→08:35)
--- NOTE | 2022-05-11 08:29 | Discharge Summary ---
Discharge Provider Provider IMPORTANT FOLLOW-UP INFORMATION FOR PCP: Patient information: Note initiated : 05/11/22 at 8:27 am Service Date, if different from initiated Date: [] Patient: Artie Zavala 56 y/o M admitted on 05/08/22 for Fracture/dislocation. Chief Complaint: [] Date of admission: 05/08/22 17:46 Discharge date: 05/11/22 Primary care physician: JASPREET Wall Consults: 05/08/22 17:46 Consult to Physician [CONS] Routine Comment: Consulting Provider: Manuel Rogers Reason For Exam: Physician to Consult 05/08/22 17:48 Consult to Physician [CONS] Routine Comment: Consulting Provider: Moo Cruz Reason For Exam: Physician to Consult COURSE Hospital Course Hospital course: Mr. Zavala is a 56 year old M history of alcoholism, COPD, hypertensions, chronic back pain, presented with fall and resultant right intertrochanteric hip fracture. Patient was walking dog earlier today, being tripped by the dog leash, fell and unable to get up. He was sent by EMS to outside hospital, where he was found to have a right intertrochanteric hip fracture. Outside ER physicians contacted our orthopedic surgeon Dr. Cruz, who agreed to operate on the patient's. Admission request was called for medical management. Patient's is reported to be heavy drinker with daily drinks of at least 5 shots of hard liquor and last drink was earlier today. 05/09: CIWA score 4 earlier this morning. s/p right hip tfna nail placement by Dr. Cruz earlier this morning. Continue post-surgical care as per Dr. Cruz. PT evaluation and treatment for placement planning. Continue CIWA protocol for any potential alcohol withdrawal. 05/10 CIWA scores improved, main issue is pain with ambulation. Discussed possible discharge tomorrow if pain is adequately controlled on oral medications. Patient says he did use a walker at home prior to this admission. Hemoglobin was 7.2, will repeat hemoglobin this afternoon. 05/11 Vitals stable overnight, hemoglobin improving. Alcohol withdrawal resolved. Discharged to home with outpatient physical therapy. Follow-up with orthopedic surgery in clinic. Physical exam Head: Atraumatic, normal inspection. Eyes: normal appearance, no scleral icterus. Neck: full ROM Respiratory: no respiratory distress. Cardiovascular: normal rate and rhythm, S1, S2. GI/Abdominal: soft, nontender, no guarding. Extremities: Right hip covered with slightly bloody but otherwise clean bandages.. Neurological: CN II-XII intact, intact motor, intact sensation. Psychiatric: normal mood. Skin: warm, normal color Discharge diagnosis: Right intertrochanteric femur fracture Secondary discharge diagnosis: Alcohol withdrawal Time Spent with Patient Time attestation: Total time spent providing and/or coordinating discharge services: Time spent: Less than 30 minutes EXAM Constitutional Vitals: Temp Pulse Resp BP Pulse Ox O2 Del Method O2 Flow Rate 98.4 F 88 16 144/97 100 6 05/11/22 06:57 05/11/22 06:57 05/11/22 06:57 05/11/22 06:57 05/11/22 06:57 05/11/22 06:57 05/09/22 09:26 Discharge Data Data Completed and Pending Labs on day of discharge: Labs from last 24 hours 05/11/22 05/10/22 05:27 15:57 Hgb 8.3 L 7.3 L Hct 26.1 L Discharge Plan Patient/Caregiver Discharge Instructions Activity: ambulate only with your walker and as per physical therapy Diet: Regular Diet Prescriptions: New hydrocodone-acetaminophen 10-325 mg tablet 1 - 2 tab PO Q4H PRN (Reason: Pain) Qty: 60 0RF aspirin [Dory Low Dose Aspirin] 81 mg tablet,delayed release (DR/EC) 81 mg PO BID Qty: 30 0RF docusate sodium 100 mg Capsule 100 mg PO BID 7 Days Qty: 14 2RF polyethylene glycol 3350 [HealthyLax] 17 gram Powder In Packet 17 g PO DAILYP PRN (Reason: Constipation) Qty: 30 0RF sennosides [Senna Lax] 8.6 mg Tablet 17.2 mg PO HS 7 Days Qty: 14 0RF thiamine mononitrate (vit B1) 100 mg Tablet 100 mg PO QDAY 60 Days Qty: 60 0RF Continued albuterol sulfate [Ventolin HFA] 90 mcg/actuation HFA aerosol inhaler 2 puff INHALATION .Q4-6H PRN (Reason: wheezing and/or shortness of breath) Qty: 18 5RF pregabalin [Lyrica] 75 mg capsule 75 mg PO BID Qty: 60 2RF hydrocodone-acetaminophen 7.5-325 mg tablet 1 tab PO .COMPLEX PRN (Reason: pain) Qty: 120 0RF Rx Instructions: 1 tab orally q 6 hrs prn for pain. Max of 4/day. Must last 30 days. PRN; tamsulosin 0.4 mg capsule 0.4 mg PO QDAY oxygen 2 L as needed See Rx Instructions .ROUTE .COMPLEX Rx Instructions: Nasal as needed; omeprazole 20 mg capsule,delayed release(DR/EC) 20 mg PO QAM Dose Instruction: take 1 capsule by mouth once daily losartan 100 mg tablet 100 mg PO QDAY fluticasone propion-salmeterol [Advair Diskus] 250-50 mcg/dose blister with device 1 inh INHALATION BID Qty: 60 5RF ferrous sulfate 325 mg (65 mg iron) tablet 325 mg PO BID Qty: 60 2RF folic acid 1 mg Tablet 1 mg PO DAILY 60 Days Qty: 60 0RF thiamine HCl (vitamin B1) 100 mg tablet 100 mg PO QDAY Qty: 60 2RF sodium chloride 1 gram tablet 2,000 mg PO QDAY Other Ambulatory Orders: Physical Therapy DC - General (Routine) Location: None Selected Ordered By: Moo Cruz Follow Up Plan Follow up with: Moo Cruz MD [Physician] - Patient Disposition: Home, Self-Care Plan of Treatment: Rehab Potential: Good I certify that the patient requires SNF services: No Overall status at discharge: patient is progressing back to baseline Discharge Orders: Discharge Order (Routine); Ordered 05/09/22 Ordered By: Moo Cruz Discharge Comment: cc: right hip fx s/p imn QUALITY VTE Deep Vein Thrombosis/Pulmonary Embolism Present on Admission: No
--- NOTE | 2022-05-11 09:48 | Operative Note ---
DATE OF OPERATION: 05/08/2022 DATE OF PROCEDURE: 05/08/2022 PREOPERATIVE DIAGNOSIS: Intertrochanteric fracture, right hip. POSTOPERATIVE DIAGNOSIS: Intertrochanteric fracture, right hip. PROCEDURE: Right hip cephalomedullary nailing. SURGEON: Moo Cruz M.D. FORMS BUILDER SURGEON: José Miguel Briceño PA-C. This provider's expertise and technical skill were required throughout the case. The PA assisted with preoperative coordination, intraoperative retraction, wound closure, and dressing and splint application, as well as postoperative documentation and care coordination. ANESTHESIA: Spinal with LMA assist. ESTIMATED BLOOD LOSS: 100 mL. COMPLICATIONS: None noted. SPECIMENS REMOVED: None. DRAINS: None. IMPLANTS: Synthes 11 x 125-degree titanium cannulated TFNA 170 mm sterile, MiiPharos titanium end cap TFNA nail, 5.0 locking screw, 38 mm length, and a 95 mm helical blade. INDICATIONS: The patient fell and was unable to ambulate. Radiographs have confirmed a displaced intertrochanteric fracture of the proximal femur. The patient was admitted to the hospital and underwent medical clearance. After a long discussion about treatment options, the patient elected to proceed with cephalomedullary nailing. The risks and benefits were discussed with the patient in detail including, but not limited to, the risks of anesthesia, problems with the heart or lungs related to anesthesia, infection, compromise or injury to the nerves and blood vessels, deep venous thrombosis, pulmonary embolism, pneumonia, continued pain after surgery, worsening pain or symptoms after surgery, swelling, loss of motion, malunion, non-union, leg length discrepancy, and need for repeat surgery. DESCRIPTION OF PROCEDURE: The patient was seen in preanesthesia waiting room where all questions were answered and the correct side and site were identified and marked. The patient was then brought to the operating room and administered the anesthetic, tranexamic acid, and given preoperative antibiotics. A timeout was then called. The patient was placed on the fracture table with all prominences well padded. The leg was brought into traction, adduction, and slight internal rotation. We used C-arm with orthogonal views to confirm anatomic reduction of the fracture. The extremity was prepped and draped in the usual sterile fashion. C-arm was again used to confirm landmarks. A percutaneous incision was created about 4 centimeters proximal to the greater trochanter. A guide pin was placed into the femoral canal under fluoroscopy after we found the appropriate starting position along the medial boarder of the trochanter and just anterior to the center position laterally. We placed a protector sleeve proximally and over-reamed with the 17 mm proximal reamer. Next, we changed out the guide pin for a ball-tipped guide candi and placed it into the femoral canal. Position was confirmed with the c-arm. The 170 mm Synthes TFNA nail was then placed with appropriate depth and version using the percutaneous targeting guide. The lateral helical blade sleeve was placed in the targeting guide and a second small percutaneous incision was made to allow the sleeve access to the lateral cortex of the femur. We drilled the guide pin into the center center position of the femoral head confirmed with fluoroscopy. We measured and drilled over the guide pin. The helical blade was then inserted and we compressed the fracture. The targeting sleeve was again used to place a percutaneous 5.0 mm screw distally in the static hole. It was drilled, measured, and placed using c-arm guidance. Traction was removed on the hip. The targeting device was then removed and final radiographs were taken confirming reduction of the fracture and adequate placement of all hardware. We thoroughly irrigated the three percutaneous incisions and closed the deep fascia with #0 Vicryl. We closed the subcutaneous tissue and skin in layers out to michelle in the skin. A sterile pressure dressing was applied. All needle and sponge counts were correct. The patient was transferred to the recovery room in stable condition. [email or web address] Job ID: [id number] Doc ID: [id number] Justus Cruz MD
== END 2022-05-11 11:50 | disposition home or self-care (01) ==
LOC: MEDSUR 17:46
PROVIDERS: ADMIT Internal Medicine; ATTEND Internal Medicine

== ENCOUNTER 2024-02-20 17:15 | Inpatient (IN) ==
[2024-02-20] MEDS: SODIUM CHLORIDE IV ONE (18:23)
[2024-02-20] MEDS: PIPERACILLIN SODIUM/TAZOBACTAM 3.375 GM in DEXTROSE 5% IN WATER 50 ML IV ONE (18:23)
[2024-02-20 18:25] LABS: Partial Thromboplastin Time 40.1 sec (20.0-37.0)
[2024-02-20 18:29] LABS: INR 1.4 (0.9-1.1); Prothrombin Time 18.1 sec (11.9-14.5)
[2024-02-20 18:34] LABS: ALT/SGPT 25 U/L (<40); AST/SGOT 110 U/L (<40); Albumin 2.5 gm/dL (3.2-5.2); Alkaline Phosphatase 136 U/L (39-117); Blood Urea Nitrogen 22 mg/dL (6-20); Calcium 6.7 mg/dL (8.6-10.4); Carbon Dioxide 21 mmol/L (22-30); Chloride 78 mmol/L (96-108); Globulin 2.5 gm/dL (2.2-3.7); Glomerular Filtration Rate 25; Glucose 96 mg/dL (70-105); Sodium 121 mmol/L (133-145)
[2024-02-20 18:41] LABS: Basophils # (Auto) 0.01 K/mcL (0.00-0.30); Basophils % (Auto) 0.1 % (0.0-2.0); Eosinophils # (Auto) 0.01 K/mcL (0.00-0.70); Eosinophils % (Auto) 0.1 % (0.0-7.0); Hematocrit 24.7 % (40.1-51.0); Hemoglobin 8.9 g/dL (13.7-17.5); Lymphocytes # (Auto) 0.49 K/mcL (1.50-4.80); Lymphocytes % (Auto) 3.5 % (15.5-49.0); Mean Cell Volume 109.8 fL (80.0-100.0); Monocytes # (Auto) 0.41 K/mcL (0.10-0.90); Monocytes % (Auto) 2.9 % (1.0-12.0); Platelet Count 98 K/mcL (140-440); RBC 2.25 M/mcL (4.63-6.08); Red Cell Distribution Width 18.1 % (11.5-14.5); WBC 14.1 K/mcL (4.5-11.0)
[2024-02-20] MEDS: POTASSIUM CHLORIDE 20 MEQ TABLET PO ONE (19:05)
[2024-02-20] MEDS: POTASSIUM CHLORIDE 20 MEQ in DEXTROSE 5% IN WATER 250 ML IV ONE (19:39)
[2024-02-20] MEDS: VANCOMYCIN 1,000 MG in 0.9 % SODIUM CHLORIDE 250 ML IV ONE (19:50)
[2024-02-20 21:00] LABS: Anisocytosis 3+ (None Seen); Lymphocytes % 5 % (15-49); Macrocytosis 1+ (None Seen); Monocytes % (Manual) 1 % (1-12); Platelet Estimate DECREASED (Normal); RBC Morphology ABNORMAL (Normal); Segmented Neutrophils % 94 % (38-78)
[2024-02-20] MEDS ORDERED: CALCIUM GLUCONATE 4.65 MEQ/10 ML VIAL IV ONE (21:20)
[2024-02-20 22:09] LABS: Phosphorous 4.3 mg/dL (2.5-4.5)
[2024-02-20 22:11] LABS: Appearance,Urine Slightly Cloudy (Clear); Bilirubin,Urine Moderate mg/dL (Negative); Color,Urine Brown; Culture Indicated,Urine No; Glucose,Urine (UA) Negative (Negative); Ketones,Urine Negative (Negative); Leukocyte Esterase,Urine Negative /uL (Negative); Nitrate,Urine Negative (Negative); PH,Urine 5.5 (5.0-9.0); Protein,Urine Negative (Negative); Urine Blood Negative ery/mcL (Negative); Urobilinogen,Urine Normal
[2024-02-20] MEDS: MAGNESIUM SULFATE 2 GM/50 ML BAG IV SCH (22:14)
[2024-02-20] MEDS: morphine 2 MG/ML VIAL IV ONE (22:18)
[2024-02-20] MEDS: CALCIUM GLUCONATE 9.3 MEQ in DEXTROSE 5% IN WATER 100 ML IV SCH (22:50)
[2024-02-20] MEDS ORDERED: LACTULOSE 20 GM/30 ML ORAL.SOL PO PRN (23:16)
[2024-02-20] MEDS ORDERED: chlordiazePOXIDE 25 MG CAPSULE PO PRN (23:16)
[2024-02-20] MEDS ORDERED: IPRATROPIUM/ALBUTEROL 3 ML AMPUL.NEB NEB PRN (23:16)
[2024-02-20] MEDS ORDERED: LORazepam 2 MG/ML VIAL IV PRN ×2 (23:16→23:56)
[2024-02-20] MEDS ORDERED: MAGNESIUM SULFATE 2 GM/50 ML BAG IV PRN (23:16)
[2024-02-20] MEDS ORDERED: POLYETHYLENE GLYCOL 3350 17 GM PACKET PO PRN (23:16)
[2024-02-20] MEDS ORDERED: SENNOSIDES 1 TABLET PO PRN (23:16)
[2024-02-20] MEDS ORDERED: VANCOMYCIN PER PHARMACY IV SCH (23:16)
[2024-02-20] MEDS ORDERED: ONDANSETRON 4 MG/2 ML VIAL IV PRN (23:16)
[2024-02-20] MEDS ORDERED: ACETAMINOPHEN 325 MG TABLET PO PRN (23:16)
[2024-02-20] MEDS ORDERED: POTASSIUM CHLORIDE 20 MEQ TABLET PO PRN ×2 (23:16)
[2024-02-20 23:49] LABS: POC Calcium, Ionized 0.73 (1.16-1.32); POC Potassium 3.2 (3.3-5.1)
[2024-02-21] MEDS: GABAPENTIN 300 MG CAPSULE PO SCH (00:13)
[2024-02-21] MEDS: NOREPINEPHRINE BITARTRATE 4 MG/4 ML VIAL IV ONE (00:14)
[2024-02-21] MEDS: MIDAZOLAM HCL 50 MG/10 ML VIAL ONE (00:14)
[2024-02-21] MEDS: MULTIVIT,THER IRON,CA,FA & MIN 1 TABLET PO SCH (00:16)
[2024-02-21] MEDS: FOLIC ACID 1 MG TABLET PO SCH (00:16)
[2024-02-21] MEDS: ALBUMIN HUMAN 12.5 GM/50 ML VIAL IV SCH ×2 (00:17→08:00)
[2024-02-21] MEDS: ALBUMIN HUMAN 25 GM/100 ML BAG IV ONE ×2 (00:21→00:53)
[2024-02-21] MEDS: MIDAZOLAM HCL 50 MG in 0.9 % SODIUM CHLORIDE 90 ML IV SCH (00:22)
[2024-02-21 00:34] LABS: ALT/SGPT 25 U/L (<40); AST/SGOT 106 U/L (<40); Albumin 2.4 gm/dL (3.2-5.2); Alkaline Phosphatase 143 U/L (39-117); Anion Gap 17.5 (8.0-16.0); Bilirubin,Direct 2.1 mg/dL (<0.3); Bilirubin,Total 2.7 mg/dL (0.1-1.0); Blood Urea Nitrogen 21 mg/dL (6-20); Calcium 6.3 mg/dL (8.6-10.4); Carbon Dioxide 22 mmol/L (22-30); Chloride 83 mmol/L (96-108); Globulin 2.5 gm/dL (2.2-3.7); Glomerular Filtration Rate 24; Glucose 118 mg/dL (70-105); Lactate Dehydrogenase 594 U/L (135-225); Phosphorous 4.5 mg/dL (2.5-4.5); Potassium 3.3 mmol/L (3.3-5.1); Sodium 122 mmol/L (133-145); Triglycerides 162 mg/dL (<150); Uric Acid 10.8 mg/dL (2.5-8.0)
[2024-02-21] MEDS: EPINEPHrine 1 MG/10 ML (1:10,000) SYRINGE IV ONE (00:53)
[2024-02-21] MEDS: NOREPINEPHRINE BITARTRATE 16 MG in 0.9 % SODIUM CHLORIDE 234 ML IV SCH (01:07)
[2024-02-21] MEDS: 0.9 % SODIUM CHLORIDE 250 ML IV SCH (01:09)
[2024-02-21] MEDS: HEPARIN 5,000 UNIT/ML VIAL SQ SCH (01:25)
[2024-02-21] MEDS: FAMOTIDINE/PF 20 MG/2 ML VIAL IV SCH (01:25)
[2024-02-21] MEDS: HEPARIN 5,000 UNIT/ML VIAL ONE (01:30)
[2024-02-21] MEDS: LACTULOSE 20 GM/30 ML ORAL.SOL ONE ×2 (01:30→01:31)
[2024-02-21] MEDS: cefTRIAXone 1 GM VIAL ONE ×2 (01:31→02:56)
[2024-02-21] MEDS: FAMOTIDINE/PF 20 MG/2 ML VIAL IV ONE (01:31)
[2024-02-21] MEDS: CALCIUM GLUCONATE 4.65 MEQ in DEXTROSE 5% IN WATER 50 ML IV ONE (01:32)
[2024-02-21] MEDS: THIAMINE 100 MG in 0.9 % SODIUM CHLORIDE 50 ML IV SCH ×2 (02:05→14:42)
[2024-02-21] MEDS: metroNIDAZOLE 500 MG/100 ML BAG IV SCH ×2 (02:25→08:00)
[2024-02-21] MEDS: CALCIUM GLUCONATE 4.65 MEQ/10 ML VIAL ONE (02:56)
[2024-02-21] MEDS: metroNIDAZOLE 100 ML IV ONE (02:56)
[2024-02-21] MEDS: LACTATED RINGERS 1,000 ML IV PRN (03:00)
[2024-02-21] MEDS: cefTRIAXone 1 GM VIAL IV SCH (03:49)
[2024-02-21] MEDS: POTASSIUM CHLORIDE 40 MEQ in DEXTROSE 5% IN WATER 500 ML IV PRN (05:25)
[2024-02-21] MEDS: 0.9 % SODIUM CHLORIDE 10 ML SYRINGE IV SCH (05:32)
[2024-02-21] MEDS: LACTULOSE 20 GM/30 ML ORAL.SOL PR ONE (05:33)
[2024-02-21] MEDS: POTASSIUM CHLORIDE 20 MEQ/10 ML VIAL IV ONE (05:33)
[2024-02-21 06:40] LABS: INR 1.4 (0.9-1.1); Prothrombin Time 17.6 sec (11.9-14.5)
[2024-02-21 06:56] LABS: ALT/SGPT 29 U/L (<40); AST/SGOT 120 U/L (<40); Albumin 2.9 gm/dL (3.2-5.2); Albumin/Globulin Ratio 1.3 (1.0-2.3); Alkaline Phosphatase 121 U/L (39-117); Bilirubin,Direct 1.9 mg/dL (<0.3); Bilirubin,Total 2.6 mg/dL (0.1-1.0); Blood Urea Nitrogen 22 mg/dL (6-20); Calcium 7.2 mg/dL (8.6-10.4); Carbon Dioxide 19 mmol/L (22-30); Chloride 82 mmol/L (96-108); Globulin 2.2 gm/dL (2.2-3.7); Glomerular Filtration Rate 26; Glucose 80 mg/dL (70-105); Lactate Dehydrogenase 647 U/L (135-225); Phosphorous 5.8 mg/dL (2.5-4.5); Potassium 3.7 mmol/L (3.3-5.1); Sodium 122 mmol/L (133-145); Triglycerides 153 mg/dL (<150); Uric Acid 10.8 mg/dL (2.5-8.0)
[2024-02-21] MEDS: IPRATROPIUM/ALBUTEROL 3 ML AMPUL.NEB NEB SCH (08:25)
[2024-02-21] MEDS: BUDESONIDE 0.5 MG/2 ML AMPUL.NEB NEB SCH (08:30)
[2024-02-21 08:33] LABS: Basophils # (Auto) 0.06 K/mcL (0.00-0.30); Basophils % (Auto) 0.5 % (0.0-2.0); Eosinophils # (Auto) 0.02 K/mcL (0.00-0.70); Eosinophils % (Auto) 0.2 % (0.0-7.0); Hematocrit 24.3 % (40.1-51.0); Hemoglobin 8.3 g/dL (13.7-17.5); Lymphocytes # (Auto) 0.41 K/mcL (1.50-4.80); Lymphocytes % (Auto) 3.7 % (15.5-49.0); Mean Cell Volume 114.6 fL (80.0-100.0); Mean Corpuscular HGB Conc 34.2 g/dL (31.0-36.0); Mean Platelet Volume 14.1 fL (8.8-12.5); Monocytes # (Auto) 0.53 K/mcL (0.10-0.90); Monocytes % (Auto) 4.8 % (1.0-12.0); Neutrophils % (Auto) 89.8 % (38.0-78.0); Platelet Count 118 K/mcL (140-440); RBC 2.12 M/mcL (4.63-6.08); WBC 11.1 K/mcL (4.5-11.0)
[2024-02-21] MEDS ORDERED: SODIUM BICARBONATE 50 MEQ/50 ML VIAL IV ONE ×2 (08:52→15:02)
[2024-02-21] MEDS: DOCUSATE SODIUM 100 MG CAPSULE PO SCH (08:59)
[2024-02-21] MEDS: LACTATED RINGERS 1,000 ML IV SCH ×2 (10:06→13:35)
[2024-02-21] MEDS: CHLORHEXIDINE GLUCONATE 15 ML UDC SWABMOUTH SCH (10:12)
[2024-02-21] MEDS: LACTULOSE 20 GM/30 ML ORAL.SOL PT SCH (10:13)
[2024-02-21] MEDS: EMPTYBAG IV SCH (10:36)
[2024-02-21] MEDS: SODIUM BICARBONATE IV SCH (10:36)
[2024-02-21] MEDS ORDERED: 0.9 % SODIUM CHLORIDE 250 ML IV ONE (11:32)
[2024-02-21] MEDS: fentaNYL 100 MCG/2 ML VIAL IV PRN (11:53)
[2024-02-21] MEDS ORDERED: 0.9 % SODIUM CHLORIDE 10 ML SYRINGE IV PRN (11:58)
[2024-02-21] MEDS: GABAPENTIN 300 MG CAPSULE PT SCH (13:34)
[2024-02-21] MEDS ORDERED: VANCOMYCIN 750 MG in 0.9 % SODIUM CHLORIDE 250 ML IV SCH (14:00)
[2024-02-21] MEDS ORDERED: CALCIUM GLUCONATE 4.65 MEQ in DEXTROSE 5% IN WATER 50 ML IV SCH (15:11)
[2024-02-21] MEDS ORDERED: 0.9 % SODIUM CHLORIDE 250 ML IV SCH (15:15)
[2024-02-21] MEDS ORDERED: VASOPRESSIN 20 UNIT in DEXTROSE 5% IN WATER 99 ML IV SCH (15:15)
[2024-02-21] MEDS ORDERED: LACTOPEROXI/GLUC OXID/POT THIO 1 EACH GEL..EA. TOPICAL PRN (15:30)
[2024-02-21] MEDS ORDERED: SODIUM BICARBONATE VIAL 50 MEQ in EMPTYBAG 0 ML IV ONE (15:30)
[2024-02-21] MEDS ORDERED: ONDANSETRON 4 MG/2 ML VIAL IV PRN (15:30)
[2024-02-21] MEDS ORDERED: LORazepam 2 MG/ML VIAL IV PRN (15:30)
[2024-02-21] MEDS ORDERED: morphine 4 MG/ML VIAL NEB PRN (15:30)
[2024-02-21] MEDS ORDERED: morphine 4 MG/ML VIAL IV PRN (15:30)
[2024-02-21] MEDS ORDERED: SODIUM BICARBONATE VIAL 150 MEQ in WATER FOR INJECTION,STERILE 850 ML IV SCH (16:00)
[2024-02-21] MEDS ORDERED: cefTRIAXone 2 GM in DEXTROSE 5% IN WATER 50 ML IV SCH (18:00)
[2024-02-21] MEDS ORDERED: 0.9 % SODIUM CHLORIDE 10 ML SYRINGE IV SCH ×2 (21:00→22:00)
[2024-02-21 22:52] LABS: Amphetamine Screen,Urine None detected; Barbiturate Screen,Urine None detected; Benzodiazepines Screen,Urine None detected; Cannabinoid Screen,Urine None detected; Cocaine Screen,Urine None detected; Opiate Screen,Urine Suspect Positive; Oxycodone, Urine Screen None detected; Phencyclidine Screen,Urine None detected
[2024-02-22] MEDS ORDERED: GABAPENTIN 300 MG CAPSULE PT SCH (15:00)
[2024-02-27 06:08] LABS: Opiate Screen Positive ng/mL (Cutoff=300)
== END 2024-02-21 18:00 | disposition expired | DRG 871 ==
LOC: ED 17:15 → ICU 23:06
PROVIDERS: ADMIT Internal Medicine; ATTEND Internal Medicine